=== PATIENT | female | born 1950 | race Caucasian/White ===

== ENCOUNTER 2016-12-08 21:22 | Inpatient (IN) | payer OTHER, MEDICARE ==
[~2016-12-08] VITALS: Ht 160 cm; Wt 51.0 kg
[~2016-12-08 21:22] MED LIST: ALBU.5I NEB; ALBUAER3 INH; AZIT250T3 PO; LISI-515 PO; NAPR250T57 PO; PRED-503 PO; VENTAER INH
[2016-12-08] MEDS ORDERED: MORPHINE SULFATE 4 MG/ML INJ IV ONE (21:30)
[2016-12-08] MEDS ORDERED: SODIUM CHLORIDE 0.9% FLUSH 10 ML FLUSH IVF PRN (21:30)
[2016-12-08 21:31] VITALS: BP 209/88; PULSE 82; RESP 24; TEMP 94.4; O2SAT 100
[2016-12-08] MEDS ORDERED: SODIUM CHLOR 0.9% 1000 ML INJ 800 ML IV ONE (21:51)
[2016-12-08] MEDS ORDERED: SODIUM CHLOR 0.9% 1000 ML INJ 1,000 ML IV ONE (21:51)
--- NOTE | 2016-12-08 21:51 | PD ---
HPI . Vomiting and abdominal pain Chief Complaint: GI Complaint Time Seen by Provider: 21:37 Travel History International Travel<30 days: No Contact w/Intl Traveler<30days: No Traveled to known affect area: No History of Present Illness HPI Patient presents to us via EMS with the acute onset of abdominal pain followed by nausea and vomiting. She states that it started after supper. She reports 4 episodes of emesis. No diarrhea. She reports severe, crampy abdominal pain. Pain has been unrelieved by vomiting. She is also having shaking chills. She denies any urinary symptoms. PFSH Past Medical History Cancer: No Cardiovascular Problems: No COPD: Yes Diminished Hearing: No Endocrine: No Genitourinary: No Hypertension: Yes Immune Disorder: No Musculoskeletal: Yes Neurologic: Yes Psychiatric: No Reproductive: Yes (HYSTERECTOMY) Respiratory: Yes Past Surgical History Abdominal Surgery: Yes (APPENDECTOMY) Appendectomy: Yes Cardiac Surgery: No Ear Surgery: No Endocrine Surgery: No Eye Surgery: No Genitourinary Surgery: No Gynecologic Surgery: Yes (HYSTERECTOMY) Hysterectomy: Yes Oral Surgery: Yes (TONSILLECTOMY) Thoracic Surgery: No Other Surgery: Yes Social History Alcohol Use: No Tobacco Use: Yes (1 ppd) Substance Use: Yes (MARIJUANA ) Allergies-Medications (Allergen,Severity, Reaction): Coded Allergies: Penicillin (Verified Allergy, Severe, 08/20/16) Codeine (Verified Adverse Reaction, Mild, nausea , 08/20/16) Uncoded Allergies: ? Other unknown meds (Allergy, Mild, 07/19/06) Reported Meds & Prescriptions Reported Meds & Active Scripts Active Ventolin Hfa 18 GM Inh (Albuterol Sulfate) 90 Mcg/Act Aer 2 Puff INH Q4-6H PRN May substitute for different brand albuterol inhaler. Deltasone (Prednisone) 20 Mg Tab 40 Mg PO DAILY 10 Days Albuterol Neb (Albuterol Sulfate) 2.5 Mg/0.5 Ml Neb 2.5 Mg NEB TID NEB PRN Note: The Albuterol Sulfate Inhalation Solution is concentrated and must be diluted. Read complete instructions carefully before using. Reported Tylenol (Acetaminophen) 325 Mg Tab 1,300 Mg PO DAILY PRN Lisinopril 20 Mg Tab 20 Mg PO BID Review of Systems Except as stated in HPI: all other systems reviewed are Neg General / Constitutional: Positive: Fever, Chills Respiratory: No: Cough Gastrointestinal: Positive: Nausea, Vomiting, Abdominal Pain, No: Diarrhea Genitourinary: No: Urgency, Frequency, Dysuria Physical Exam Narrative GENERAL: This is a small woman who is having rigors. Her rectal temp was about 94. SKIN: Warm and dry. HEAD: Atraumatic. Normocephalic. EYES: Pupils equal and round. ENT: No nasal bleeding or discharge. Mucous membranes pink but dry. NECK: Trachea midline. Neck supple. CARDIOVASCULAR: Regular rate and rhythm. Heart sounds are normal. RESPIRATORY: No accessory muscle use. Lungs sounded clear. She is tachypneic. GASTROINTESTINAL: Abdomen soft, non-tender, nondistended. MUSCULOSKELETAL: No obvious deformities. No edema. NEUROLOGICAL: Awake and alert. No obvious cranial nerve deficits. Motor grossly within normal limits. Normal speech. PSYCHIATRIC: Appropriate mood and affect; insight and judgment normal. Data Data Last Documented VS Vital Signs Date Time Temp Pulse Resp B/P Pulse Ox O2 Delivery O2 Flow Rate FiO2 12/08/16 22:52 96.6 79 18 165/76 93 Room Air Orders Complete Blood Count With Diff (12/08/16 21:27) Basic Metabolic Panel (Bmp) (12/08/16 21:27) Urinalysis - C+S If Indicated (12/08/16 21:27) Iv Access Insert/Monitor (12/08/16 21:27) Ecg Monitoring (12/08/16 21:27) Oximetry (12/08/16 21:27) Morphine Inj (Morphine Inj) (12/08/16 21:30) Sodium Chloride 0.9% Flush (Ns Flush) (12/08/16 21:30) Blood Culture (12/08/16 21:27) Urinary Catheter Insert/Apply (12/08/16 21:27) Lactic Acid Sepsis Protocol (12/08/16 21:27) Chest, Single Ap (12/08/16 21:51) Sodium Chlor 0.9% 1000 Ml Inj (Ns 1000 M (12/08/16 21:51) Sodium Chlor 0.9% 1000 Ml Inj (Ns 1000 M (12/08/16 21:51) Ct Abd/Pel W/O Iv Contrast (12/08/16 21:54) Vancomycin Inj (Vancomycin Inj) (12/08/16 23:21) Aztreonam Inj (Azactam Inj) (12/08/16 23:21) Metronidazole 500 Mg Inj (Flagyl 500 Mg (12/08/16 23:21) Labs Laboratory Tests Test 12/08/16 12/08/16 22:03 22:05 Urine Color YELLOW Urine Turbidity CLEAR Urine pH 5.5 Urine Specific [place] 1.016 Urine Protein TRACE mg/dL Urine Glucose (UA) NEG mg/dL Urine Ketones NEG mg/dL Urine Occult Blood NEG Urine Nitrite NEG Urine Bilirubin NEG Urine Urobilinogen LESS THAN 2.0 MG/DL Urine Leukocyte Esterase NEG Urine RBC LESS THAN 1 /hpf Urine WBC LESS THAN 1 /hpf Urine Hyaline Casts 27 /lpf Urine Mucus FEW /lpf Microscopic Urinalysis Comment CULT NOT INDICATED White Blood Count 17.0 TH/MM3 Red Blood Count 4.60 MIL/MM3 Hemoglobin 13.6 GM/DL Hematocrit 41.9 % Mean Corpuscular Volume 91.0 FL Mean Corpuscular Hemoglobin 29.5 PG Mean Corpuscular Hemoglobin 32.4 % Concent Red Cell Distribution Width 15.2 % Platelet Count 305 TH/MM3 Mean Platelet Volume 9.6 FL Neutrophils (%) (Auto) 63.2 % Lymphocytes (%) (Auto) 29.6 % Monocytes (%) (Auto) 4.6 % Eosinophils (%) (Auto) 1.9 % Basophils (%) (Auto) 0.7 % Neutrophils # (Auto) 10.8 TH/MM3 Lymphocytes # (Auto) 5.0 TH/MM3 Monocytes # (Auto) 0.8 TH/MM3 Eosinophils # (Auto) 0.3 TH/MM3 Basophils # (Auto) 0.1 TH/MM3 CBC Comment DIFF FINAL Differential Comment Sodium Level 135 MEQ/L Potassium Level 4.4 MEQ/L Chloride Level 102 MEQ/L Carbon Dioxide Level 21.7 MEQ/L Anion Gap 11 MEQ/L Blood Urea Nitrogen 31 MG/DL Creatinine 2.01 MG/DL Estimat Glomerular Filtration 25 ML/MIN Rate Random Glucose 127 MG/DL Lactic Acid Level 2.6 mmol/L Calcium Level 8.6 MG/DL [facility] Medical Decision Making Medical Screen Exam Complete: Yes Emergency Medical Condition: Yes Medical Record Reviewed: Yes (medical history is positive for COPD and hypertension) Differential Diagnosis Differential diagnosis of abdominal pain includes but is not limited to gastritis, pancreatitis, hepatitis, gastroenteritis, gallbladder disease, constipation, urinary retention, UTI, peptic ulcer disease, diverticulitis or appendicitis Narrative Course Patient presents to us via EMS with vomiting and abdominal pain. She is hypothermic. I have initiated a septic workup. CBC & BMP Diagram 12/08/16 22:05 Lactic acid is 2.6. UA is negative. Last Impressions Abdomen/Pelvis CT 12/08/162153 Signed Impressions: Service Date/Time: Thursday, December 08, 2016 22:25 - CONCLUSION: Marked thickening of the wall the colon which may reflect pseudomembranous colitis or other infectious or inflammatory etiologies. No perforation is seen Reinaldo Anthony MD Chest X-Ray 12/08/162150 Signed Impressions: Service Date/Time: Thursday, December 08, 2016 21:57 - CONCLUSION: 1. No active disease. Capsular calcifications around breast implants. Adan Carbajal MD Critical Care Narrative Aggregate critical care time was 45 minutes. Time to perform other separately billable procedures was not included in the critical care time. My time did not include minutes spent treating any other patients simultaneously or on activities that did not directly contribute to the patient's treatment. The services I provided to this patient were to treat and/or prevent clinically significant deterioration due to hypothermia, rule out sepsis I provided critical care services requiring my management, as noted below: Chart data review, documentation time, medication orders and management, vital sign assessments/reviewing monitor data, ordering and reviewing lab tests, ordering and interpreting/reviewing x-rays and diagnostic studies, care of the patient and discussion of the patient with the admitting physicians Sepsis Criteria SIRS Criteria (2 or more): Temp > 100.9 or < 96.8, RR > 20 or PaCO2 < 32, WBC > 10498, < 4000 or > 10% bands Sepsis Criteria (SIRS+source): Infect source susp/known Severe Sepsis (+one): Lactate >2 Criteria Outcome: Meets SIRS criteria, Meets sepsis criteria, Meets severe sepsis criteria Physician Communication Physician Communication Patient will be admitted to Dr. Garcia. Diagnosis Primary Impression: Sepsis Qualified Code: A41.9 - Sepsis, due to unspecified organism Additional Impression: Colitis Admitting Information Admitting Physician Requests: Admit Condition: Stable Nguyen Lamb MD Dec 08, 2016 21:51
[2016-12-08 22:09] VITALS: BP 166/77; PULSE 78; RESP 17; TEMP 96.1; O2SAT 96
[2016-12-08 22:33] LABS: BLOOD, URINE NEG (NEG); COMMENT (UR) CULT NOT INDICATED; CULTURE IF INDICATED CULT NOT INDICATED; GLUCOSE,URINE NEG (NEG); HYALINE CAST, URINE 27 /lpf (RARE); KETONE, URINE NEG (NEG); MUCUS URINE FEW /lpf (OCC); NITRITE,URINE NEG (NEG); PH, URINE 5.5 (5.0-8.5); URINE COLOR YELLOW (YELLW/STRAW)
[2016-12-08 22:33] LABS: AUTOMATED NEUTROPHIL # 10.8 TH/MM3 (1.8-7.7); BASOPHIL # 0.1 TH/MM3 (0-0.2); BASOPHIL % 0.7 % (0.0-2.0); EOSINOPHIL # 0.3 TH/MM3 (0-0.4); EOSINOPHIL % 1.9 % (0.0-4.0); HEMATOCRIT 41.9 % (35.0-46.0); HEMO FLAGS DIFF FINAL; LYMPH % 29.6 % (9.0-44.0); MEAN CORPUSCULAR HEMOGLOBIN 29.5 PG (27.0-34.0); MEAN CORPUSCULAR HGB CONC 32.4 % (32.0-36.0); MONO % 4.6 % (0.0-8.0); NEUT % 63.2 % (16.0-70.0); PLATELET COUNT 305 TH/MM3 (150-450); RED CELL DISTRIBUTION WIDTH 15.2 % (11.6-17.2)
[2016-12-08 22:51] LABS: BICARBONATE 21.7 MEQ/L (21.0-32.0); POTASSIUM 4.4 MEQ/L (3.5-5.1)
[2016-12-08 22:52] VITALS: BP 165/76; PULSE 79; RESP 18; TEMP 96.6; O2SAT 93
--- NOTE | 2016-12-08 22:54 | RADRPT ---
EXAM DATE/TIME: 12/08/2016 21:57 [facility] COMPARISON: CHEST SINGLE AP, June 06, 2014, 19:14. INDICATIONS : Fever. MEDICAL HISTORY : Chronic obstructive pulmonary disease. SURGICAL HISTORY : None. ENCOUNTER: Initial ACUITY: 1 day PAIN SCORE: 0/10 LOCATION: chest FINDINGS: A single view of the chest demonstrates the lungs to be symmetrically aerated without evidence of mas s, infiltrate or effusion. The cardiomediastinal contours are unremarkable. Osseous structures are intact. CONCLUSION: 1. No active disease. Capsular calcifications around breast implants. Adan Carbajal MD on December 08, 2016 at 22:51 Board Certified Radiologist. This report was verified electronically.
[2016-12-08] MEDS ORDERED: TYLE325T PO (22:55)
--- NOTE | 2016-12-08 23:10 | RADRPT ---
EXAM DATE/TIME: 12/08/2016 22:25 [facility] COMPARISON: No previous studies available for comparison. INDICATIONS : Abdominal pain, nausea and vomiting with near sycope. ORAL CONTRAST: No oral contrast ingested. RADIATION DOSE: 4.51 CTDIvol (mGy) MEDICAL HISTORY : Non-responsive. SURGICAL HISTORY : Non-responsive. ENCOUNTER: Initial ACUITY: 1 day PAIN SCALE: Non-responsive LOCATION: abdomen TECHNIQUE: Volumetric scanning of the abdomen and pelvis was performed. Using automated exposure control and ad justment of the mA and/or kV according to patient size, radiation dose was kept as low as reasonably achievable to obtain optimal diagnostic quality images. FINDINGS: There are centrilobular emphysematous changes in both lower lobes. The gallbladder and pancreas are u nremarkable. No intrahepatic or extrahepatic ductal dilatation is seen. The adrenal glands are unrema rkable. There is a small atrophic left kidney. The right kidney is hypertrophied and rotated into the axial plane. No abnormally enlarged lymph nodes are identified. There is marked thickening of the wall of the colon particularly the transverse colon which may refle ct pseudomembranous colitis. There is sparing of the sigmoid colon and right colon. No free air is id entified. A Davis catheter is present within the bladder which does not allow for evaluation. CONCLUSION: Marked thickening of the wall the colon which may reflect pseudomembranous colitis or other infectiou s or inflammatory etiologies. No perforation is seen Reinaldo Anthony MD on December 08, 2016 at 23:04 Board Certified Radiologist. This report was verified electronically.
[2016-12-08] MEDS ORDERED: AZTREONAM INJ 2,000 MG in SODIUM CHLORIDE 0.9% INJ 100 ML IV STA (23:21)
[2016-12-08] MEDS ORDERED: metroNIDAZOLE 500 MG INJ 100 ML IV STA (23:21)
[2016-12-08] MEDS ORDERED: VANCOMYCIN INJ 1,000 MG in SODIUM CHLOR 0.9% 250 ML INJ 250 ML IV STA (23:21)
[2016-12-08] MEDS ORDERED: NALOXONE HCL 0.4 MG/ML AMP IV PRN (23:45)
[2016-12-08] MEDS ORDERED: ACETAMINOPHEN 325 MG TAB PO PRN (23:45)
[2016-12-08] MEDS: SODIUM CHLOR 0.9% 1000 ML INJ 1,000 ML IV SCH (23:57)
[2016-12-09] VITALS (11 sets, daily range): BP systolic 142–218; BP diastolic 82–107; PULSE 82–90; RESP 16–20; TEMP 95.7–97.9; O2SAT 94–100
[2016-12-09] MEDS ORDERED: ALBUTEROL SULFATE 90 MCG/ACT HFA 18 GM INHALER INH PRN
[2016-12-09 00:15] LABS: LACTIC ACID GHOST NOT REPORTABLE
[2016-12-09] MEDS: HEPARIN SODIUM - SQ 10,000 UNITS/ML VIAL SQ SCH ×2 (00:52→13:38)
[2016-12-09] MEDS: MORPHINE SULFATE 4 MG/ML INJ IV PRN ×3 (01:29→19:58)
[2016-12-09] MEDS: cloNIDine HCL 0.1 MG TAB PO PRN ×3 (03:28→21:56)
[2016-12-09 05:08] LABS: C. DIFF EPI 027 PRESUMPTIVE NEGATIVE (NEGATIVE); C. DIFF TOXIN PCR NEGATIVE (NEGATIVE)
[2016-12-09 07:38] LABS: ALKALINE PHOSPHATASE 130 U/L (45-117); ALT (GPT) 20 U/L (10-53); ANION GAP 8 MEQ/L (5-15); AST (GOT) 18 U/L (15-37); BICARBONATE 19.2 MEQ/L (21.0-32.0); BLOOD UREA NITROGEN 27 MG/DL (7-18); CHLORIDE 111 MEQ/L (98-107); GLOMERULAR FILTRATION RATE 38 ML/MIN (>89); POTASSIUM 4.4 MEQ/L (3.5-5.1); SODIUM (NA) 138 MEQ/L (136-145); TOTAL BILIRUBIN ADULT 0.3 MG/DL (0.2-1.0)
[2016-12-09] MEDS: RESP: ALBUTEROL 2.5 MG/IPRATROPIUM 0.5 MG NEB (PRN) NEB ×2 (08:58→14:28)
[2016-12-09] MEDS: predniSONE 20 MG TAB PO SCH (09:12)
[2016-12-09] MEDS: metroNIDAZOLE 500 MG INJ 100 ML IV SCH ×3 (09:12→23:46)
[2016-12-09] MEDS: LISINOPRIL 20 MG TAB PO SCH ×2 (09:12→19:44)
[2016-12-09] MEDS: SODIUM CHLORIDE 0.9% FLUSH 10 ML FLUSH IV FLUSH SCH ×2 (09:12→19:44)
[2016-12-09] MEDS: SODIUM CHLOR 0.9% 1000 ML INJ 1,000 ML IV SCH (09:41)
[2016-12-09] MEDS: ONDANSETRON HCL 4 MG/2 ML VIAL IVP PRN (11:23)
[2016-12-09] MEDS: AZTREONAM INJ 1,000 MG in SODIUM CHLORIDE 0.9% INJ 100 ML IV SCH ×2 (11:24→22:24)
[2016-12-09] MEDS ORDERED: FUROSEMIDE 20 MG/2 ML VIAL IV PUSH ONE (12:30)
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
[2016-12-09] MEDS: NIFEdipine 60 MG SUSTAINED RELEASE TAB PO SCH (13:38)
[2016-12-09] MEDS ORDERED: PEG (High)/E-LYTE SOLN 4000 ML BTL PO ONE (16:00)
[2016-12-09] MEDS: CIPROFLOXACIN 500 MG TAB PO SCH (19:44)
[2016-12-10] VITALS (8 sets, daily range): BP systolic 148–218; BP diastolic 72–100; PULSE 75–87; RESP 17–18; TEMP 96.5–99.3; O2SAT 94–100
[2016-12-10] MEDS: SODIUM CHLOR 0.9% 1000 ML INJ 1,000 ML IV SCH ×2 (02:47→22:47)
[2016-12-10] MEDS ORDERED: SOD PHOSPHATE/SOD BIPHOSPHATE (ADULT) ENEMA 133ML RECTAL ONE (07:00)
[2016-12-10] MEDS ORDERED: MAGNESIUM CITRATE SOLN 300 ML BTL PO ONE (07:00)
[2016-12-10] MEDS ORDERED: INSULIN HUMAN REGULAR 1,000 UNITS/10 ML VIAL SQ PRN (08:30)
[2016-12-10] MEDS ORDERED: SODIUM CHLORID 0.9% 500 ML IV PRN (08:30)
[2016-12-10] MEDS ORDERED: CHLORHEXIDINE GLUCONATE 2 % 1 PACK (2 CLOTHS) TOPICAL PRN (08:30)
[2016-12-10] MEDS ORDERED: POVIDONE IODINE 5% (ANTISEPSIS KIT) 4 APPLICATIONS EACH NARE PRN (08:30)
[2016-12-10] MEDS ORDERED: LACTATED RINGER'S 1000 ML IV PRN (08:30)
[2016-12-10] MEDS ORDERED: METOPROLOL TARTRATE 25 MG TAB PO PRN (08:30)
[2016-12-10] MEDS: metroNIDAZOLE 500 MG INJ 100 ML IV SCH ×2 (08:31→16:37)
[2016-12-10] MEDS: RESP: ALBUTEROL 2.5 MG/IPRATROPIUM 0.5 MG NEB (PRN) NEB ×2 (08:46→20:38)
[2016-12-10] MEDS: NIFEdipine 60 MG SUSTAINED RELEASE TAB PO SCH (09:00)
[2016-12-10] MEDS: LISINOPRIL 20 MG TAB PO SCH ×2 (09:00→21:00)
[2016-12-10] MEDS: predniSONE 20 MG TAB PO SCH (09:00)
[2016-12-10] MEDS: SODIUM CHLORIDE 0.9% FLUSH 10 ML FLUSH IV FLUSH SCH (09:00)
[2016-12-10] MEDS: CIPROFLOXACIN 500 MG TAB PO SCH ×2 (09:00→21:00)
[2016-12-10] MEDS: AZTREONAM INJ 1,000 MG in SODIUM CHLORIDE 0.9% INJ 100 ML IV SCH ×2 (10:00→22:00)
[2016-12-10] MEDS ORDERED: PROPOFOL 200 MG/20 ML AMP IV ONE (11:02)
--- NOTE | 2016-12-10 11:24 | GIPROC ---
[facility] [address] [facility]. [facility], [address] COLONOSCOPY PROCEDURE REPORT EXAM DATE: 12/10/2016 PATIENT NAME: Tianna Alcocer MR #: [id number] BIRTHDATE: 1950 ENDOSCOPIST: Cynthia Figueroa MD ORDER #: [id number] JOCKEY VALET: Deven Ibarra and Huber Mcgowan STATUS: inpatient INDICATIONS: The patient is a 66 yr old female here for a colonoscopy due to abdominal pain, colitis PROCEDURE PERFORMED: Colonoscopy with biopsy MEDICATIONS: None and Per Anesthesia. PREP QUALITY: fair PREP TYPE:GoLytely ESTIMATED BLOOD LOSS: None CONSENT: The patient understands the risks and benefits of the procedure and understands that these risks include, but are not limited to: sedation, allergic reaction, infection, perforation and/or bleeding. Alternative means of evaluation and treatment include, among others: physical exam, x-rays, and/or surgical intervention. The patient elects to proceed with this endoscopic procedure. medical equipment was checked for proper function. Hand hygiene and appropriate measures for infection prevention was taken. After the risks, benefits and alternatives of the procedure were thoroughly explained, Informed consent was verified, confirmed and timeout was successfully executed by the treatment team. A digital exam revealed external hemorrhoids The Pentax [id number] endoscope was introduced through the anus and advanced to the cecum, which was identified by both the appendix and ileocecal valve. The instrument was then slowly withdrawn as the colon was fully examined. COLON FINDINGS: Diverticulosis sigmoid,descending colitis at splenic felxure, descending consistent with ischemic colitis -biopsies. Retroflexed views revealed internal hemorrhoids and Retroflexed views revealed small internal hemorrhoids The scope was then completely withdrawn from the patient and the procedure terminated. PROCEDURE WITHDRAWAL TIME:10minutes ADVERSE EVENTS: There were no complications. IMPRESSIONS: 1. Diverticulosis sigmoid,descending colitis at splenic felxure, descending consistent with ischemic colitis -biopsies 2. Retroflexed views revealed internal hemorrhoids 3. Retroflexed views revealed small internal hemorrhoids 4. Revealed external hemorrhoids RECOMMENDATIONS: 1. Await biopsy results. Biopsy results will not be ready for 7-10 days. If you don't hear from us in two weeks, call our office for results. 2. Probiotics from any [facility] or health food store 3. Avoid NSAIDS and Aspirin RECALL: Colonoscopy, pending biopsy results Cynthia Figueroa MD eSigned: Cynthia Figueroa MD 12/10/2016 11:23 AM cc: PATIENT NAME: Tianna Alcocer MR#: [id number]
[2016-12-10] MEDS ORDERED: DO NOT ADM ANY ANTICOAGULANT DRUGS PRN (12:15)
--- NOTE | 2016-12-10 12:45 | HHI.PR ---
Subjective Subjective Remarks Just got back from colonoscopy Feeling poorly, has been in the bathroom since last night because of prep Diffuse abdominal tenderness Poor appetite No fever No chest pain Shortness of breath Review of Systems Constitutional Constitutional Remarks 12 point review of systems completed, negative except as noted above Vitals/Results Intake & Output 12/09/16 12/09/16 12/10/16 15:00 23:00 07:00 Intake Total 1821 ml 720 ml 290 ml Output Total 1500 ml 1400 ml 1000 ml Balance 321 ml -680 ml -710 ml Intake Oral 660 ml 480 ml 0 ml IV Total 1161 ml 240 ml 290 ml Output Urine Total 1500 ml 1400 ml 1000 ml # Voids 0 # Bowel Movements 1 2 3 Vital Signs Vital Signs Date Time Temp Pulse Resp B/P Pulse Ox O2 Delivery O2 Flow Rate FiO2 12/10/16 11:58 77 18 192/88 99 Nasal Cannula 2 12/10/16 11:45 74 18 189/91 96 Nasal Cannula 2 12/10/16 11:28 97.8 71 18 185/90 96 Nasal Cannula 4 12/10/16 08:46 94 Nasal Cannula 2.00 12/10/16 07:58 96.5 76 17 165/77 96 12/10/16 04:15 Manual Cuff/Auscultation 12/10/16 01:15 98.6 80 17 154/81 96 12/09/16 21:45 96.9 82 16 192/91 100 12/09/16 21:43 96 Nasal Cannula 2.00 12/09/16 16:15 97.9 85 17 142/82 97 CBC/BMP: 12/08/16 2205 12/09/16 0613 Microbiology Microbiology 12/09/16 Rotavirus Antigen - Final, Complete NEGATIVE - ROTAVIRUS ANTIGEN IS ABSEN... 12/09/16 , Received Pending 12/09/16 Stool Pus (AIDE) - Final, Complete RARE WBC Physical Exam General General Appearance: Well Developed, No Acute Distress, Comfortable Eyes Eye Exam: Pupils Equal, Pupils Reactive Ears & Nose Ears & Nose Exam: Nasal Mucosa [place] Throat Throat Exam: Oral Mucosa [place] & Moist Neck Neck Exam: Neck Supple, Trachea Midline Pulmonary Resp Exam: No Distress, Decreased Bases Cardiology CV Exam: Regular, Good Perfusion Gastrointestinal/Abdomen GI Exam: Soft, Positive Bowel Movement, Non-Distended, Bowel Sounds Hypoactive GI Remarks Diffuse tenderness Musculoskeletal MS Exam: Joints Intact Integumentary Skin Exam: Warm, Dry Neurologic Neuro Exam: Alert, Awake, Oriented, Speech Clear, Moving All Extremities, No Focal Deficits Psychiatric Psych Exam: Appropriate Responses VTE Prophylaxis VTE Prophylaxis Device: SCDs Assessment/Plan Problem List: (1) Sepsis (2) Colitis (3) Hypertension Plan: Uncontrolled (4) Renal insufficiency (5) COPD (chronic obstructive pulmonary disease) (6) Leukocytosis (7) Abdominal pain Assessment/Plan Continue with empiric antibiotics-Cipro, Azactam, Flagyl C. difficile negative, stool cultures negative. Continue with by mouth steroids Appreciate GI input Status post colonoscopy 12/10-findings of diverticulosis, ischemic colitis, gastritis. Biopsy pending. Recommends no NSAIDs, no aspirin. Duo nebs when necessary Tobacco abuse counseling Renal function improving Continue with IV fluids Blood pressure poorly controlled, continue with home medications We will add Vasotec as needed for elevated blood pressure, systolic > 160, diastolic greater than 90 Repeat labs in the morning SCDs for DVT prophylaxis Possible discharge tomorrow if okay with gastroenterology D/W RN D/W Dr. Garcia D/W pt. This patient was seen by myself and , this note is written on his behalf Problem Qualifiers (1) Sepsis: Qualified Code: A41.9 - Sepsis, due to unspecified organism (2) Hypertension: Qualified Code: I10 - Essential hypertension (3) COPD (chronic obstructive pulmonary disease): Qualified Code: J44.9 - Chronic obstructive pulmonary disease, unspecified COPD type (4) Leukocytosis: Qualified Code: D72.829 - Leukocytosis, unspecified type (5) Abdominal pain: Qualified Code: R10.84 - Generalized abdominal pain Fatuma Abel Dec 10, 2016 12:45
[2016-12-10] MEDS: cloNIDine HCL 0.1 MG TAB PO PRN (13:08)
[2016-12-10] MEDS ORDERED: ENALAPRILAT 1.25 MG/ML VIAL IV PUSH PRN (14:45)
[2016-12-11] VITALS (8 sets, daily range): BP systolic 100–185; BP diastolic 64–96; PULSE 69–98; RESP 17–18; TEMP 96.8–99.1; O2SAT 95–100
[2016-12-11] MEDS: metroNIDAZOLE 500 MG INJ 100 ML IV SCH ×4 (00:03→23:49)
[2016-12-11] MEDS: SODIUM CHLORIDE 0.9% FLUSH 10 ML FLUSH IV FLUSH SCH ×3 (00:04→21:43)
[2016-12-11] MEDS: MORPHINE SULFATE 4 MG/ML INJ IV PRN ×4 (00:05→23:48)
[2016-12-11] MEDS: cloNIDine HCL 0.1 MG TAB PO PRN (06:11)
[2016-12-11 07:17] LABS: HEMATOCRIT 33.8 % (35.0-46.0); MEAN CELL VOLUME 89.2 FL (80.0-100.0); MEAN CORPUSCULAR HEMOGLOBIN 30.2 PG (27.0-34.0); MEAN CORPUSCULAR HGB CONC 33.9 % (32.0-36.0); PLATELET COUNT 214 TH/MM3 (150-450); RED BLOOD COUNT 3.79 MIL/MM3 (4.00-5.30); REVIEW FLAG FINAL; WHITE BLOOD COUNT 12.4 TH/MM3 (4.0-11.0)
[2016-12-11] MEDS: RESP: ALBUTEROL 2.5 MG/IPRATROPIUM 0.5 MG NEB (PRN) NEB ×2 (07:40→19:54)
[2016-12-11 07:58] LABS: BICARBONATE 25.9 MEQ/L (21.0-32.0); MAGNESIUM 2.1 MG/DL (1.5-2.5); POTASSIUM 3.4 MEQ/L (3.5-5.1)
[2016-12-11] MEDS: SODIUM CHLOR 0.9% 1000 ML INJ 1,000 ML IV SCH (08:30)
[2016-12-11] MEDS: predniSONE 20 MG TAB PO SCH (08:33)
[2016-12-11] MEDS: LISINOPRIL 20 MG TAB PO SCH ×3 (08:33→21:43)
[2016-12-11] MEDS: CIPROFLOXACIN 500 MG TAB PO SCH ×2 (08:33→21:42)
[2016-12-11] MEDS: NIFEdipine 60 MG SUSTAINED RELEASE TAB PO SCH (08:33)
[2016-12-11] MEDS: ONDANSETRON HCL 4 MG/2 ML VIAL IVP PRN (08:38)
[2016-12-11] MEDS: AZTREONAM INJ 1,000 MG in SODIUM CHLORIDE 0.9% INJ 100 ML IV SCH ×2 (11:42→21:43)
[2016-12-11] MEDS: SODIUM CHLORIDE 0.9% FLUSH 10 ML FLUSH IV FLUSH PRN ×2 (11:42→15:54)
[2016-12-11] MEDS ORDERED: POTASSIUM CHLORIDE 25 MEQ EFFERVESCENT TAB PO ONE (12:15)
--- NOTE | 2016-12-11 13:48 | HHI.PR ---
Subjective Remarks resting in bed no diarrhea today talkative, mildly anxious no family in rm back pain, chronic? fever, low grade, 99.3 Objective Objective Results - Vital Signs Date Time Temp Pulse Resp B/P Pulse Ox O2 Delivery O2 Flow Rate FiO2 12/11/16 11:48 96.8 69 17 159/75 98 12/11/16 08:00 Nasal Cannula 2.00 12/11/16 07:42 95 Nasal Cannula 2.00 12/11/16 07:39 96.8 71 17 185/83 97 12/11/16 04:00 96.9 73 17 160/96 100 12/11/16 00:32 98.2 85 17 147/89 95 12/10/16 20:38 96 Nasal Cannula 2.00 12/10/16 19:00 99.3 87 18 160/83 96 12/10/16 15:55 99.2 75 17 151/72 96 12/10/16 14:38 148/73 I/O 12/10/16 12/10/16 12/10/16 12/11/16 12/11/16 12/11/16 07:00 15:00 23:00 07:00 15:00 23:00 Intake Total 290 ml 1240 ml 480 ml 480 ml 900 ml Output Total 1000 ml 1000 ml 550 ml Balance -710 ml 240 ml -70 ml 480 ml 900 ml Intake Oral 0 ml 540 ml 480 ml 480 ml IV Total 290 ml 100 ml 900 ml Other 600 ml Output Urine Total 1000 ml 1000 ml 550 ml Estimated Blood Loss 0 ml # Voids 0 2 # Bowel Movements 3 5 0 0 Result Diagram: 12/11/16 0652 12/11/16 0652 ROS General: Weakness, Other (10 point ROS done, abd. tenderness improved, other systems unremarkable or negative) GI: Abdominal Pain, Diarrhea Neuro/MS: Other (anxious) Physical Exam Physical Exam PHYSICAL EXAMINATION GENERAL: This is a thin female who appears to be in no acute distress at rest in the bed. She is alert and awake, mild anxiety HEAD: Normocephalic without any lesion or mass noted. Facial features appear symmetric. OROPHARYNGEAL: Oropharynx without erythema or edema. NECK: Supple. No nuchal rigidity or lymphadenopathy. Trachea midline without deviation. CARDIAC: Regular rhythm, regular rate, S1 and S2 are heard. Murmur none LUNGS: Diminished to auscultation bilaterally. no wheeze, no rhonchi, low volumes, ABDOMEN: Soft, mild tender, no organomegaly or masses. Bowel sounds are heard in all four quadrants. EXTREMITIES: no edema. Pulses equal bilateral. NEUROLOGICAL: Patient mood and affect appropriate, talkative. No focal deficit SKIN:Warm and moist Objective Remarks I am feeling better today but I have had a rough few days. My back is really bothering me between my shoulder blades A/P Assessment and Plan (1) Sepsis (2) Colitis (3) Hypertension (4) Renal insufficiency (5) COPD (chronic obstructive pulmonary disease) (6) Leukocytosis (7) Abdominal pain, colonoscopy shows probable ischemic colitis. Generalized tenderness but does show mild improvement today. No diarrhea today Hypokalemia, potassium 20 mEq given, will recheck BMP in the morning Continue with empiric antibiotics-Cipro, Azactam, Flagyl, leukocytosis improvement with medical management 12.4 today C. difficile negative, stool cultures negative. Continue with by mouth steroids Appreciate GI input Status post colonoscopy 12/10-findings of diverticulosis, ischemic colitis, gastritis. Biopsy pending. Recommends no NSAIDs, no aspirin. COPD ,Duo nebs when necessary Tobacco abuse counseling Blood pressure poorly controlled, but now controlled with medication management , normal range today We will add Vasotec as needed for elevated blood pressure, systolic > 160, diastolic greater than 90 SCDs for DVT prophylaxis Possible discharge after okay with GI, still has some mild tenderness but states it is improving. Chief complaint , back pain probable chronic, x-rays were done back in July. Probable follow-up as an outpatient for any further testing D/W patient D/W Dr. Garcia seen on his behalf Discussed With: Vera Anderson Dec 11, 2016 13:48
--- NOTE | 2016-12-11 18:00 | HHI.GIFU ---
GI Follow-up Note Consult Follow-up Subjective: Patient laying in bed comfortably, feeling better, tolerated food well.Still some zafar in lower abdomen.No nausea, vomiting Objective: PHYSICAL EXAMINATION: Vitals signs stable No fever Vital Signs Date Time Temp Pulse Resp B/P Pulse Ox O2 Delivery O2 Flow Rate FiO2 12/11/16 16:00 97.0 77 18 126/81 96 12/11/16 11:48 96.8 69 17 159/75 98 HEENT: Pupils round and reactive to light; normocephalic; atraumatic; no jaundice. Throat is clear. NECK: Neck is supple, no JVD, no lymphadenopathy. CHEST: Chest is clear to auscultation and percussion. CARDIAC: Regular rate and rhythm with no murmur gallop or rubs. ABDOMEN: Soft, nondistended, nontender; no hepatosplenomegaly; bowel sounds are present in all four quadrants. EXTREMITIES: No clubbing, cyanosis, or edema. SKIN: Normal; no rash; no jaundice. TRUCKER: No focal deficits; alert and oriented times three. Available Data (labs, X- Rays, Procedues) : Laboratory Tests Test 12/11/16 06:52 White Blood Count 12.4 TH/MM3 Red Blood Count 3.79 MIL/MM3 Hemoglobin 11.5 GM/DL Hematocrit 33.8 % Mean Corpuscular Volume 89.2 FL Mean Corpuscular Hemoglobin 30.2 PG Mean Corpuscular Hemoglobin 33.9 % Concent Red Cell Distribution Width 15.0 % Platelet Count 214 TH/MM3 Mean Platelet Volume 9.0 FL Sodium Level 138 MEQ/L Potassium Level 3.4 MEQ/L Chloride Level 104 MEQ/L Carbon Dioxide Level 25.9 MEQ/L Anion Gap 8 MEQ/L Blood Urea Nitrogen 13 MG/DL Creatinine 0.95 MG/DL Estimat Glomerular Filtration 59 ML/MIN Rate Random Glucose 99 MG/DL Calcium Level 8.4 MG/DL Magnesium Level 2.1 MG/DL ASSESSMENT/PLAN: abdominal pain, gi bleeding -secondary ischemic colitis ischemic colitis -awaiting pathology report, no indication of infectious process dehydration-renal function improved Recommendations await pathology report continue hydration iv antibiotics cta in am if renal function better It was a pleasure seeing Tianna Alcocer. Thank you for this consult. Entered by: Cynthia Wilks MD Dec 11, 2016 17:59
[2016-12-12] VITALS (9 sets, daily range): BP systolic 154–191; BP diastolic 77–90; PULSE 72–86; RESP 16–20; TEMP 97–99.2; O2SAT 94–100
[2016-12-12 08:34] LABS: BICARBONATE 27.9 MEQ/L (21.0-32.0); POTASSIUM 3.7 MEQ/L (3.5-5.1)
[2016-12-12] MEDS: metroNIDAZOLE 500 MG INJ 100 ML IV SCH ×2 (09:01→16:03)
[2016-12-12] MEDS: AZTREONAM INJ 1,000 MG in SODIUM CHLORIDE 0.9% INJ 100 ML IV SCH ×2 (09:01→21:56)
[2016-12-12] MEDS: SODIUM CHLOR 0.9% 1000 ML INJ 1,000 ML IV SCH (09:02)
[2016-12-12] MEDS: SODIUM CHLORIDE 0.9% FLUSH 10 ML FLUSH IV FLUSH SCH ×2 (09:02→21:55)
[2016-12-12] MEDS: predniSONE 20 MG TAB PO SCH (09:02)
[2016-12-12] MEDS: LISINOPRIL 20 MG TAB PO SCH ×2 (09:02→21:55)
[2016-12-12] MEDS: NIFEdipine 60 MG SUSTAINED RELEASE TAB PO SCH (09:02)
[2016-12-12] MEDS: CIPROFLOXACIN 500 MG TAB PO SCH ×2 (09:02→21:55)
[2016-12-12] MEDS ORDERED: IOHEXOL 350 MG/ML 10 ML VIAL (for RAD DIAG) IV ONE (11:34)
[2016-12-12] MEDS: RESP: ALBUTEROL 2.5 MG/IPRATROPIUM 0.5 MG NEB (PRN) NEB (11:42)
--- NOTE | 2016-12-12 13:16 | HHI.PR ---
Subjective Remarks resting in bed dozing, didnt sleep well last night. no diarrhea today talkative, mildly anxious no family in CT scan today Objective Objective Results - Vital Signs Date Time Temp Pulse Resp B/P Pulse Ox O2 Delivery O2 Flow Rate FiO2 12/12/16 11:44 97 21 12/12/16 08:00 98.1 72 20 157/81 100 12/12/16 04:25 97.0 76 17 173/81 95 12/12/16 00:20 97.2 84 17 168/77 96 12/11/16 19:54 96 Nasal Cannula 2.00 12/11/16 19:00 99.1 98 18 100/64 95 12/11/16 16:00 97.0 77 18 126/81 96 I/O 12/11/16 12/11/16 12/11/16 12/12/16 12/12/16 12/12/16 07:00 15:00 23:00 07:00 15:00 23:00 Intake Total 480 ml 1100 ml 240 ml 120 ml Output Total 1000 ml 750 ml 1150 ml Balance 480 ml 100 ml -510 ml -1030 ml Intake Oral 480 ml 200 ml 240 ml 120 ml IV Total 900 ml Output Urine Total 1000 ml 750 ml 1150 ml # Voids 2 # Bowel Movements 0 0 0 Result Diagram: 12/11/16 0652 12/12/16 0730 ROS General: Fatigue, Weakness, Other (10 point ROS done positives noted) Pulmonary: Cough (occasional) GI: Abdominal Pain, Other (mild cramping although improved today) Neuro/MS: Other (anxiety) Physical Exam Physical Exam PHYSICAL EXAMINATION GENERAL: This is a thin, female who appears to be in no acute distress at rest She is dozing but awakens easily HEAD: Normocephalic without any lesion or mass noted. Facial features appear symmetric. OROPHARYNGEAL: Oropharynx without erythema or edema. NECK: Supple. No nuchal rigidity or lymphadenopathy. Trachea midline without deviation. CARDIAC: Regular rhythm, regular rate, S1 and S2 are heard. Murmur soft no gallops or rubs. LUNGS: Clear to auscultation bilaterally. no wheeze, ABDOMEN: Soft, mild tenderness to light palpation, Bowel sounds are heard in all four quadrants. EXTREMITIES: no edema. Pulses equal bilateral. NEUROLOGICAL: Patient mood and affect mildly anxious. No focal deficit SKIN:Warm and moist Objective Remarks My belly is feeling better today, but still has a little soreness and cramping A/P Assessment and Plan (1) Sepsis (2) Colitis (3) Hypertension (4) Renal insufficiency (5) COPD (chronic obstructive pulmonary disease) (6) Leukocytosis (7) Abdominal pain, colonoscopy shows probable ischemic colitis. Generalized tenderness but does show mild improvement today. No diarrhea today Hypokalemia, Continue with empiric antibiotics-Cipro, Azactam, Flagyl, leukocytosis improvement with medical management 12.4 today C. difficile negative, stool cultures negative, no growth so far from blood cultures Continue with by mouth steroids Appreciate GI input secondary ischemic colitis ischemic colitis -pathology reports pending dehydration, resolving Patient tolerated heart healthy diet without any nausea or vomiting today Status post colonoscopy 12/10-findings of diverticulosis, ischemic colitis, gastritis. Biopsy pending. Recommends no NSAIDs, no aspirin. CT this morning shows pseudomembranous colitis, COPD ,Duo nebs when necessary Tobacco abuse counseling Blood pressure poorly controlled, but now controlled with medication management , normal range today We will add Vasotec as needed for elevated blood pressure, systolic > 160, diastolic greater than 90 SCDs for DVT prophylaxis discharge pending GI workup and opinion Chief complaint , back pain probable chronic, x-rays were done back in July. Probable follow-up as an outpatient for any further testing Discussed With: Nurse, Family (patient), Other (Dr. Garcia, seen on his behalf) Vera Sanon Dec 12, 2016 13:16
--- NOTE | 2016-12-12 14:04 | RADRPT ---
EXAM DATE/TIME: 12/12/2016 11:10 [facility] COMPARISON: No previous studies available for comparison. INDICATIONS : Ischemic colitis IV CONTRAST: 75 cc Omnipaque 350 (iohexol) IV Injection Site: Lt AC Lot: [id number] Exp Date: Sep 2019 Lot: Exp Date : ORAL CONTRAST: No oral contrast ingested. RADIATION DOSE: 7.54 CTDIvol (mGy) MEDICAL HISTORY : Hypertension. Chronic obstructive pulmonary disease. SURGICAL HISTORY : Appendectomy. Hysterectomy. ENCOUNTER: Initial ACUITY: 1 day PAIN SCALE: Non-responsive LOCATION: Abdomen TECHNIQUE: Volumetric scanning was performed using a multi-row detector CT scanner. The data was post processed with a variety of visualization algorithms including full volume maximum intensity projection, multi -planar sliding thin slab reformation, curved planar reformation, and surface rendering techniques. Using automated exposure control and adjustment of the mA and/or kV according to patient size, radiat ion dose was kept as low as reasonably achievable to obtain optimal diagnostic quality images. FINDINGS: CT of the abdomen and pelvis was performed in this patient with suspicion of ischemic colitis. Extensive atherosclerotic vascular disease is present in the aorta without significant aneurysmal dil atation. There is a large calcific plaque at the origin of the celiac that is probably not flow limiting. Plaque is seen at the origin of the superior mesenteric artery that is not felt to be flow limiting. Distal branches of the superior mesenteric artery are thin and attenuated. An FLAKITA is not demonstrated. There is minimal mesenteric collateralization evident suggesting some de gree of atherosclerotic calcific mesentery disease. Lung bases are clear. The liver is free of focal defects. Spleen is unremarkable. Pancreas and adr enals appear normal. The right renal artery is widely patent. There is a focal stenosis at the origin of the left renal a rtery felt to be hemodynamically significant. Pelvic contents are unremarkable. CONCLUSION: 1. Mild atherosclerotic vascular disease as described above. I do not see a significant flow-limiti ng stenosis; however, there is some mesenteric collateralization suggesting there is a small vessel i schemic disease evident. 2. Focal stenosis origin of the left renal artery is thought to be hemodynamically significant. 3. There is no evidence for abdominal aortic aneurysm. Carlos Henning MD FACR on December 12, 2016 at 13:40 Board Certified Radiologist. This report was verified electronically.
--- NOTE | 2016-12-12 15:09 | HHI.GIFU ---
Subjective Remarks Resting in bed. Feeling much better. Mild lower abdominal cramping- much improved. no diarrhea, no bleeding. Tolerating diet. States her b/p was elevated today. (Marcela Scales) Objective Vitals I&O Vital Signs Date Time Temp Pulse Resp B/P Pulse Ox O2 Delivery O2 Flow Rate FiO2 12/12/16 12:45 154/84 12/12/16 11:44 97 21 12/12/16 08:00 98.1 72 20 157/81 100 12/12/16 04:25 97.0 76 17 173/81 95 12/12/16 00:20 97.2 84 17 168/77 96 12/11/16 19:54 96 Nasal Cannula 2.00 12/11/16 19:00 99.1 98 18 100/64 95 12/11/16 16:00 97.0 77 18 126/81 96 I/O 12/11/16 12/11/16 12/11/16 12/12/16 12/12/16 12/12/16 07:00 15:00 23:00 07:00 15:00 23:00 Intake Total 480 ml 1100 ml 240 ml 120 ml Output Total 1000 ml 750 ml 1150 ml Balance 480 ml 100 ml -510 ml -1030 ml Intake Oral 480 ml 200 ml 240 ml 120 ml IV Total 900 ml Output Urine Total 1000 ml 750 ml 1150 ml # Voids 2 # Bowel Movements 0 0 0 Laboratory Laboratory Tests Test 12/12/16 07:30 Sodium Level 138 Potassium Level 3.7 Chloride Level 102 Carbon Dioxide Level 27.9 Anion Gap 8 Blood Urea Nitrogen 15 Creatinine 1.11 Estimat Glomerular Filtration 49 Rate Random Glucose 97 Calcium Level 8.7 Date/Time Procedure Status Source Growth 12/09/16 20:36 Ordered Stool Stool 12/09/16 20:20 Stool Pus (AIDE) - Final Complete Stool Stool RARE WBC 12/09/16 20:20 Rotavirus Antigen - Final Complete Stool Stool NEGATIVE - ROTAVIRUS ANTIGEN IS ABSEN... 12/09/16 20:20 - Final Complete Stool Stool NO ENTERIC PATHOGENS DETECTED BY PCR... 12/09/16 08:28 Cancelled Stool Stool 12/08/16 22:15 Aerobic Blood Culture - Preliminary Resulted Blood Peripheral NO GROWTH IN 4 DAYS 12/08/16 22:15 Anaerobic Blood Culture - Preliminary Resulted Blood Peripheral NO GROWTH IN 4 DAYS Imaging Last Impressions Abdomen/Pelvis CT 12/12/16 0000 Signed Impressions: Service Date/Time: Monday, December 12, 2016 11:10 - CONCLUSION: 1. Mild atherosclerotic vascular disease as described above. I do not see a significant flow-limiting stenosis; however, there is some mesenteric collateralization suggesting there is a small vessel ischemic disease evident. 2. Focal stenosis origin of the left renal artery is thought to be hemodynamically significant. 3. There is no evidence for abdominal aortic aneurysm. Carlos Henning MD FACR Chest X-Ray 12/08/162150 Signed Impressions: Service Date/Time: Thursday, December 08, 2016 21:57 - CONCLUSION: 1. No active disease. Capsular calcifications around breast implants. Adan Carbajal MD Physical Exam HEENT: Normocephalic; atraumatic; no jaundice CHEST: CTA CARDIAC: RRR ABDOMEN: Soft, nondistended, nontender; no hepatosplenomegaly; bowel sounds are present in all four quadrants. EXTREMITIES: No clubbing, cyanosis, or edema. SKIN: Normal; no rash; no jaundice. SALES RESEARCH ANALYST: No focal deficits; alert and oriented times three. (Marcela Scales) Assessment and Plan Plan ASSESSMENT: - Acute Colitis, N/V/Abdominal Pain. Abdomen/Pelvis CT (12/12/16)----> 1. Mild atherosclerotic vascular disease as described above. I do not see a significant flow-limiting stenosis; however, there is some mesenteric collateralization suggesting there is a small vessel ischemic disease evident. 2. Focal stenosis origin of the left renal artery is thought to be hemodynamically significant. 3. There is no evidence for abdominal aortic aneurysm. Colonoscopy (12/12/16)----> 1. Diverticulosis sigmoid,descending colitis at splenic flexure, descending consistent with ischemic colitis-biopsies 2. Retroflexed views revealed internal hemorrhoids 3. Retroflexed views revealed small internal hemorrhoids 4. Revealed external hemorrhoids. Pathology pending. Clinically much improved. WBC 12.4. Cipro/Flagyl. - Leukocytosis, secondary to above. WBC 12.4, Cipro/Flagyl - MAKAYLA, Improved. - HTN, legally blind COPD per attending Plan: - JAKOB - Await pathology - Cont. Flagyl/Cipro for now - Monitor labs - Supportive care - Further recommendations to follow based on results of above - Patient seen and examined by Dr. Figueroa and myself and this note is written on her behalf. (Marcela Scales) Physician Comments seen, examined agree with above discuss with dr schmidt , will order nephrology consult to evaluate the need for possible renal artery stent possible small vessel disease - as per cta (Cynthia Figueroa MD) Marcela Scales Dec 12, 2016 15:09 Cynthia Figueroa MD Dec 12, 2016 18:12
[2016-12-12] MEDS: MORPHINE SULFATE 4 MG/ML INJ IV PRN (21:58)
[2016-12-13] VITALS (9 sets, daily range): BP systolic 156–220; BP diastolic 72–115; PULSE 74–91; RESP 17–20; TEMP 96.8–99.5; O2SAT 94–98
[2016-12-13] MEDS: metroNIDAZOLE 500 MG INJ 100 ML IV SCH ×4 (00:11→23:53)
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
[2016-12-13] MEDS: RESP: ALBUTEROL 2.5 MG/IPRATROPIUM 0.5 MG NEB (PRN) NEB ×2 (08:09→20:23)
[2016-12-13] MEDS: LISINOPRIL 20 MG TAB PO SCH ×2 (08:16→20:56)
[2016-12-13] MEDS: NIFEdipine 60 MG SUSTAINED RELEASE TAB PO SCH ×2 (08:17→20:57)
[2016-12-13] MEDS: CIPROFLOXACIN 500 MG TAB PO SCH ×2 (08:17→20:56)
[2016-12-13] MEDS: predniSONE 20 MG TAB PO SCH (08:17)
[2016-12-13] MEDS: SODIUM CHLORIDE 0.9% FLUSH 10 ML FLUSH IV FLUSH SCH ×2 (08:17→20:56)
[2016-12-13] MEDS: SODIUM CHLOR 0.9% 1000 ML INJ 1,000 ML IV SCH (10:47)
[2016-12-13] MEDS: AZTREONAM INJ 1,000 MG in SODIUM CHLORIDE 0.9% INJ 100 ML IV SCH ×2 (11:11→22:23)
--- NOTE | 2016-12-13 11:22 | HHI.GIFU ---
Subjective Remarks Pt in bed, visiting with family. Says she feels much better. Still has some lower abdomimal pain, 5/10. NO n/v. No diarrhea today. No bleeding. No fever. (Sandy Henriquez) Objective Vitals I&O Vital Signs Date Time Temp Pulse Resp B/P Pulse Ox O2 Delivery O2 Flow Rate FiO2 12/13/16 08:09 95 21 12/13/16 08:00 97.6 80 20 197/93 95 12/13/16 04:52 96.8 76 18 161/74 95 12/13/16 00:50 97.2 80 18 160/72 95 12/12/16 20:30 99.2 82 16 156/77 95 12/12/16 18:32 96 21 12/12/16 17:00 97.8 86 20 178/84 94 12/12/16 12:45 154/84 12/12/16 12:00 97.6 77 20 191/90 98 12/12/16 11:44 97 21 I/O 12/12/16 12/12/16 12/12/16 12/13/16 12/13/16 12/13/16 07:00 15:00 23:00 07:00 15:00 23:00 Intake Total 120 ml 480 ml 240 ml 240 ml Output Total 1150 ml 1400 ml 400 ml 1550 ml Balance -1030 ml -920 ml -160 ml -1310 ml Intake Oral 120 ml 480 ml 240 ml 240 ml Output Urine Total 1150 ml 1400 ml 400 ml 1550 ml # Bowel Movements 0 0 0 0 Laboratory Date/Time Procedure Status Source Growth 12/09/16 20:36 Ordered Stool Stool 12/09/16 20:20 Stool Pus (AIDE) - Final Complete Stool Stool RARE WBC 12/09/16 20:20 Rotavirus Antigen - Final Complete Stool Stool NEGATIVE - ROTAVIRUS ANTIGEN IS ABSEN... 12/09/16 20:20 - Final Complete Stool Stool NO ENTERIC PATHOGENS DETECTED BY PCR... 12/09/16 08:28 Cancelled Stool Stool 12/08/16 22:15 Aerobic Blood Culture - Preliminary Resulted Blood Peripheral NO GROWTH IN 4 DAYS 12/08/16 22:15 Anaerobic Blood Culture - Preliminary Resulted Blood Peripheral NO GROWTH IN 4 DAYS Imaging Last Impressions Abdomen/Pelvis CT 12/12/16 0000 Signed Impressions: Service Date/Time: Monday, December 12, 2016 11:10 - CONCLUSION: 1. Mild atherosclerotic vascular disease as described above. I do not see a significant flow-limiting stenosis; however, there is some mesenteric collateralization suggesting there is a small vessel ischemic disease evident. 2. Focal stenosis origin of the left renal artery is thought to be hemodynamically significant. 3. There is no evidence for abdominal aortic aneurysm. Carlos Henning MD FACR Chest X-Ray 12/08/16 2151 Signed Impressions: Service Date/Time: Thursday, December 08, 2016 21:57 - CONCLUSION: 1. No active disease. Capsular calcifications around breast implants. Adan Carbajal MD Physical Exam HEENT: Normocephalic; atraumatic; no jaundice CHEST: CTA CARDIAC: RRR ABDOMEN: Soft, nondistended, lower abdominal tenderness; no hepatosplenomegaly ; bowel sounds are present in all four quadrants. EXTREMITIES: No clubbing, cyanosis, or edema. SKIN: Normal; no rash; no jaundice. CARD FILER: No focal deficits; alert and oriented times three. (Sandy Henriquez [facility]) Assessment and Plan Plan ASSESSMENT: - Acute Colitis, N/V/Abdominal Pain. improving. Abdomen/Pelvis CT (12/12/16)--- -> 1. Mild atherosclerotic vascular disease as described above. I do not see a significant flow-limiting stenosis; however, there is some mesenteric collateralization suggesting there is a small vessel ischemic disease evident. 2. Focal stenosis origin of the left renal artery is thought to be hemodynamically significant. 3. There is no evidence for abdominal aortic aneurysm. Colonoscopy (12/12/16)----> 1. Diverticulosis sigmoid,descending colitis at splenic flexure, descending consistent with ischemic colitis-biopsies 2. Retroflexed views revealed internal hemorrhoids 3. Retroflexed views revealed small internal hemorrhoids 4. Revealed external hemorrhoids. Pathology suggestive of ischemic colitis. Stool cultures neg for enteric pathogens, rotavirus. Clinically much improved. WBC 12.4. Cipro/Flagyl. - Leukocytosis, secondary to above. WBC 12.4, Cipro/Flagyl - MAKAYLA, Improved. - HTN, legally blind COPD per attending Plan: - JAKOB - Cont. Flagyl/Cipro for now - Monitor labs - Supportive care - Patient seen and examined by Dr. Figueroa and myself and this note is written on her behalf. (Sandy Henriquez) Physician Comments seen, examined agree with above pathology report discussed egd/colon 3 month fu office counselled about stopping smoking gi will sign off, call us as needed (Cynthia Figueroa MD) Sandy Henriquez Dec 13, 2016 11:22 Cynthia Figueroa MD Dec 13, 2016 15:19
[2016-12-13] MEDS: hydrALAZINE HCL 50 MG TAB PO SCH ×2 (13:39→22:23)
--- NOTE | 2016-12-13 15:39 | HHI.PR ---
Subjective Subjective Remarks minimal abd. pain no n/v appetite improving no cp no sob anxious BP elevated no fever motivated to quit smoking family at [facility] Review of Systems Constitutional Constitutional Remarks 12 point review of systems completed, negative except as noted above Vitals/Results Intake & Output 12/12/16 12/12/16 12/13/16 15:00 23:00 07:00 Intake Total 480 ml 240 ml 240 ml Output Total 1400 ml 400 ml 1550 ml Balance -920 ml -160 ml -1310 ml Intake Oral 480 ml 240 ml 240 ml Output Urine Total 1400 ml 400 ml 1550 ml # Bowel Movements 0 0 0 Vital Signs Vital Signs Date Time Temp Pulse Resp B/P Pulse Ox O2 Delivery O2 Flow Rate FiO2 12/13/16 13:40 74 17 /115 98 12/13/16 12:00 99.5 74 20 220/102 95 12/13/16 08:09 95 21 12/13/16 08:00 97.6 80 20 197/93 95 12/13/16 04:52 96.8 76 18 161/74 95 12/13/16 00:50 97.2 80 18 160/72 95 12/12/16 20:30 99.2 82 16 156/77 95 12/12/16 18:32 96 21 12/12/16 17:00 97.8 86 20 178/84 94 CBC/BMP: 12/11/16 0652 12/12/16 0730 Physical Exam General General Appearance: Well Developed, No Acute Distress, Comfortable Eyes Eye Exam: Pupils Equal, Pupils Reactive Ears & Nose Ears & Nose Exam: Nasal Mucosa Tobias Throat Throat Exam: Oral Mucosa Tobias & Moist Neck Neck Exam: Neck Supple, Trachea Midline Pulmonary Resp Exam: No Distress, Decreased Bases Cardiology CV Exam: Regular, Good Perfusion Gastrointestinal/Abdomen GI Exam: Soft, Positive Bowel Movement, Non-Distended, Bowel Sounds Hypoactive GI Remarks Diffuse tenderness Musculoskeletal MS Exam: Joints Intact Integumentary Skin Exam: Warm, Dry Neurologic Neuro Exam: Alert, Awake, Oriented, Speech Clear, Moving All Extremities, No Focal Deficits Psychiatric Psych Exam: Appropriate Responses VTE Prophylaxis VTE Prophylaxis Device: SCDs Assessment/Plan Problem List: (1) Ischemic colitis (2) Sepsis (3) Colitis (4) Hypertension Plan: Uncontrolled (5) Renal insufficiency (6) COPD (chronic obstructive pulmonary disease) (7) Leukocytosis (8) Abdominal pain (9) Renal artery stenosis (10) Uncontrolled hypertension Assessment/Plan Continue with empiric antibiotics-Cipro, Azactam, Flagyl C. difficile negative, stool cultures negative. Continue with by mouth steroids prednisone 40 mg by mouth daily Appreciate GI input Status post colonoscopy 12/10-findings of diverticulosis, ischemic colitis, gastritis. Biopsy pending. Recommends no NSAIDs, no aspirin. CT of the abdomen done, findings of left renal artery stenosis Blood pressure uncontrolled, continue with Procardia, Lopressor, hydralazine, lisinopril Appreciate nephrology input, has evaluated findings, we'll be discussing with IR for possible angiogram with renal stent Duo nebs when necessary Tobacco abuse counseling, needs to quit smoking, she is motivated now considering her current diagnosis. Renal function improved follow BMP SCDs for DVT prophylaxis continue with BP control not ready for discharge D/W RN D/W Dr. Garcia D/W pt. and family This patient was seen by myself and , this note is written on his behalf Problem Qualifiers (1) Sepsis: Qualified Code: A41.9 - Sepsis, due to unspecified organism (2) Hypertension: Qualified Code: I10 - Essential hypertension (3) COPD (chronic obstructive pulmonary disease): Qualified Code: J44.9 - Chronic obstructive pulmonary disease, unspecified COPD type (4) Leukocytosis: Qualified Code: D72.829 - Leukocytosis, unspecified type (5) Abdominal pain: Qualified Code: R10.84 - Generalized abdominal pain Fatuma Abel Dec 13, 2016 15:39
--- NOTE | 2016-12-13 18:41 | HHI.NPPN ---
Subjective General Problems: Hypertension History of Present Illness 66-year-old female with a past medical history of hypertension diagnosed three years ago, history of recurrent uncontrolled hypertension, COPD with chronic smoking who was admitted because of nausea, vomiting and diarrhea. I was called to see the patient because of uncontrolled hypertension and abnormal abdominal CT which showed that she has possible renal artery stenosis. Additional Remarks Patient is alert, no headache, no dizziness. Review of Systems Cardiovascular Cardiac: SCHWARTZ Objective Data Data 12/12/16 12/13/16 19:00 07:00 Intake Total 480 ml 480 ml Output Total 1400 ml 1950 ml Balance -920 ml -1470 ml Intake Oral 480 ml 480 ml Output Urine Total 1400 ml 1950 ml # Bowel Movements 0 0 Vital Signs Date Time Temp Pulse Resp B/P Pulse Ox O2 Delivery O2 Flow Rate FiO2 12/13/16 16:00 98.4 91 20 156/85 94 12/13/16 13:40 74 17 /115 98 12/13/16 12:00 99.5 74 20 220/102 95 12/13/16 08:09 95 21 12/13/16 08:00 97.6 80 20 197/93 95 12/13/16 04:52 96.8 76 18 161/74 95 12/13/16 00:50 97.2 80 18 160/72 95 12/12/16 20:30 99.2 82 16 156/77 95 -: 12/11/16 0652 12/12/16 0730 Physical Exam General Appearance: No Acute Distress, Comfortable Eyes Eye Exam: Pupils Equal, Pupils Reactive Ears & Nose Ears & Nose Exam: Nasal Mucosa [place] Throat Throat Exam: Oral Mucosa [place] & Moist Neck Neck Exam: Neck Supple, Trachea Midline Pulmonary Resp Exam: No Distress, Decreased Bases Cardiology CV Exam: Regular, Good Perfusion Gastrointestinal/Abdomen GI Exam: Soft, Positive Bowel Movement, Non-Distended, Bowel Sounds Hypoactive Musculoskeletal MS Exam: Joints Intact Integumentary Skin Exam: Warm, Dry Extremeties Extremities Exam: No Edema Neurologic Neuro Exam: Alert, Awake, Oriented, Speech Clear Psychiatric Psych Exam: Appropriate Responses VTE Prophylaxis Device: SCDs Assessment/Plan Assessment Summary: Acute Tubular Necrosis, Hypertension, CKD Stage III Problem List: (1) Colitis (2) Chronic obstructive pulmonary disease with acute exacerbation (3) Renal insufficiency (4) Abdominal pain (5) Uncontrolled hypertension (6) Ischemic colitis (7) Renal artery stenosis Plan Patient still has elevated BP. Nifedipine increased to BID. Has left MARSHA, discussed with the patient in detail about angioplasty and possible complication, including renal failure. She want to proceed with it. I will try to get it done by tomorrow AM. Problem Qualifiers (1) Abdominal pain: Qualified Code: R10.84 - Generalized abdominal pain Dino Pang MD Dec 13, 2016 18:41
[2016-12-13] MEDS: METOPROLOL TARTRATE 25 MG TAB PO SCH (20:56)
[2016-12-13] MEDS: MORPHINE SULFATE 4 MG/ML INJ IV PRN (23:54)
[2016-12-14] VITALS (14 sets, daily range): BP systolic 144–205; BP diastolic 79–105; PULSE 58–78; RESP 16–18; TEMP 97–99.4; O2SAT 92–99
[2016-12-14] MEDS: hydrALAZINE HCL 50 MG TAB PO PRN ×2 (04:39→18:41)
[2016-12-14] MEDS: SODIUM CHLOR 0.9% 1000 ML INJ 1,000 ML IV SCH (04:42)
[2016-12-14] MEDS: hydrALAZINE HCL 50 MG TAB PO SCH ×3 (06:00→22:05)
[2016-12-14] MEDS: predniSONE 20 MG TAB PO SCH (08:07)
[2016-12-14] MEDS: CIPROFLOXACIN 500 MG TAB PO SCH ×2 (08:07→22:00)
[2016-12-14] MEDS: NIFEdipine 60 MG SUSTAINED RELEASE TAB PO SCH ×2 (08:07→22:00)
[2016-12-14] MEDS: LISINOPRIL 20 MG TAB PO SCH ×2 (08:07→22:00)
[2016-12-14] MEDS: METOPROLOL TARTRATE 25 MG TAB PO SCH ×2 (08:13→22:00)
[2016-12-14] MEDS: metroNIDAZOLE 500 MG INJ 100 ML IV SCH ×2 (08:15→16:00)
[2016-12-14] MEDS: SODIUM CHLORIDE 0.9% FLUSH 10 ML FLUSH IV FLUSH SCH ×2 (08:21→21:59)
[2016-12-14 08:47] LABS: POTASSIUM 3.5 MEQ/L (3.5-5.1)
[2016-12-14] MEDS: AZTREONAM INJ 1,000 MG in SODIUM CHLORIDE 0.9% INJ 100 ML IV SCH ×2 (10:17→22:05)
[2016-12-14 10:26] LABS: APTT (PATIENT) 26.2 SEC (24.3-30.1); INTERNATIONAL NORMALIZED RATIO 0.9 RATIO; PROTHROMBIN TIME - PATIENT 10.3 SEC (9.8-11.6)
[2016-12-14] MEDS ORDERED: fentaNYL CITRATE 250 MCG/5 ML AMP ONE (12:42)
[2016-12-14] MEDS ORDERED: MIDAZOLAM HCL 5 MG/5 ML VIAL ONE (12:42)
[2016-12-14] MEDS ORDERED: ZOLPIDEM TARTRATE 5 MG TAB PO PRN (13:00)
--- NOTE | 2016-12-14 13:19 | HHI.PR ---
Subjective Subjective Remarks minimal abd. pain no n/v appetite improving no cp no sob no BM BP better but still not optimal, 160-170s no fever motivated to quit smoking requesting sleeping pill Review of Systems Constitutional Constitutional Remarks 12 point review of systems completed, negative except as noted above Vitals/Results Intake & Output 12/13/16 12/13/16 12/14/16 15:00 23:00 07:00 Intake Total 360 ml 640 ml 310 ml Output Total 1200 ml 300 ml 450 ml Balance -840 ml 340 ml -140 ml Intake Oral 360 ml 240 ml IV Total 400 ml 310 ml Output Urine Total 1200 ml 300 ml 450 ml # Bowel Movements 0 0 0 Vital Signs Vital Signs Date Time Temp Pulse Resp B/P Pulse Ox O2 Delivery O2 Flow Rate FiO2 12/14/16 09:37 95 12/14/16 08:00 98.0 67 16 165/79 94 12/14/16 04:25 97.0 70 17 171/87 95 12/14/16 00:25 97.2 72 17 162/81 94 12/13/16 21:20 94 Room Air 12/13/16 20:25 98.5 85 17 162/86 94 12/13/16 20:23 95 21 12/13/16 16:00 98.4 91 20 156/85 94 12/13/16 13:40 74 17 /115 98 CBC/BMP: 12/11/16 0652 12/14/16 0740 Lab Results Laboratory Tests Test 12/14/16 12/14/16 07:40 10:04 Sodium Level 136 MEQ/L Potassium Level 3.5 MEQ/L Chloride Level 102 MEQ/L Carbon Dioxide Level 27.0 MEQ/L Anion Gap 7 MEQ/L Blood Urea Nitrogen 28 MG/DL Creatinine 1.08 MG/DL Estimat Glomerular Filtration 51 ML/MIN Rate Random Glucose 98 MG/DL Calcium Level 9.0 MG/DL Prothrombin Time 10.3 SEC Prothromb Time International 0.9 RATIO Ratio Activated Partial 26.2 SEC Thromboplast Time Physical Exam General General Appearance: No Acute Distress, Comfortable Eyes Eye Exam: Pupils Equal, Pupils Reactive Ears & Nose Ears & Nose Exam: Nasal Mucosa [place] Throat Throat Exam: Oral Mucosa [place] & Moist Neck Neck Exam: Neck Supple, Trachea Midline Pulmonary Resp Exam: No Distress, Decreased Bases Cardiology CV Exam: Regular, Good Perfusion Gastrointestinal/Abdomen GI Exam: Soft, Positive Bowel Movement, Non-Distended, Bowel Sounds Hypoactive GI Remarks Diffuse tenderness Musculoskeletal MS Exam: Joints Intact Integumentary Skin Exam: Warm, Dry Extremeties Extremities Exam: No Edema Neurologic Neuro Exam: Alert, Awake, Oriented, Speech Clear Psychiatric Psych Exam: Appropriate Responses VTE Prophylaxis VTE Prophylaxis Device: SCDs Assessment/Plan Problem List: (1) Ischemic colitis (2) Sepsis (3) Colitis (4) Hypertension Plan: Uncontrolled (5) Renal insufficiency (6) COPD (chronic obstructive pulmonary disease) (7) Leukocytosis (8) Abdominal pain (9) Renal artery stenosis (10) Uncontrolled hypertension Assessment/Plan Continue with empiric antibiotics-Cipro, Azactam, Flagyl C. difficile negative, stool cultures negative. Continue with by mouth steroids prednisone 40 mg by mouth daily Appreciate GI input Status post colonoscopy 12/10-findings of diverticulosis, ischemic colitis, gastritis. Biopsy pending. Recommends no NSAIDs, no aspirin. CT of the abdomen done, findings of left renal artery stenosis Blood pressure uncontrolled, continue with Procardia, Lopressor, hydralazine, lisinopril Appreciate nephrology input going to IR for renal art. angio and poss. stent Duo nebs when necessary Tobacco abuse counseling, needs to quit smoking, she is motivated now considering her current diagnosis. Renal function improved follow BMP SCDs for DVT prophylaxis continue with BP control add Ambien PRN going to IR today hopefully home in the next 2 days when BP better controlled. D/W RN D/W Dr. Garcia D/W pt. This patient was seen by myself and , this note is written on his behalf Problem Qualifiers (1) Sepsis: Qualified Code: A41.9 - Sepsis, due to unspecified organism (2) Hypertension: Qualified Code: I10 - Essential hypertension (3) COPD (chronic obstructive pulmonary disease): Qualified Code: J44.9 - Chronic obstructive pulmonary disease, unspecified COPD type (4) Leukocytosis: Qualified Code: D72.829 - Leukocytosis, unspecified type (5) Abdominal pain: Qualified Code: R10.84 - Generalized abdominal pain Fatuma Abel Dec 14, 2016 13:19
[2016-12-14] MEDS ORDERED: NITROGLYCERIN 1000 MCG/5 ML VIAL OTHER ONE (13:45)
--- NOTE | 2016-12-14 14:16 | PD.RAD ---
Post Procedure Progress Note Pre Procedure Diagnosis: (1) Hypertension (2) Renal artery stenosis (3) Uncontrolled hypertension Post Procedure Diagnosis: (1) Hypertension (2) Renal artery stenosis (3) Uncontrolled hypertension Procedure Date: Dec 14, 2016 Supervising Radiologist: Cali Rubio Proceduralist/Assist: Pedro Luis Bacon, RT(R), Vanessa Luke RT(R)() Anesthesia: Local, Conscious Sedation Plan of Activity Patient to Unit: ROPU Patient Condition: Good See PACS Report for procedural detail/treatment Vascular-Arterial Procedure Procedure 1 Procedure Site: Bilateral Renal Procedure(s): Angiogram, Angioplasty, Stent Placement Access Access Site(s): Right Femoral Artery Closure Site(s): Right vascular closure device Findings: High grade Lt renal artery stenosis. No significant Rt renal artery stenosis. Treament Area: Lt renal artery SENIOR TECHNICAL ANALYST and Stenting with good result. Plan Start clopidogrel: 300 mg today followed by 75 mg daily Cali Rubio MD Dec 14, 2016 14:16
[2016-12-14] MEDS ORDERED: SODIUM CHLORIDE 0.9% INJ 10 ML ONE (14:21)
[2016-12-14] MEDS ORDERED: CLOPIDOGREL 75 MG TAB PO ONE (14:30)
[2016-12-14] MEDS ORDERED: IODIXANOL 320 MG/ML 50 ML VIAL (for RAD SPEC) I-ARTERIAL ONE (14:37)
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
[2016-12-14] MEDS ORDERED: CLOPIDOGREL 300 MG TAB PO ONE (16:00)
[2016-12-14] MEDS: ONDANSETRON HCL 4 MG/2 ML VIAL IVP PRN (17:10)
--- NOTE | 2016-12-14 19:06 | HHI.NPPN ---
Subjective General Problems: Hypertension History of Present Illness 66-year-old female with a past medical history of hypertension diagnosed three years ago, history of recurrent uncontrolled hypertension, COPD with chronic smoking who was admitted because of nausea, vomiting and diarrhea. I was called to see the patient because of uncontrolled hypertension and abnormal abdominal CT which showed that she has possible renal artery stenosis. Additional Remarks Patient is alert, angioplasty done, no complain. Review of Systems Cardiovascular Cardiac: SCHWARTZ Objective Data Data 12/13/16 12/14/16 19:00 07:00 Intake Total 760 ml 550 ml Output Total 1200 ml 750 ml Balance -440 ml -200 ml Intake Oral 360 ml 240 ml IV Total 400 ml 310 ml Output Urine Total 1200 ml 750 ml # Bowel Movements 0 0 Vital Signs Date Time Temp Pulse Resp B/P Pulse Ox O2 Delivery O2 Flow Rate FiO2 12/14/16 17:10 68 18 173/86 92 12/14/16 16:40 72 18 166/88 94 12/14/16 16:10 64 18 157/82 93 12/14/16 15:40 65 18 158/85 97 12/14/16 15:10 61 18 180/85 98 12/14/16 14:40 58 18 185/87 99 12/14/16 14:25 97.7 61 18 176/92 96 12/14/16 09:37 95 12/14/16 08:00 98.0 67 16 165/79 94 12/14/16 04:25 97.0 70 17 171/87 95 12/14/16 00:25 97.2 72 17 162/81 94 12/13/16 21:20 94 Room Air 12/13/16 20:25 98.5 85 17 162/86 94 12/13/16 20:23 95 21 -: 12/11/16 0652 12/14/16 0740 Physical Exam General Appearance: No Acute Distress, Comfortable Eyes Eye Exam: Pupils Equal, Pupils Reactive Ears & Nose Ears & Nose Exam: Nasal Mucosa [place] Throat Throat Exam: Oral Mucosa [place] & Moist Neck Neck Exam: Neck Supple, Trachea Midline Pulmonary Resp Exam: No Distress, Decreased Bases Cardiology CV Exam: Regular, Good Perfusion Gastrointestinal/Abdomen GI Exam: Soft, Positive Bowel Movement, Non-Distended, Bowel Sounds Hypoactive Musculoskeletal MS Exam: Joints Intact Integumentary Skin Exam: Warm, Dry Extremeties Extremities Exam: No Edema Neurologic Neuro Exam: Alert, Awake, Oriented, Speech Clear Psychiatric Psych Exam: Appropriate Responses VTE Prophylaxis Device: SCDs Assessment/Plan Assessment Summary: Acute Tubular Necrosis, Hypertension, CKD Stage III Problem List: (1) Colitis (2) Chronic obstructive pulmonary disease with acute exacerbation (3) Renal insufficiency (4) Abdominal pain (5) Uncontrolled hypertension (6) Ischemic colitis (7) Renal artery stenosis Plan Patient has left MARSHA, discussed with the patient in detail about angioplasty, now she has the angioplasty done. Tolerated well. Follow the BP and BMP. Problem Qualifiers (1) Abdominal pain: Qualified Code: R10.84 - Generalized abdominal pain iDno Pang MD Dec 14, 2016 19:06 Dino Pang MD Dec 14, 2016 19:06
[2016-12-14] MEDS: POTASSIUM CHLORIDE 20 MEQ CONTROLLED RELEASE TAB PO SCH (22:00)
[2016-12-14] MEDS: MORPHINE SULFATE 4 MG/ML INJ IV PRN (22:06)
[2016-12-15] VITALS (10 sets, daily range): BP systolic 92–180; BP diastolic 60–96; PULSE 54–75; RESP 16–20; TEMP 96.5–98; O2SAT 94–98
[2016-12-15] MEDS: metroNIDAZOLE 500 MG INJ 100 ML IV SCH ×3 (00:12→15:13)
[2016-12-15] MEDS: cloNIDine HCL 0.1 MG TAB PO PRN (00:16)
[2016-12-15] MEDS: SODIUM CHLOR 0.9% 1000 ML INJ 1,000 ML IV SCH ×2 (02:47→22:30)
[2016-12-15] MEDS: hydrALAZINE HCL 50 MG TAB PO SCH ×3 (06:00→22:00)
[2016-12-15] MEDS: POTASSIUM CHLORIDE 20 MEQ CONTROLLED RELEASE TAB PO SCH ×2 (08:33→22:28)
[2016-12-15] MEDS: CLOPIDOGREL 75 MG TAB PO SCH (08:34)
[2016-12-15] MEDS: CIPROFLOXACIN 500 MG TAB PO SCH ×2 (08:34→22:28)
[2016-12-15] MEDS: predniSONE 20 MG TAB PO SCH (08:34)
[2016-12-15] MEDS: AZTREONAM INJ 1,000 MG in SODIUM CHLORIDE 0.9% INJ 100 ML IV SCH ×2 (08:35→22:27)
[2016-12-15] MEDS: SODIUM CHLORIDE 0.9% FLUSH 10 ML FLUSH IV FLUSH SCH ×2 (08:40→22:29)
[2016-12-15] MEDS: METOPROLOL TARTRATE 25 MG TAB PO SCH ×2 (08:43→21:00)
[2016-12-15] MEDS: LISINOPRIL 20 MG TAB PO SCH ×2 (08:44→21:00)
[2016-12-15] MEDS: NIFEdipine 60 MG SUSTAINED RELEASE TAB PO SCH (08:44)
[2016-12-15] MEDS: RESP: ALBUTEROL 2.5 MG/IPRATROPIUM 0.5 MG NEB (PRN) NEB (09:09)
--- NOTE | 2016-12-15 12:10 | HHI.PR ---
Subjective Subjective Remarks Resting in bed Alert, oriented, better spirits Feeling better today Appetite improving Afebrile (Vera Sanon) Review of Systems Constitutional Constitutional: Weakness (generalized but improving) Constitutional Remarks 10 point ROS done positives noted, left renal artery stent done yesterday ( Vera Sanon) GI/Abdomen GI/Abdominal Exam: Constipation (resolved, BM's 2 now) (Vera Sanon) Musculoskeletal MS: Weakness, Stiffness (improving) (Vera Sanon) Psychiatric Psychiatric: Normal Mood, Anxiety (Vera Sanon) Vitals/Results Intake & Output 12/14/16 12/14/16 12/15/16 15:00 23:00 07:00 Intake Total 210 ml 120 ml Output Total 1000 ml 375 ml 584 ml Balance -1000 ml -165 ml -464 ml Intake Oral 120 ml IV Total 210 ml Output Urine Total 1000 ml 375 ml 584 ml # Bowel Movements 0 1 Vital Signs Vital Signs Date Time Temp Pulse Resp B/P Pulse Ox O2 Delivery O2 Flow Rate FiO2 12/15/16 09:09 95 21 12/15/16 08:00 97.4 61 18 104/60 96 12/15/16 05:55 97.1 54 18 130/80 95 12/15/16 04:10 98.0 71 19 94/63 95 12/15/16 01:15 130/73 12/15/16 00:30 97.0 68 20 180/96 94 12/14/16 22:06 98.8 75 18 144/82 96 12/14/16 22:02 92 21 12/14/16 20:00 96 Room Air 12/14/16 17:10 68 18 173/86 92 12/14/16 16:40 72 18 166/88 94 12/14/16 16:10 64 18 157/82 93 12/14/16 16:00 99.4 78 16 205/105 97 12/14/16 15:40 65 18 158/85 97 12/14/16 15:10 61 18 180/85 98 12/14/16 14:40 58 18 185/87 99 12/14/16 14:25 97.7 61 18 176/92 96 (Vera Sanon) CBC/BMP: 12/11/16 0652 12/14/16 0740 Imaging Remarks Last Impressions Renal Arteriogram 12/14/16 0000 Signed Impressions: Service Date/Time: Wednesday, December 14, 2016 13:55 - CONCLUSION: Abdominal aortogram and selective left renal arteriogram demonstrates a high grade 95%% stenosis of the proximal left renal artery. Initial treatment with angioplasty was suboptimal. Vessel is widely patent status post stenting as described above. Patient tolerated procedure well and there were no acute complications. Cali Rubio MD Abdomen/Pelvis CT 12/12/16 0000 Signed Impressions: Service Date/Time: Monday, December 12, 2016 11:10 - CONCLUSION: 1. Mild atherosclerotic vascular disease as described above. I do not see a significant flow-limiting stenosis; however, there is some mesenteric collateralization suggesting there is a small vessel ischemic disease evident. 2. Focal stenosis origin of the left renal artery is thought to be hemodynamically significant. 3. There is no evidence for abdominal aortic aneurysm. Carlos Henning MD FACR Chest X-Ray 12/08/162150 Signed Impressions: Service Date/Time: Thursday, December 08, 2016 21:57 - CONCLUSION: 1. No active disease. Capsular calcifications around breast implants. Adan Carbajal MD Current Medications Administered Medications Medications (Trade) Dose Ordered Sig/Dilcia Route PRN Reason Start Time Stop Time Status Last Admin Dose Admin Sodium Chloride (NS 1000 ml Inj) 1,000 ml @ 50 mls/hr Q20H IV 12/08/16 23:41 12/14/16 04:42 Sodium Chloride (NS Flush) 2 ml UNSCH PRN IV FLUSH FLUSH AFTER USING IV ACCESS 12/08/16 23:45 12/11/16 15:54 Sodium Chloride (NS Flush) 2 ml BID IV FLUSH 12/09/16 09:00 12/14/16 21:59 Ondansetron HCl (Zofran Inj) 4 mg Q6H PRN IVP NAUSEA OR VOMITING 12/08/16 23:45 12/14/16 17:10 Heparin Sodium (Porcine) 5000 units 5,000 units Q12H SQ 12/08/16 23:45 Hold 12/09/16 13:38 Aztreonam 1000 mg/ Sodium Chloride 100 ml @ 200 mls/hr Q12H IV 12/09/16 10:00 12/15/16 08:35 Metronidazole (Flagyl 500 Mg Inj) 100 ml @ 100 mls/hr Q8H IV 12/09/16 08:00 12/15/16 08:37 Clonidine (Catapres) 0.1 mg Q6H PRN PO SBP>160, DBP>90 12/09/16 00:00 12/15/16 00:16 Morphine Sulfate (Morphine Inj) 2 mg Q4H PRN IV SEVERE PAIN 12/09/16 01:30 12/14/16 22:06 Lisinopril (Prinivil) 20 mg BID PO 12/09/16 09:00 12/14/16 22:00 Prednisone (Deltasone) 40 mg DAILY PO 12/09/16 09:00 12/15/16 08:34 Hydralazine HCl (Apresoline) 50 mg Q4HR PRN PO SBP>160, DBP>90 12/09/16 12:45 12/14/16 18:41 Ciprofloxacin (Cipro) 500 mg Q12HR PO 12/09/16 21:00 12/15/16 08:34 Enalaprilat (Vasotec Inj) 1.25 mg Q6H PRN IV PUSH SBP>160, DBP>90 12/10/16 14:45 12/13/16 12:22 Nifedipine (Procardia Xl) 60 mg BID PO 12/13/16 21:00 12/14/16 22:00 Hydralazine HCl (Apresoline) 50 mg Q8HR PO 12/13/16 14:00 12/14/16 22:05 Metoprolol Tartrate (Lopressor) 25 mg Q12HR PO 12/13/16 21:00 12/14/16 22:00 Potassium Chloride (KCl) 20 meq Q12HR PO 12/14/16 21:00 12/15/16 08:33 Clopidogrel Bisulfate (Plavix) 75 mg DAILY PO 12/15/16 09:00 12/15/16 08:34 (Vera [place]on) Physical Exam General General Appearance: No Acute Distress, Comfortable (Vera Sanon) Eyes Eye Exam: Pupils Equal, Pupils Reactive (Vera Sanon) Ears & Nose Ears & Nose Exam: Nasal Mucosa [place] ([place] M. HITTING COACH) Throat Throat Exam: Oral Mucosa [place] & Moist ([place] M. HITTING COACH) Neck Neck Exam: Neck Supple, Trachea Midline ([place] M. HITTING COACH) Pulmonary Resp Exam: No Distress, Decreased Bases ([place]era M. HITTING COACH) Cardiology CV Exam: Regular, Good Perfusion ([place]Vera M. HITTING COACH) Gastrointestinal/Abdomen GI Exam: Soft, Positive Bowel Movement, Non-Distended, Bowel Sounds Hypoactive ([place],Vera M. HITTING COACH) Musculoskeletal MS Exam: Joints Intact ([place],Vera M. HITTING COACH) Integumentary Skin Exam: Warm, Dry ([place],Vera M. HITTING COACH) Extremeties Extremities Exam: No Edema ([place],Vera M. HITTING COACH) Neurologic Neuro Exam: Alert, Awake, Oriented, Speech Clear ([place],Vera M. HITTING COACH) Psychiatric Psych Exam: Appropriate Responses ([place] M. HITT[place] CO[place]) VTE Prophylaxis VTE Prophylaxis Device: SCDs ([place] M. HITTING COACH) Assessment/Plan Problem List: (1) Ischemic colitis (2) Sepsis (3) Colitis (4) Hypertension Plan: Uncontrolled (5) Renal insufficiency (6) COPD (chronic obstructive pulmonary disease) (7) Leukocytosis (8) Abdominal pain (9) Renal artery stenosis (10) Uncontrolled hypertension Assessment/Plan Vital signs reviewed, normal ranges, afebrile Labs reviewed, acute kidney injury still remains, Leukocytosis trending down at 12.4 Continue with antibiotics-Cipro, Azactam, Flagyl C. difficile negative, stool cultures negative. By mouth steroids Appreciate GI input Status post colonoscopy 12/10-findings of diverticulosis, ischemic colitis, gastritis. Biopsy pending. Recommends no NSAIDs, no aspirin. CT of the abdomen done, findings of left renal artery stenosis Blood pressure uncontrolled, continue with Procardia, Lopressor, hydralazine, lisinopril Appreciate nephrology input Left renal artery stent done on 421, patient tolerated well Duo nebs when necessary Tobacco abuse counseling, needs to quit smoking, she is motivated now considering her current diagnosis. Supportive care for lifestyle changes SCDs for DVT prophylaxis Discharge planning in the next day or 2. Will recheck BMP in the morning, 2 eval B UN and creatinine D/W RN D/W Dr. Garcia, seen on his behalf D/W pt. (Vera Sanon) Assessment/Plan seen, examined by myself, Dr Garcia, today Discussed with patient Blood pressure much better after renal artery stenting Reduce antihypertensive medication dosages Discontinue Davis catheter Possible home tomorrow Discussed with mid level provider The exam, history, and the medical decision-making described in the above note were completed with the assistance of the mid-level provider. I reviewed the findings presented. I attest that I had a [id number] encounter with the patient on the same day, and personally performed and documented my assessment and findings in the medical record. (Rita Garcia MD) Problem Qualifiers (1) Sepsis: Qualified Code: A41.9 - Sepsis, due to unspecified organism (2) Hypertension: Qualified Code: I10 - Essential hypertension (3) COPD (chronic obstructive pulmonary disease): Qualified Code: J44.9 - Chronic obstructive pulmonary disease, unspecified COPD type (4) Leukocytosis: Qualified Code: D72.829 - Leukocytosis, unspecified type (5) Abdominal pain: Qualified Code: R10.84 - Generalized abdominal pain Vera Sanon Dec 15, 2016 12:10 Rita Garcia MD Dec 15, 2016 17:41
--- NOTE | 2016-12-15 12:57 | HHI.NPPN ---
Subjective General Problems: Hypertension History of Present Illness 66-year-old female with a past medical history of hypertension diagnosed three years ago, history of recurrent uncontrolled hypertension, COPD with chronic smoking who was admitted because of nausea, vomiting and diarrhea. I was called to see the patient because of uncontrolled hypertension and abnormal abdominal CT which showed that she has possible renal artery stenosis. Additional Remarks Patient is alert, has significant drop in the BP, and was dizzy getting up. Review of Systems Cardiovascular Cardiac: SCHWARTZ Objective Data Data 12/14/16 12/15/16 19:00 07:00 Intake Total 330 ml Output Total 1000 ml 959 ml Balance -1000 ml -629 ml Intake Oral 120 ml IV Total 210 ml Output Urine Total 1000 ml 959 ml # Bowel Movements 0 1 Vital Signs Date Time Temp Pulse Resp B/P Pulse Ox O2 Delivery O2 Flow Rate FiO2 12/15/16 09:09 95 21 12/15/16 08:00 97.4 61 18 104/60 96 12/15/16 05:55 97.1 54 18 130/80 95 12/15/16 04:10 98.0 71 19 94/63 95 12/15/16 01:15 130/73 12/15/16 00:30 97.0 68 20 180/96 94 12/14/16 22:06 98.8 75 18 144/82 96 12/14/16 22:02 92 21 12/14/16 20:00 96 Room Air 12/14/16 17:10 68 18 173/86 92 12/14/16 16:40 72 18 166/88 94 12/14/16 16:10 64 18 157/82 93 12/14/16 16:00 99.4 78 16 205/105 97 12/14/16 15:40 65 18 158/85 97 12/14/16 15:10 61 18 180/85 98 12/14/16 14:40 58 18 185/87 99 12/14/16 14:25 97.7 61 18 176/92 96 -: 12/11/16 0652 12/14/16 0740 Physical Exam General Appearance: No Acute Distress, Comfortable Eyes Eye Exam: Pupils Equal, Pupils Reactive Ears & Nose Ears & Nose Exam: Nasal Mucosa [place] Th[place]at Throat Exam: Oral Mucosa [place] & Moist Neck Neck Exam: Neck Supple, Trachea Midline Pulmonary Resp Exam: No Distress, Decreased Bases Cardiology CV Exam: Regular, Good Perfusion Gastrointestinal/Abdomen GI Exam: Soft, Positive Bowel Movement, Non-Distended, Bowel Sounds Hypoactive Musculoskeletal MS Exam: Joints Intact Integumentary Skin Exam: Warm, Dry Extremeties Extremities Exam: No Edema Neurologic Neuro Exam: Alert, Awake, Oriented, Speech Clear Psychiatric Psych Exam: Appropriate Responses VTE Prophylaxis Device: SCDs Assessment/Plan Assessment Summary: Acute Tubular Necrosis, Hypertension, CKD Stage III Problem List: (1) Colitis (2) Chronic obstructive pulmonary disease with acute exacerbation (3) Renal insufficiency (4) Abdominal pain (5) Uncontrolled hypertension (6) Ischemic colitis (7) Renal artery stenosis Plan Patient has left MARSHA, discussed with the patient in detail about angioplasty, now she has the angioplasty done. Tolerated well. Now the BP dropping, all antihypertensives held today. Follow BMP in AM and the BP. Problem Qualifiers (1) Abdominal pain: Qualified Code: R10.84 - Generalized abdominal pain Dino Pang MD Dec 15, 2016 12:57
[2016-12-15] MEDS: MORPHINE SULFATE 4 MG/ML INJ IV PRN (22:45)
[2016-12-16 00:30] VITALS: BP 167/83; PULSE 67; RESP 16; TEMP 96.2; O2SAT 98
[2016-12-16 03:55] VITALS: BP 172/94; PULSE 73; RESP 16; TEMP 96.1; O2SAT 97
[2016-12-16] MEDS: cloNIDine HCL 0.1 MG TAB PO PRN (04:25)
[2016-12-16 06:00] VITALS: BP 129/80
[2016-12-16] MEDS: hydrALAZINE HCL 50 MG TAB PO SCH (06:00)
[2016-12-16 06:02] LABS: BICARBONATE 23.4 MEQ/L (21.0-32.0); POTASSIUM 4.1 MEQ/L (3.5-5.1)
[2016-12-16 08:00] VITALS: BP 148/75; PULSE 73; RESP 18; TEMP 96.6; O2SAT 96
[2016-12-16] MEDS: LISINOPRIL 20 MG TAB PO SCH ×3 (09:00→10:52)
[2016-12-16] MEDS ORDERED: MULTIVITAMIN TAB PO SCH (09:00)
[2016-12-16] MEDS: NIFEdipine 30 MG SUSTAINED RELEASE TAB PO SCH ×3 (09:00→10:52)
[2016-12-16] MEDS: metroNIDAZOLE 500 MG INJ 100 ML IV SCH ×2 (09:19)
[2016-12-16] MEDS: POTASSIUM CHLORIDE 20 MEQ CONTROLLED RELEASE TAB PO SCH (09:19)
[2016-12-16] MEDS: CIPROFLOXACIN 500 MG TAB PO SCH (09:19)
[2016-12-16] MEDS: predniSONE 20 MG TAB PO SCH (09:20)
[2016-12-16] MEDS: CLOPIDOGREL 75 MG TAB PO SCH (09:20)
[2016-12-16] MEDS: SODIUM CHLORIDE 0.9% FLUSH 10 ML FLUSH IV FLUSH SCH (09:21)
[2016-12-16] MEDS: METOPROLOL TARTRATE 25 MG TAB PO SCH (09:21)
[2016-12-16] MEDS: AZTREONAM INJ 1,000 MG in SODIUM CHLORIDE 0.9% INJ 100 ML IV SCH (10:47)
--- NOTE | 2016-12-16 11:01 | HHI.NPPN ---
Subjective General Problems: Hypertension History of Present Illness 66-year-old female with a past medical history of hypertension diagnosed three years ago, history of recurrent uncontrolled hypertension, COPD with chronic smoking who was admitted because of nausea, vomiting and diarrhea. I was called to see the patient because of uncontrolled hypertension and abnormal abdominal CT which showed that she has possible renal artery stenosis. Additional Remarks Patient is alert, feeling better, now has no dizziness. Review of Systems Cardiovascular Cardiac: SCHWARTZ Objective Data Data 12/15/16 12/16/16 19:00 07:00 Intake Total 720 ml 920 ml Output Total 425 ml Balance 295 ml 920 ml Intake Oral 720 ml 920 ml Output Urine Total 425 ml # Voids 3 # Bowel Movements 0 1 Vital Signs Date Time Temp Pulse Resp B/P Pulse Ox O2 Delivery O2 Flow Rate FiO2 12/16/16 08:00 96.6 73 18 148/75 96 12/16/16 06:00 129/80 12/16/16 03:55 96.1 73 16 172/94 97 12/16/16 00:30 96.2 67 16 167/83 98 12/15/16 20:05 96.5 75 16 92/67 96 12/15/16 16:00 97.1 72 18 121/68 95 12/15/16 12:00 97.7 69 18 131/70 98 -: 12/16/16 0454 Physical Exam General Appearance: No Acute Distress, Comfortable Eyes Eye Exam: Pupils Equal, Pupils Reactive Ears & Nose Ears & Nose Exam: Nasal Mucosa [place] Throat Throat Exam: Oral Mucosa [place] & Moist Neck Neck Exam: Neck Supple, Trachea Midline Pulmonary Resp Exam: No Distress, Decreased Bases Cardiology CV Exam: Regular, Good Perfusion Gastrointestinal/Abdomen GI Exam: Soft, Positive Bowel Movement, Non-Distended, Bowel Sounds Hypoactive Musculoskeletal MS Exam: Joints Intact Integumentary Skin Exam: Warm, Dry Extremeties Extremities Exam: No Edema Neurologic Neuro Exam: Alert, Awake, Oriented, Speech Clear Psychiatric Psych Exam: Appropriate Responses VTE Prophylaxis Device: SCDs Assessment/Plan Assessment Summary: Acute Tubular Necrosis, Hypertension, CKD Stage III Problem List: (1) Colitis (2) Chronic obstructive pulmonary disease with acute exacerbation (3) Renal insufficiency (4) Abdominal pain (5) Uncontrolled hypertension (6) Ischemic colitis (7) Renal artery stenosis Plan Patient is post Left renal angioplasty. Tolerated the procedure well. Now the BP is better, got Nifedipine lower dose and Metoprolol. Will D/C Lisinopril and Hydralazine for now. [place] D/C IVF. Creatinine is 1.22, If D/C, will need follow up in 2-3 weeks. Problem Qualifiers (1) Abdominal pain: Qualified Code: R10.84 - Generalized abdominal pain Dino Pang MD Dec 16, 2016 11:01
[2016-12-16 12:00] VITALS: BP 142/67; PULSE 60; RESP 18; TEMP 97.8; O2SAT 98
--- NOTE | 2016-12-16 12:25 | HHI.PR ---
Subjective Subjective Remarks Resting in bed Alert, oriented, better spirits Feeling better today Appetite improving Afebrile Review of Systems Constitutional Constitutional: Weakness (generalized but improving) Constitutional Remarks 10 point ROS done positives noted, left renal artery stent done yesterday GI/Abdomen GI/Abdominal Exam: Constipation (resolved, BM's 2 now) Musculoskeletal MS: Weakness, Stiffness (improving) Psychiatric Psychiatric: Normal Mood, Anxiety Vitals/Results Intake & Output 12/15/16 12/15/16 12/16/16 15:00 23:00 07:00 Intake Total 720 ml 440 ml 480 ml Output Total 425 ml Balance 295 ml 440 ml 480 ml Intake Oral 720 ml 440 ml 480 ml Output Urine Total 425 ml # Voids 1 2 # Bowel Movements 0 0 1 Vital Signs Vital Signs Date Time Temp Pulse Resp B/P Pulse Ox O2 Delivery O2 Flow Rate FiO2 12/16/16 08:00 96.6 73 18 148/75 96 12/16/16 06:00 129/80 12/16/16 03:55 96.1 73 16 172/94 97 12/16/16 00:30 96.2 67 16 167/83 98 12/15/16 20:05 96.5 75 16 92/67 96 12/15/16 16:00 97.1 72 18 121/68 95 CBC/BMP: 12/16/16 0454 Lab Results Laboratory Tests Test 12/16/16 04:54 Sodium Level 137 MEQ/L Potassium Level 4.1 MEQ/L Chloride Level 105 MEQ/L Carbon Dioxide Level 23.4 MEQ/L Anion Gap 9 MEQ/L Blood Urea Nitrogen 23 MG/DL Creatinine 1.22 MG/DL Estimat Glomerular Filtration 44 ML/MIN Rate Random Glucose 119 MG/DL Calcium Level 8.2 MG/DL Physical Exam General General Appearance: No Acute Distress, Comfortable Eyes Eye Exam: Pupils Equal, Pupils Reactive Ears & Nose Ears & Nose Exam: Nasal Mucosa [place] Throat Throat Exam: Oral Mucosa [place] & Moist Neck Neck Exam: Neck Supple, Trachea Midline Pulmonary Resp Exam: No Distress, Decreased Bases Cardiology CV Exam: Regular, Good Perfusion Gastrointestinal/Abdomen GI Exam: Soft, Positive Bowel Movement, Non-Distended, Bowel Sounds Hypoactive Musculoskeletal MS Exam: Joints Intact Integumentary Skin Exam: Warm, Dry Extremeties Extremities Exam: No Edema Neurologic Neuro Exam: Alert, Awake, Oriented, Speech Clear Psychiatric Psych Exam: Appropriate Responses VTE Prophylaxis VTE Prophylaxis Device: SCDs Assessment/Plan Problem List: (1) Ischemic colitis (2) Sepsis (3) Colitis (4) Hypertension Plan: Uncontrolled (5) Renal insufficiency (6) COPD (chronic obstructive pulmonary disease) (7) Leukocytosis (8) Abdominal pain (9) Renal artery stenosis (10) Uncontrolled hypertension Assessment/Plan Vital signs reviewed, normal ranges, afebrile Labs reviewed, acute kidney injury trending improved C. difficile negative, stool cultures negative. By mouth steroids Appreciate GI input Status post colonoscopy 12/10-findings of diverticulosis, ischemic colitis, gastritis. Biopsy pending. Recommends no NSAIDs, no aspirin. SCDs for DVT prophylaxis Patient is post Left renal angioplasty. Tolerated the procedure well. Now the BP is better, got Nifedipine lower dose and Metoprolol. Will D/C Lisinopril and Hydralazine for now. [place] D/C IVF. Creatinine is 1.22, If D/C, will need follow up in 2-3 weeks. Problem Qualifiers (1) Sepsis: Qualified Code: A41.9 - Sepsis, due to unspecified organism (2) Hypertension: Qualified Code: I10 - Essential hypertension (3) COPD (chronic obstructive pulmonary disease): Qualified Code: J44.9 - Chronic obstructive pulmonary disease, unspecified COPD type (4) Leukocytosis: Qualified Code: D72.829 - Leukocytosis, unspecified type (5) Abdominal pain: Qualified Code: R10.84 - Generalized abdominal pain Vera Sanon Dec 16, 2016 12:25
[2016-12-16] MEDS ORDERED: NIFE30TA8 PO (14:25)
[2016-12-16] MEDS ORDERED: PLAV75TA29 PO (14:25)
[2016-12-16] MEDS ORDERED: PRED20 PO (14:25)
[2016-12-16] MEDS ORDERED: METO25TA3 PO (14:25)
--- NOTE | 2016-12-16 17:14 | HHI.DS ---
Discharge Summary Admission Date Dec 08, 2016 at 23:37 Discharge Date: Dec 16, 2016 Admitting Diagnosis colitis Procedures colonoscopy, renal artery stent. Brief History This was a 66-year-old female who presented by ambulance to the emergency department at [facility] last night. She apparently had some back pain for which she received baclofen. She took 2 pills of the baclofen and this was followed by severe abdominal pain that is generalized but more severe in the lower half of her abdomen. The pain was nagging and continuous. it did not change with eating drinking or changing position. She vomited 5 times. She did not have any measured fever. She felt an urge to have a bowel movement but she did not have any. The pain was very severe that she said that she could . Also she complained of severe hot flashes and profuse sweating. Eventually she had a big diarrhea bowel movement. C. difficile was negative but the emergency department. The patient's niece has metastatic colon cancer. She was seen by the undersigned earlier today in room 1618. Her pain is better with the current management. She had already been seen by gastroenterology and plans for endoscopy are in place. CBC/BMP: 12/16/16 0454 Significant Findings Laboratory Tests Test 12/14/16 12/16/16 07:40 04:54 Blood Urea Nitrogen 28 MG/DL (7-18) 23 MG/DL (7-18) Creatinine 1.08 MG/DL 1.22 MG/DL (0.50-1.00) (0.50-1.00) Estimat Glomerular Filtration 51 ML/MIN (>89) 44 ML/MIN (>89) Rate Random Glucose 119 MG/DL (74-106) Calcium Level 8.2 MG/DL (8.5-10.1) Imaging Last Impressions Renal Arteriogram 12/14/16 0000 Signed Impressions: Service Date/Time: Wednesday, December 14, 2016 13:55 - CONCLUSION: Abdominal aortogram and selective left renal arteriogram demonstrates a high grade 95%% stenosis of the proximal left renal artery. Initial treatment with angioplasty was suboptimal. Vessel is widely patent status post stenting as described above. Patient tolerated procedure well and there were no acute complications. Cali Rubio MD Abdomen/Pelvis CT 12/12/16 0000 Signed Impressions: Service Date/Time: Monday, December 12, 2016 11:10 - CONCLUSION: 1. Mild atherosclerotic vascular disease as described above. I do not see a significant flow-limiting stenosis; however, there is some mesenteric collateralization suggesting there is a small vessel ischemic disease evident. 2. Focal stenosis origin of the left renal artery is thought to be hemodynamically significant. 3. There is no evidence for abdominal aortic aneurysm. Carlos Henning MD FACR Chest X-Ray 12/08/16 4601 Signed Impressions: Service Date/Time: Thursday, December 08, 2016 21:57 - CONCLUSION: 1. No active disease. Capsular calcifications around breast implants. Adan Carbajal MD PE at Discharge General Appearance: No Acute Distress, Comfortable Eyes Eye Exam: Pupils Equal, Pupils Reactive Ears & Nose Ears & Nose Exam: Nasal Mucosa [place] Throat Throat Exam: Oral Mucosa [place] & Moist Neck Neck Exam: Neck Supple, Trachea Midline Pulmonary Resp Exam: No Distress, Decreased Bases Cardiology CV Exam: Regular, Good Perfusion Gastrointestinal/Abdomen GI Exam: Soft, Positive Bowel Movement, Non-Distended, Bowel Sounds Hypoactive Musculoskeletal MS Exam: Joints Intact Integumentary Skin Exam: Warm, Dry Extremeties Extremities Exam: No Edema Neurologic Neuro Exam: Alert, Awake, Oriented, Speech Clear Psychiatric Psych Exam: Appropriate Responses VTE Prophylaxis VTE Prophylaxis Device: SCDs Hospital Course These are the diagnosis used to treat patient during hospital stay. (1) Ischemic colitis (2) Sepsis (3) Colitis (4) Hypertension Plan: Uncontrolled (5) Renal insufficiency (6) COPD (chronic obstructive pulmonary disease) (7) Leukocytosis (8) Abdominal pain (9) Renal artery stenosis (10) Uncontrolled hypertension Vital signs were reviewed,daily Labs reviewed, noted and treated were patient's acute kidney injury. Patient continued first 3 days of hospital stay with diffuse abd. pain. Continue with empiric antibiotics-Cipro, Azactam, Flagyl Intially , pt. had diarrhea stools. Checked for C. difficile negative, stool cultures negative. Continue with by mouth steroids prednisone 40 mg by mouth daily Appreciate GI input Status post colonoscopy 12/10-findings of diverticulosis, ischemic colitis, gastritis. Biopsy pending. Recommends no NSAIDs, no aspirin. CT of the abdomen done, findings of left renal artery stenosis Blood pressure uncontrolled, continue with Procardia, Lopressor, hydralazine, lisinopril Appreciate nephrology input going to IR for renal art. angio and poss. stent Abd pain was still present, but was less intense. Patient was anxious during the intial phase, but felt better when she realized there was no cancer. Duo nebs for any SOB were ordered when necessary Tobacco abuse counseling, needs to quit smoking, she is motivated now considering her current diagnosis. SCDs for DVT prophylaxis Patient is post Left renal angioplasty. 24 hrs. Tolerated the procedure well. Now the BP is better, got Nifedipine lower dose and Metoprolol. Will D/C Lisinopril and Hydralazine for now. [place] D/C IVF. Creatinine is 1.22 , If D/C, will need follow up in 2-3 weeks with nephrology On day of discharge, abd pain was gone, pt. had no SOB, HTN was controlled. She could be managed on a OP basis now. F/U with PCP 1-2 weeks. Pt Condition on Discharge: Stable Discharge Disposition: Discharge Home Discharge Instructions DIET: Follow Instructions for: As Tolerated, No Restrictions Additional Diet Instructions: Low-salt No smoking ever Activities you can perform: Weight Bearing as Adi New Medications: Clopidogrel (Plavix) 75 Mg Tab 75 MG PO DAILY renal artery stenosis #30 Ref 11 TAB Metoprolol Tartrate (Metoprolol Tartrate) 25 Mg Tab 25 MG PO Q12HR Blood Pressure Management #60 Ref 6 TAB Nifedipine ER 24 HR (Nifedipine ER 24 HR) 30 Mg Tab 30 MG PO DAILY Blood Pressure Management #30 Ref 6 TAB Prednisone (Prednisone) 20 Mg Tab 10 MG PO DAILY wheezing #10 TAB Continued Medications: Albuterol 18 GM Inh (Ventolin Hfa 18 GM Inh) 90 Mcg/Act Aer 2 PUFF INH Q4-6H May substitute for different brand albuterol inhaler. PRN SHORTNESS OF BREATH #1 INHALER Albuterol Neb (Albuterol Neb) 2.5 Mg/0.5 Ml Neb 2.5 MG NEB TID NEB Note: The Albuterol Sulfate Inhalation Solution is concentrated and must be diluted. Read complete instructions carefully before using. PRN SHORTNESS OF BREATH #90 Ref 0 NEBULE Discontinued Medications: Acetaminophen (Tylenol) 325 Mg Tab 1300 MG PO DAILY PRN PAIN SCALE 1 TO 10 Ref 0 TAB Lisinopril (Lisinopril) 20 Mg Tab 20 MG PO BID #30 Ref 0 TAB Prednisone (Deltasone) 20 Mg Tab 40 MG PO DAILY Days 10 TAB Vera Sanon Dec 16, 2016 17:14
== END 2016-12-16 15:55 | disposition home or self-care (01) | DRG 356 ==
LOC: NEPC 21:22 → NEDA 23:37 → N06B 12-09 00:24
PROVIDERS: ADMIT Specialist; ATTEND Specialist
PROC: 0DB98ZX Excision of Duodenum, Via Natural or Artificial Opening Endoscopic, Diagnostic (ICD-10-PCS; 2016-12-10)
PROC: 0DB68ZX Excision of Stomach, Via Natural or Artificial Opening Endoscopic, Diagnostic (ICD-10-PCS; 2016-12-10)
PROC: 0DBM8ZX Excision of Descending Colon, Via Natural or Artificial Opening Endoscopic, Diagnostic (ICD-10-PCS; 2016-12-10)
PROC: 0DBL8ZX Excision of Transverse Colon, Via Natural or Artificial Opening Endoscopic, Diagnostic (ICD-10-PCS; 2016-12-10)
PROC: 047A3DZ Dilation of Left Renal Artery with Intraluminal Device, Percutaneous Approach (ICD-10-PCS; principal; 2016-12-14)
PROC: B4171ZZ Fluoroscopy of Left Renal Artery using Low Osmolar Contrast (ICD-10-PCS; 2016-12-14)
DX: K55.9 Vascular disorder of intestine, unspecified (principal); A41.9 Sepsis, unspecified organism; N17.0 Acute kidney failure with tubular necrosis; E87.2 Acidosis; I70.1 Atherosclerosis of renal artery; I12.9 Hypertensive chronic kidney disease with stage 1 through stage 4 chronic kidney disease, or unspecified chronic kidney disease; N18.3 Chronic kidney disease, stage 3 (moderate); J44.9 Chronic obstructive pulmonary disease, unspecified; H54.8 Legal blindness, as defined in USA; E87.6 Hypokalemia; E86.0 Dehydration; F12.90 Cannabis use, unspecified, uncomplicated; F17.210 Nicotine dependence, cigarettes, uncomplicated; K29.70 Gastritis, unspecified, without bleeding; K44.9 Diaphragmatic hernia without obstruction or gangrene; K57.30 Diverticulosis of large intestine without perforation or abscess without bleeding; K64.8 Other hemorrhoids; K64.4 Residual hemorrhoidal skin tags; Z80.0 Family history of malignant neoplasm of digestive organs
CPT/HCPCS: 36251; 37236; 51702; 71010; 74174; 74176; 76937; 80048; 80053; 81001; 83605; 83735; 85025; 85027; 85610; 85730; 87040; 87205; 87425; 87493; 87506; 88305; 88312; 94640; 94664; 96361; 96374; 96375; 99152; 99153; C1725; C1769; C1874; C1887; C1894; G0269; J1644; J1940; J2250; J2270; J2405; J3010; J3370; J7030; J7050; J7512; Q9967

== ENCOUNTER 2018-08-17 07:49 | Inpatient (IN) ==
[2018-08-17 08:04] LABS: Baso # (Auto) 0.1 th/mm3 (0.0-0.2); Baso % (Auto) 0.4 % (0.0-2.0); Eos % (Auto) 0.1 % (0.0-4.0); Hematocrit 44.7 % (35.0-46.0); Hemoglobin 14.1 gm/dL (11.6-15.3); Lymph # (Auto) 3.3 th/mm3 (1.0-4.8); Lymph % (Auto) 18.6 % (9.0-44.0); Mean Corpuscular HGB Conc 31.5 % (32.0-36.0); Mean Corpuscular Hemoglobin 28.8 pg (27.0-34.0); Mean Corpuscular Volume 91.3 fL (80.0-100.0); Mean Platelet Volume 9.3 fL (7.0-11.0); Mono # (Auto) 1.1 th/mm3 (0.0-0.9); Mono % (Auto) 6.1 % (0.0-8.0); Neut # (Auto) 13.2 th/mm3 (1.8-7.7); Neut % (Auto) 74.8 % (16.0-70.0); Platelet Count 389 th/mm3 (150-450); Red Blood Count 4.89 mil/mm3 (4.00-5.30); White Blood Count 17.7 th/mm3 (4.0-11.0)
--- NOTE | 2018-08-17 08:06 | ED ---
HPI General Chief complaint: Respiratory Symptoms Stated complaint: SOB Time Seen by Provider: 08/17/18 07:51 Source: patient and EMS Mode of arrival: EMS Limitations: no limitations History of Present Illness HPI narrative: Patient is a 68 year old female who comes in complaining of shortness of breath. She has history of COPD and wears oxygen at home. She does continue to smoke. She says she has been feeling short of breath for 2 days. She denies any chest pain. She has had a cough. She has been using albuterol at home without relief. She denies fever or chills. She says this feels worse than prior episodes. Severity is moderate. Related Data Home Medications Medication Instructions Recorded Confirmed albuterol sulfate 1.25 mg INHALATION QID PRN MDD 4 08/17/18 08/17/18 albuterol sulfate [ProAir HFA] 1 puff INHALATION Q6H PRN 08/17/18 08/17/18 ascorbic acid (vitamin C) [Vitamin 500 mg PO DAILY 08/17/18 08/17/18 C] atorvastatin 10 mg PO QPM 08/17/18 08/17/18 clopidogrel [Plavix] 75 mg PO DAILY 08/17/18 08/17/18 veutohdjyov-uzgirzozw-lijikclq 1 inh INHALATION DAILY 08/17/18 08/17/18 [Trelegy Ellipta] metoprolol tartrate 25 mg PO BID 08/17/18 08/17/18 Allergies Allergy/AdvReac Type Severity Reaction Status Date / Time penicillin G Allergy Severe Hives Verified 08/17/18 08:08 codeine AdvReac Mild nausea Verified 08/17/18 08:08 ? Other unknown meds Allergy Mild UNKNOWN Uncoded 08/17/18 08:08 Review of Systems ROS: all other systems reviewed are negative Constitutional Denies chills and Denies fever(s) ENT Denies dizziness Cardiovascular Denies chest pain Respiratory Reports cough and Reports dyspnea Gastrointestinal Denies nausea and Denies vomiting Musculoskeletal Denies myalgias and Denies arthralgias Integumentary/Breasts Denies sores and Denies wounds Neurologic Denies focal weakness and Denies numbness [facility] Medical History Medical History History of COPD (Acute) History of high cholesterol (Acute) Hx of hysterectomy (Acute) Hx of primary hypertension (Acute) Surgical History Surgical History Hx of heart artery stent (Acute) Social History Social History Substance History: No History of Abuse Second Hand Smoke Exposure: No Smoking Status: Current every day smoker Tobacco Type: Cigarettes How Often Do You Have a Drink Containing Alcohol: Never Recent Travel in [facility] within the Last 8 Weeks: No Recent Out of Country Travel within the Last 8 Weeks: No Exam Narrative Exam Narrative: GENERAL: Awake and alert, in moderate respiratory distress. SKIN: Focused skin assessment warm/dry. HEAD: Atraumatic. Normocephalic. EYES: Pupils equal and round. No scleral icterus. No injection or drainage. ENT: Mucous membranes pink and moist. NECK: Trachea midline. No JVD. CARDIOVASCULAR: Regular rate and rhythm. No murmur appreciated. RESPIRATORY: accessory muscle use. Diffuse wheezing and rhonchi. Breath sounds equal bilaterally. GASTROINTESTINAL: Abdomen soft, non-tender, nondistended. MUSCULOSKELETAL: No obvious deformities. No clubbing. No cyanosis. No edema. NEUROLOGICAL: Awake and alert. No obvious cranial nerve deficits. Motor grossly within normal limits. Normal speech. PSYCHIATRIC: Appropriate mood and affect; insight and judgment normal. Course Initial Documented Vital Signs Pulse Oximetry 93 L 08/17/18 07:51 Last Documented Vital Signs Temperature 97.4 F L 08/17/18 08:12 Pulse Rate 115 H 08/17/18 09:14 Respiratory Rate 20 08/17/18 09:14 Blood Pressure 197/91 H 08/17/18 09:14 Pulse Oximetry 95 08/17/18 09:14 Critical Care Time Critical Care Time: Yes Total Critical Care Time: 35 Attestation: Aggregate critical care time was 35 minutes. Time to perform other separately billable procedures was not included in the critical care time. My time did not include minutes spent treating any other patients simultaneously or on activities that did not directly contribute to the patient's treatment. The services I provided to this patient were to treat and/or prevent clinically significant deterioration that could result in: serious illness or I provided critical care services requiring my management, as noted below: Chart data review, documentation time, medication orders and management, vital sign assessments/reviewing monitor data, ordering and reviewing lab tests, ordering and interpreting/reviewing x-rays and diagnostic studies, care of the patient and discussion of the patient with the admitting physicians. Medical Decision Making MDM Narrative Medical decision making narrative: Patient is a 68-year-old female brought in by rest. Patient is in moderate respiratory distress on arrival, she has very little air movement bilaterally, with some wheezing heard. Patient was given 1 DuoNeb, and albuterol treatment and 125 mg of Solu-Medrol by EMS. She is immediately given 3 DuoNeb's on arrival. Patient continued to exhibit respiratory distress with accessory muscle use and no air movement bilaterally. Decision made to place the patient on BiPAP. Patient covered with antibiotics. She greatly improved on BiPAP. Chest x-ray shows hyperinflation of the lungs. Labs significant for a white blood cell count of 17.7. Patient was hypertensive on arrival, she did not take her blood pressure medication this morning. Given 5 mg of metoprolol. She will be admitted for further management. Medical Screen Exam Complete: Yes Emergency Medical Condition: Yes Differential Diagnosis Differential Diagnosis: COPD versus pneumonia versus bronchitis Medical Records Medical records reviewed: Yes I reviewed the patient's medical records. Lab Data Lab results reviewed: Yes I reviewed the patient's lab results. Result diagrams: 08/17/18 07:50 08/17/18 07:50 Lab Results 08/17/18 08/17/18 08/17/18 Range/Units 07:50 07:50 07:50 CBC w Diff Slide review pending WBC 17.7 H (4.0-11.0) th/mm3 RBC 4.89 (4.00-5.30) mil/mm3 Hgb 14.1 (11.6-15.3) gm/dL Hct 44.7 (35.0-46.0) % MCV 91.3 (80.0-100.0) fL MCH 28.8 (27.0-34.0) pg MCHC 31.5 L (32.0-36.0) % RDW 14.0 (11.6-17.2) % Plt Count 389 (150-450) th/mm3 MPV 9.3 (7.0-11.0) fL Neut % (Auto) 74.8 H (16.0-70.0) % Lymph % (Auto) 18.6 (9.0-44.0) % Walker % (Auto) 6.1 (0.0-8.0) % Eos % (Auto) 0.1 (0.0-4.0) % Baso % (Auto) 0.4 (0.0-2.0) % Neut # (Auto) 13.2 H (1.8-7.7) th/mm3 Lymph # (Auto) 3.3 (1.0-4.8) th/mm3 Walker # (Auto) 1.1 H (0.0-0.9) th/mm3 Eos # (Auto) 0.0 (0.0-0.4) th/mm3 Baso # (Auto) 0.1 (0.0-0.2) th/mm3 WBC Differential . Diff Scan Auto diff confirmed Differential Comment . Platelet Estimate Normal (Normal) Platelet Morphology Normal (Normal) PT 9.7 L (9.8-11.6) sec INR 1.0 Ratio APTT 30.8 (23.4-31.7) sec Sodium 135 L (136-145) meq/L Potassium 3.7 (3.5-5.1) meq/L Chloride 99 (98-107) meq/L Carbon Dioxide 26.4 (21.0-32.0) meq/L Anion Gap 10 (5-15) meq/L BUN 10 (7-18) mg/dL Creatinine 1.20 H (0.50-1.00) mg/dL Estimated GFR 45 L (>89) mL/min Random Glucose 196 H (74-106) mg/dL Lactic Acid (0.4-2.0) mmol/L Calcium 9.0 (8.5-10.1) mg/dL Total Bilirubin 0.5 (0.2-1.0) mg/dL AST 37 (15-37) U/L ALT 40 (10-53) U/L Alkaline Phosphatase 162 H (45-117) U/L Troponin I Less than 0.02 L (0.02-0.05) ng/mL Total Protein 9.3 H (6.4-8.2) g/dL Albumin 3.7 (3.4-5.0) g/dL 08/17/18 Range/Units 07:50 CBC w Diff WBC (4.0-11.0) th/mm3 RBC (4.00-5.30) mil/mm3 Hgb (11.6-15.3) gm/dL Hct (35.0-46.0) % MCV (80.0-100.0) fL MCH (27.0-34.0) pg MCHC (32.0-36.0) % RDW (11.6-17.2) % Plt Count (150-450) th/mm3 MPV (7.0-11.0) fL Neut % (Auto) (16.0-70.0) % Lymph % (Auto) (9.0-44.0) % Walker % (Auto) (0.0-8.0) % Eos % (Auto) (0.0-4.0) % Baso % (Auto) (0.0-2.0) % Neut # (Auto) (1.8-7.7) th/mm3 Lymph # (Auto) (1.0-4.8) th/mm3 Walker # (Auto) (0.0-0.9) th/mm3 Eos # (Auto) (0.0-0.4) th/mm3 Baso # (Auto) (0.0-0.2) th/mm3 WBC Differential Diff Scan Differential Comment Platelet Estimate (Normal) Platelet Morphology (Normal) PT (9.8-11.6) sec INR Ratio APTT (23.4-31.7) sec Sodium (136-145) meq/L Potassium (3.5-5.1) meq/L Chloride (98-107) meq/L Carbon Dioxide (21.0-32.0) meq/L Anion Gap (5-15) meq/L BUN (7-18) mg/dL Creatinine (0.50-1.00) mg/dL Estimated GFR (>89) mL/min Random Glucose (74-106) mg/dL Lactic Acid 1.3 (0.4-2.0) mmol/L Calcium (8.5-10.1) mg/dL Total Bilirubin (0.2-1.0) mg/dL AST (15-37) U/L ALT (10-53) U/L Alkaline Phosphatase (45-117) U/L Troponin I (0.02-0.05) ng/mL Total Protein (6.4-8.2) g/dL Albumin (3.4-5.0) g/dL Imaging Data Radiologist's impression: Chest X-Ray 08/17/18 07:51 CONCLUSION: No acute cardiopulmonary process. Hyperinflated lungs likely from COPD. ECG Data EKG Prior to Arrival: No Attestation: I personally reviewed and interpreted this ECG as follows: Interpretation: ECG shows sinus tachycardia at a rate of 110, large artifact Discharge Plan Discharge Disposition Patient Disposition: ED Admit(ED Internal Use Only) Discharge Condition Condition: Stable Discharge Details Diagnosis: Acute exacerbation of chronic obstructive pulmonary disease (COPD), Acute respiratory distress Physicians Team ED Provider: Barbara Hensley Primary Care Provider: Arian Thurston V Rxs /Orders / Referrals /Forms Prescriptions: No Action ascorbic acid (vitamin C) [Vitamin C] 1,000 mg Tablet 500 mg PO DAILY RF: 0 atorvastatin 10 mg Tablet 10 mg PO QPM RF: 0 albuterol sulfate 1.25 mg/3 mL Solution For Nebulization 1.25 mg INHALATION QID MDD 4 PRN (Reason: Shortness Of Breath Or Wheezing) RF : 0 clopidogrel [Plavix] 75 mg Tablet 75 mg PO DAILY RF: 0 albuterol sulfate [ProAir HFA] 90 mcg/actuation Hfa Aerosol Inhaler 1 puff INHALATION Q6H PRN (Reason: Shortness Of Breath Or Wheezing) RF: 0 metoprolol tartrate 25 mg Tablet 25 mg PO BID RF: 0 wopeojstyqz-wcxlvggso-etuuozwk [Trelegy Ellipta] 100-62.5-25 mcg Blister With Device 1 inh INHALATION DAILY RF: 0 Discharge Interventions Interventions: Vital Signs Last Done: 08/17/18 09:14 Status ED Status: With Doctor
[2018-08-17] MEDS ORDERED: Vancomycin Inj 1,000 MG in Sodium Chlor 0.9% Inj 250 ML IV.SIG ONE (08:32)
[2018-08-17] MEDS ORDERED: Metoprolol Inj 5 MG/5 ML Vial IV.PUSH ONE ×2 (08:32→09:16)
[2018-08-17 08:37] LABS: Chloride 99 meq/L (98-107); Potassium 3.7 meq/L (3.5-5.1); Sodium 135 meq/L (136-145)
[2018-08-17 08:41] LABS: Albumin 3.7 g/dL (3.4-5.0); Anion Gap 10 meq/L (5-15); Blood Urea Nitrogen 10 mg/dL (7-18); Carbon Dioxide 26.4 meq/L (21.0-32.0); Glucose,Random 196 mg/dL (74-106)
[2018-08-17 08:42] LABS: Activated Partial Thrombo Time 30.8 sec (23.4-31.7); Prothrombin Time 9.7 sec (9.8-11.6)
--- NOTE | 2018-08-17 08:42 | XR ---
EXAM DATE: 08/17/2018 8:06 AM EST AGE/SEX: 68 years / Female INDICATIONS: Short of breath CLINICAL DATA: This is the patient's initial encounter. Patient reports that signs and symptoms have been present for 1 day and indicates a pain score of 0/10. MEDICAL/SURGICAL HISTORY: Chronic obstructive pulmonary disease. None. COMPARISON: [facility] [place], 12/08/2016. . FINDINGS: The heart size is normal. The lungs are clear. The lungs do appear hyperinflated. No effusion is seen . The bones are osteopenic. Peripherally calcified breast implants are seen bilaterally. CONCLUSION: No acute cardiopulmonary process. Hyperinflated lungs likely from COPD. Electronically signed by: Yeison Mata MD Board Certified Radiologist 08/17/2018 8:41 AM EST
[2018-08-17 08:44] LABS: Alanine Aminotransferase 40 U/L (10-53); Aspartate Aminotransferase 37 U/L (15-37); Glomerular Filtration Rate 45 mL/min (>89)
[2018-08-17 08:46] LABS: Total Protein 9.3 g/dL (6.4-8.2)
[2018-08-17 08:47] LABS: Alkaline Phosphatase 162 U/L (45-117)
[2018-08-17 09:26] LABS: Platelet Estimate Normal (Normal); Platelet Morphology Normal (Normal)
[2018-08-17 09:41] LABS: ABG PCO2 55 mmHg (38-42); ABG PO2 81 mmHg (61-120)
[2018-08-17] MEDS ORDERED: Bisacodyl 10 MG Supp RECTAL PRN (12:23)
--- NOTE | 2018-08-17 12:34 | P.HPIM ---
History of Present Illness Primary Care Physician: Arian Thurston MD Chief Complaint: Short of breath History of Present Illness: 68 yo F with h/o COPD with chronic hypoxic respiratory failure on home oxygen who presented to ER with 2 day h/o worsening shortness of breath. SOB both at rest and exertion, associated with cough productive of yellowish sputum. Some wheezing. She required to use nebulizers frequently at home but with no relief.No fever or chills. No chest pain. No leg swelling. Her grand children have been sick with cold like symptoms in the past week. Patient continues to smoke cigarettes 1ppd. She received both her flu and pneumonia shots. ROS is negative except as stated above. On presentation to ER, patient was hypertensive, tachycardic,labs- abg-7.2/55, leucocytosis 17k, CXR-in keeping with COPD. Patient received Vanc, Cefepime, Levofloxacin,NEBS. Started on BIPAP /.She is being admitted to the ICU for further management. Inpatient Certification Inpatient Certification: I certify that the inpatient services were ordered in accordance with Medicare regulations governing the order. This includes certification that hospital inpatient services are reasonable and necessary and in the case of services not specified as inpatient-only under 42 CFR 419.22(n), that they are appropriately provided as inpatient services in accordance to with the 2-midnight benchmark under 43 CFR 412.3(e) Estimated Total Length of Stay (Days): 4 Plans for Post Hospital Care: Not yet determined Review of Systems Review of Systems: all other systems reviewed are negative [facility] Medical History Medical History History of COPD (Acute) History of high cholesterol (Acute) Hx of hysterectomy (Acute) Hx of primary hypertension (Acute) Surgical History Surgical History Hx of heart artery stent (Acute) Social History Social History Substance History: No History of Abuse Second Hand Smoke Exposure: No Smoking Status: Current every day smoker Tobacco Type: Cigarettes How Often Do You Have a Drink Containing Alcohol: Never Recent Travel in [facility] within the Last 8 Weeks: No Recent Out of Country Travel within the Last 8 Weeks: No Immunization History Tetanus Immunization: Unsure Medications and Allergies Allergies Allergy/AdvReac Type Severity Reaction Status Date / Time penicillin G Allergy Severe Hives Verified 08/17/18 08:08 codeine AdvReac Mild nausea Verified 08/17/18 08:08 ? Other unknown meds Allergy Mild UNKNOWN Uncoded 08/17/18 08:08 Home Medications Medication Instructions Recorded Confirmed Type albuterol sulfate 1.25 mg INHALATION QID PRN MDD 4 08/17/18 08/17/18 History albuterol sulfate [ProAir HFA] 1 puff INHALATION Q6H PRN 08/17/18 08/17/18 History ascorbic acid (vitamin C) [Vitamin 500 mg PO DAILY 08/17/18 08/17/18 History C] atorvastatin 10 mg PO QPM 08/17/18 08/17/18 History clopidogrel [Plavix] 75 mg PO DAILY 08/17/18 08/17/18 History txybylrnqog-bvkrmfkfm-fgbvktmx 1 inh INHALATION DAILY 08/17/18 08/17/18 History [Trelegy Ellipta] metoprolol tartrate 25 mg PO BID 08/17/18 08/17/18 History Active Medications: Active Medications Al Hydroxide/Mg Hydroxide (Milk Of Magnmanju Liq) 30 ml PO Q12H PRN PRN Reason: Mild Constipation Albuterol (Albuterol Neb (Dilcia)) 2.5 mg NEB Q2HR NEB PRN PRN Reason: SHORTNESS OF BREATH/WHEEZING Albuterol (Duoneb Neb (Prn)) 1 ampul NEB Q4HR NEB DILCIA Atorvastatin Calcium (Lipitor) 10 mg PO QPM DILCIA Bisacodyl (Dulcolax Supp) 10 mg RECTAL DAILY PRN PRN Reason: SEVERE CONSITIPATION Chlorhexidine Gluconate (Chlorhexidine 2% Cloth) 3 pack TOPICAL DAILY@0400 DILCIA Stop: 08/23/18 03:59 Chlorhexidine Gluconate (Chlorhexidine 2% Cloth) 3 pack TOPICAL DAILY@0400 PRN PRN Reason: Extra cloth needed Stop: 08/23/18 03:59 Clopidogrel Bisulfate (Plavix) 75 mg PO DAILY DILCIA Enoxaparin Sodium (Lovenox Inj) 30 mg SQ Q24H DILCIA Famotidine (Pepcid Pf Inj) 20 mg IV.PUSH Q12HR DILCIA Famotidine (Pepcid) 20 mg PO BID DILCIA Azithromycin 250 mg/ Sodium (Chloride) 250 mls @ 250 mls/hr IV.SIG Q24H DILCIA Lactulose (Lactulose Liq) 30 ml PO DAILY PRN PRN Reason: SEVERE CONSITIPATION Non-Formulary Medication (Ascorbic Acid (Vitamin C) [Vitamin C]) 500 mg PO DAILY [facility] Senna/Docusate Sodium (Najma-Colace) 1 tab PO BID [facility] Sennosides (Senokot) 17.2 mg PO Q12H PRN PRN Reason: Moderate Constipation Sodium Chloride (Ns Flush) 2 ml IV.FLUSH BID DILCIA Sodium Chloride (Ns Flush) 2 ml IV.FLUSH PRN PRN PRN Reason: FLUSH AFTER USING IV ACCESS Physical Exam Vital signs: Last Vital Signs Temp 97.4 F L 08/17/18 08:12 Pulse 113 H 08/17/18 11:07 Resp 18 08/17/18 11:07 BP 189/89 H 08/17/18 11:07 Pulse Ox 95 08/17/18 11:57 Intake & Output 08/15/18 08/16/18 08/17/18 08/18/18 06:59 06:59 06:59 06:59 Intake Total 400 / 400 Balance 400 / 400 Weight 48 kg Narrative: GENERAL: elederly woman, cachectic,in respiratory distress. HEENT:not pale,anicteric NECK: no JVD CARDIOVASCULAR: Regular rate and rhythm without murmurs, gallops, or rubs. RESPIRATORY: diminished air entry. No wheezes, rales, or rhonchi. On BIPAP GASTROINTESTINAL: Abdomen soft, non-tender, nondistended. Normal active bowel sounds MUSCULOSKELETAL: Extremities without clubbing, cyanosis, or edema. NEURO: Alert & Oriented x4 to person, place, time, situation. Moves all ext x4 Results Labs CBC & Chem 7: 08/17/18 07:50 08/17/18 07:50 Imaging Impressions Chest X-Ray 08/17/18 07:51 CONCLUSION: No acute cardiopulmonary process. Hyperinflated lungs likely from COPD. Caprini VTE Risk Assessment Caprini VTE Risk Assessment: Moderate/High Risk (score >= 2) Caprini Risk Assessment Model: Point Value = 1 Point Value = 2 Point Value = 3 Point Value = 5 Age 41-60 Minor surgery BMI > 25 kg/m2 Swollen legs Varicose veins or History of unexplained or recurrent spontaneous Oral contraceptives or hormone replacement Sepsis (< 1 month) Serious lung disease, including pneumonia (< 1 month) Abnormal pulmonary function Acute myocardial infarction Congestive heart failure (< 1 month) History of inflammatory bowel disease Medical patient at bed rest Age 61-74 Arthroscopic surgery Major open surgery (> 45 min) Laparoscopic surgery (> 45 min) Malignancy Confined to bed (> 72 hours) Immobilizing plaster cast Central venous access Age >= 75 History of VTE Family history of VTE Factor V Leiden Prothrombin [id number] Lupus anticoagulant Anticardiolipin antibodies Elevated serum homocysteine Heparin-induced thrombocytopenia Other congenital or acquired thrombophilia Stroke (< 1 month) Elective arthroplasty Hip, pelvis, or leg fracture Acute spinal cord injury (< 1 month) Prophylaxis Regimen: Total Risk Factor Score Risk Level Prophylaxis Regimen 0-1 Low Early ambulation 2 Moderate Order ONE of the following: *Sequential Compression Device (SCD) *Heparin 5000 units SQ BID 3-4 Higher Order ONE of the following medications: *Heparin 5000 units SQ TID *Enoxaparin/Lovenox 40 mg SQ daily (WT < 150 kg, CrCl > 30 mL/min) *Enoxaparin/Lovenox 30 mg SQ daily (WT < 150 kg, CrCl > 10-29 mL/min) *Enoxaparin/Lovenox 30 mg SQ BID (WT < 150 kg, CrCl > 30 mL/min) AND/OR *Sequential Compression Device (SCD) 5 or more Highest Order ONE of the following medications: *Heparin 5000 units SQ TID (Preferred with Epidurals) *Enoxaparin/Lovenox 40 mg SQ daily (WT < 150 kg, CrCl > 30 mL/min) *Enoxaparin/Lovenox 30 mg SQ daily (WT < 150 kg, CrCl > 10-29 mL/min) *Enoxaparin/Lovenox 30 mg SQ BID (WT < 150 kg, CrCl > 30 mL/min) AND *Sequential Compression Device (SCD) Assessment and Plan Plan 68 yo F with h/o COPD with chronic hypoxic respiratory failure on home oxygen who presented to ER with 2 day h/o worsening shortness of breath, found to be in COPD exacerbation with acute hypercarbic respiratory failure. Acute hypercarbic respiratory failure COPD exacerbation--likely trigger may be viral since there were sick contacts. -Admit to ICU -Keep on BIPAP, follow abgs and wean accordingly. -DUONEBS Q4H, Albuterol NEBS q2h prn, start IV Solumedrol 40mg q6h -Continue IV Levofloxacin -obtain sputum cultures. -patient counseled on smoking cessation. Hypertensive Urgency- likely in the setting of respiratory distress. keep on Enalapril 1.25 q6h prn DVT prophylaxis-Lovenox GI prophylaxis-Famotidine
[2018-08-17] MEDS: MethylPREDNISolone Sod Succinate Inj 40 MG/ML Vial IV.PUSH SCH ×2 (13:28→19:36)
[2018-08-17] MEDS: Enoxaparin Inj 30 MG/0.3 ML Syringe SQ SCH (13:28)
[2018-08-17 13:33] LABS: ABG Base Excess -1.8 mmol/L (-2-2); ABG PCO2 42 mmHg (38-42); ABG PO2 89 mmHg (61-120)
[2018-08-17] MEDS: Metoprolol Inj 5 MG/5 ML Vial IV.PUSH PRN (19:37)
[2018-08-17] MEDS: Senna/Docusate Sodium 8.6/50 MG Tablet PO SCH (21:37)
[2018-08-17] MEDS: Famotidine PF Inj 20 MG/2 ML Vial IV.PUSH SCH (21:37)
[2018-08-17] MEDS: Metoprolol Tartrate 25 MG Tablet PO SCH (21:37)
[2018-08-17] MEDS: Famotidine 20 MG Tablet PO SCH (21:37)
--- NOTE | 2018-08-18 02:01 | ECG ---
Date Performed: 08/17/2018 Time Performed: 08:12:01 PTAGE: 68 years EKG: SINUS TACHYCARDIA WITH OCCASIONAL SUPRAVENTRICULAR PREMATURE COMPLEXES POSSIBLE RIGHT ATRIA L ENLARGEMENT POSSIBLE LEFT ATRIAL ENLARGEMENT POSSIBLE RIGHT VENTRICULAR CONDUCTION DELAY ST DEPRESS ION, CONSIDER SUBENDOCARDIAL INJURY ABNORMAL ECG PREVIOUS TRACING : 08/20/2016 09.04 Compared to previous tracing, now in sinus tachycardia wit h ST depressions DOCTOR: John Mccall Interpretating Date/Time 08/18/2018 02:00:08
[2018-08-18] MEDS: MethylPREDNISolone Sod Succinate Inj 40 MG/ML Vial IV.PUSH SCH ×4 (02:43→19:42)
[2018-08-18] MEDS ORDERED: Chlorhexidine Gluconate 2% 1 Pack (2 Cloths) TOPICAL PRN (04:00)
[2018-08-18] MEDS: Chlorhexidine Gluconate 2% 1 Pack (2 Cloths) TOPICAL SCH (06:21)
[2018-08-18 06:51] LABS: Baso % (Auto) 0.2 % (0.0-2.0); Eos % (Auto) 0.1 % (0.0-4.0); Hemoglobin 11.8 gm/dL (11.6-15.3); Lymph # (Auto) 0.7 th/mm3 (1.0-4.8); Lymph % (Auto) 6.2 % (9.0-44.0); Mean Corpuscular HGB Conc 32.7 % (32.0-36.0); Mean Corpuscular Hemoglobin 29.7 pg (27.0-34.0); Mean Corpuscular Volume 90.8 fL (80.0-100.0); Mean Platelet Volume 9.6 fL (7.0-11.0); Mono # (Auto) 0.3 th/mm3 (0.0-0.9); Mono % (Auto) 3.1 % (0.0-8.0); Neut % (Auto) 90.4 % (16.0-70.0); Platelet Count 284 th/mm3 (150-450); Red Blood Count 3.96 mil/mm3 (4.00-5.30); Red Cell Distribution Width 13.6 % (11.6-17.2)
[2018-08-18] MEDS: Metoprolol Tartrate 25 MG Tablet PO SCH ×2 (08:05→21:12)
[2018-08-18] MEDS: Senna/Docusate Sodium 8.6/50 MG Tablet PO SCH ×2 (08:05→21:12)
[2018-08-18] MEDS: Famotidine PF Inj 20 MG/2 ML Vial IV.PUSH SCH ×2 (08:05→21:12)
[2018-08-18] MEDS: Ascorbic Acid 500 MG Tablet PO SCH (08:05)
[2018-08-18] MEDS: Famotidine 20 MG Tablet PO SCH ×2 (08:05→21:12)
--- NOTE | 2018-08-18 08:11 | P.PNIM ---
Subjective Interval history: Follow-up for COPD exacerbation On oxygen 2 L at night, overnight here in the hospital, she has been on BiPAP, now feeling better, less tachypneic. Still short of breath, with wheezing. On 2-3 L of oxygen. No fever or chills. Still shaky. No nausea or vomiting, eating breakfast. Physical Exam Vital signs: Last Vital Signs Temp 99.1 F 08/18/18 04:00 Pulse 100 H 08/18/18 06:00 Resp 19 08/18/18 06:00 BP 136/66 08/18/18 06:00 Pulse Ox 98 08/18/18 06:00 Intake & Output 08/16/18 08/17/18 08/18/18 08/19/18 06:59 06:59 06:59 06:59 Intake Total 500 / 500 Balance 500 / 500 Weight 47.7 kg Narrative: GENERAL: Not in distess, cachectic HEENT:not pale,anicteric NECK: no JVD CARDIOVASCULAR: Regular rate and rhythm without murmurs, gallops, or rubs. RESPIRATORY: diminished air entry. No wheezing, off BiPAP, on oxygen via nasal cannula at 3 L. GASTROINTESTINAL: Abdomen soft, non-tender, nondistended. Normal active bowel sounds MUSCULOSKELETAL: Extremities without clubbing, cyanosis, or edema. NEURO: Alert & Oriented x4 to person, place, time, situation. Moves all ext x4 Results Labs CBC & Chem 7: 08/18/18 05:50 08/17/18 07:50 Labs: Microbiology 08/17/18 08:00 Nasal Wash Influenza Types A,B Antigen - Final Negative for FLU A and B antigen Infection due to influenza A or B cannot be ruled out since the antigen present in the sample may be below the detection limit of the test. Imaging Imaging: Impressions Chest X-Ray 08/17/18 07:51 CONCLUSION: No acute cardiopulmonary process. Hyperinflated lungs likely from COPD. Assessment and Plan Plan 68 yo F with h/o COPD with chronic hypoxic respiratory failure on home oxygen who presented to ER with 2 day h/o worsening shortness of breath, found to be in COPD exacerbation with acute hypercarbic respiratory failure. Acute hypercarbic respiratory failure on top of chronic secondary to COPD exacerbation--likely trigger may be viral since there were sick contacts. - leukocytosis resolved. Repeat ABG better. Flu negative, BCx negative. Keep on oxygen support, duo nebs every 4, nebs every 2 hours as needed, continue Solu -Medrol, decrease to every 8 hours. On azithromycin, switch from Levaquin. Blood culture negative so far, rapid flu negative. Hypertensive Urgency- likely in the setting of respiratory distress. keep on Enalapril 1.25 q6h prn, continue metoprolol per home dose. Recheck BMP Likely with CKD - monitor, check BMP tomorrow, Cera around baseline. DVT prophylaxis-Lovenox GI prophylaxis-Famotidine Keep in the ICU for now, discussed with daughter. Progress Note: Quality VTE Deep Vein Thrombosis/Pulmonary Embolism Present on Admission: No
[2018-08-18] MEDS ORDERED: TRELEGY ELLIPTA INH SCH (09:00)
[2018-08-18] MEDS: Metoprolol Inj 5 MG/5 ML Vial IV.PUSH PRN ×2 (10:07→19:42)
[2018-08-18] MEDS ORDERED: Acetaminophen 500 MG Tablet PO PRN (10:36)
[2018-08-18] MEDS: Enoxaparin Inj 30 MG/0.3 ML Syringe SQ SCH (13:00)
[2018-08-18] MEDS: Azithromycin Inj 250 MG in Sodium Chlor 0.9% Inj 250 ML IV.SIG SCH (13:00)
[2018-08-18] MEDS ORDERED: Naloxone Inj 0.4 MG/ML Vial IV.PUSH PRN (14:00)
[2018-08-18] MEDS ORDERED: Ibuprofen 400 MG Tablet PO PRN (14:00)
[2018-08-19] MEDS: MethylPREDNISolone Sod Succinate Inj 40 MG/ML Vial IV.PUSH SCH ×2 (01:00→08:48)
[2018-08-19] MEDS: Chlorhexidine Gluconate 2% 1 Pack (2 Cloths) TOPICAL SCH (04:08)
[2018-08-19] MEDS: Metoprolol Inj 5 MG/5 ML Vial IV.PUSH PRN ×2 (04:26→11:12)
[2018-08-19 06:42] LABS: Potassium 4.1 meq/L (3.5-5.1)
[2018-08-19 06:44] LABS: Calcium 8.7 mg/dL (8.5-10.1)
[2018-08-19 06:45] LABS: Carbon Dioxide 26.5 meq/L (21.0-32.0)
[2018-08-19] MEDS: Famotidine PF Inj 20 MG/2 ML Vial IV.PUSH SCH ×3 (08:48→21:23)
[2018-08-19] MEDS: Famotidine 20 MG Tablet PO SCH ×2 (08:49→21:23)
[2018-08-19] MEDS: Ascorbic Acid 500 MG Tablet PO SCH (08:49)
[2018-08-19] MEDS: Senna/Docusate Sodium 8.6/50 MG Tablet PO SCH ×2 (08:50→21:23)
--- NOTE | 2018-08-19 09:15 | P.PNIM ---
Subjective Interval history: Follow-up for COPD exacerbation Patient feeling a lot better today, shortness of breath better, afebrile, on 2 L of oxygen, blood pressure elevated at systolic 180s, no headache, no chest pain. Physical Exam Vital signs: Last Vital Signs Temp 98.2 F 08/19/18 04:00 Pulse 69 08/19/18 07:34 Resp 19 08/19/18 07:34 BP 185/82 H 08/19/18 06:00 Pulse Ox 98 08/19/18 07:34 Intake & Output 08/17/18 08/18/18 08/19/18 08/20/18 06:59 06:59 06:59 06:59 Intake Total 500 / 500 250 / 250 Balance 500 / 500 250 / 250 Weight 47.7 kg Narrative: GENERAL: Not in distess, cachectic HEENT:not pale,anicteric NECK: no JVD CARDIOVASCULAR: Regular rate and rhythm without murmurs, gallops, or rubs. RESPIRATORY: diminished air entry. No wheezing, breath sounds clear today, on nasal cannula 2 L. GASTROINTESTINAL: Abdomen soft, non-tender, nondistended. Normal active bowel sounds MUSCULOSKELETAL: Extremities without clubbing, cyanosis, or edema. NEURO: Alert & Oriented x4 to person, place, time, situation. Moves all ext x4 Results Labs CBC & Chem 7: 08/18/18 05:50 08/19/18 06:15 Labs: Microbiology 08/18/18 10:30 Sputum - Oral Tracheal Aspirate Gram Stain - Final 08/17/18 07:50 Blood - Peripheral Aerobic Blood Culture - Preliminary No growth in 1 day 08/17/18 07:50 Blood - Peripheral Anaerobic Blood Culture - Preliminary No growth in 1 day 08/17/18 07:55 Blood - Peripheral Aerobic Blood Culture - Preliminary No growth in 1 day 08/17/18 07:55 Blood - Peripheral Anaerobic Blood Culture - Preliminary No growth in 1 day Assessment and Plan Plan 68 yo F with h/o COPD with chronic hypoxic respiratory failure on home oxygen who presented to ER with 2 day h/o worsening shortness of breath, found to be in COPD exacerbation with acute hypercarbic respiratory failure. Acute hypercarbic respiratory failure on top of chronic secondary to COPD exacerbation--likely trigger may be viral since there were sick contacts. - leukocytosis resolved. Repeat ABG better. Flu negative, BCx negative. Keep on oxygen support, duo nebs every 4, nebs every 2 hours as needed, continue Solu -Medrol, switch to oral. On azithromycin, switch from Levaquin. Blood culture negative so far, rapid flu negative. Hypertensive Urgency- likely in the setting of respiratory distress. keep on Enalapril 1.25 q6h IV prn, continue metoprolol per home dose. Start lisinopril , BMP stable. Likely with CKD -creatinine around baseline, monitor. DVT prophylaxis-Lovenox GI prophylaxis-Famotidine Transfer to [facility]. Progress Note: Quality VTE Deep Vein Thrombosis/Pulmonary Embolism Present on Admission: No
[2018-08-19] MEDS: Metoprolol Tartrate 25 MG Tablet PO SCH ×2 (09:50→21:23)
[2018-08-19] MEDS: Lisinopril 20 MG Tablet PO SCH (09:50)
[2018-08-19] MEDS: predniSONE 20 MG Tablet PO SCH ×2 (09:53→21:22)
[2018-08-19] MEDS: Azithromycin Inj 250 MG in Sodium Chlor 0.9% Inj 250 ML IV.SIG SCH (12:38)
[2018-08-19] MEDS: hydrALAZINE HCl Inj 20 MG/ML Vial IV.PUSH PRN ×2 (15:29→23:05)
[2018-08-19] MEDS: Enoxaparin Inj 30 MG/0.3 ML Syringe SQ SCH (15:29)
[2018-08-19] MEDS: hydrALAZINE 50 MG Tablet PO SCH ×2 (17:20→17:25)
[2018-08-20] MEDS: Chlorhexidine Gluconate 2% 1 Pack (2 Cloths) TOPICAL SCH (04:41)
[2018-08-20] MEDS: Lisinopril 20 MG Tablet PO SCH (09:12)
[2018-08-20] MEDS: Famotidine 20 MG Tablet PO SCH ×2 (09:12→21:27)
[2018-08-20] MEDS: predniSONE 20 MG Tablet PO SCH ×2 (09:12→21:27)
[2018-08-20] MEDS: Senna/Docusate Sodium 8.6/50 MG Tablet PO SCH ×2 (09:12→21:28)
[2018-08-20] MEDS: Metoprolol Tartrate 25 MG Tablet PO SCH ×2 (09:13→21:28)
[2018-08-20] MEDS: Ascorbic Acid 500 MG Tablet PO SCH (09:13)
[2018-08-20] MEDS: hydrALAZINE 50 MG Tablet PO SCH ×3 (09:18→21:29)
[2018-08-20] MEDS: Famotidine PF Inj 20 MG/2 ML Vial IV.PUSH SCH ×2 (09:20→21:29)
[2018-08-20] MEDS: Metoprolol Inj 5 MG/5 ML Vial IV.PUSH PRN (12:20)
[2018-08-20] MEDS: Azithromycin Inj 250 MG in Sodium Chlor 0.9% Inj 250 ML IV.SIG SCH (13:13)
[2018-08-20] MEDS: Enoxaparin Inj 30 MG/0.3 ML Syringe SQ SCH (14:27)
[2018-08-20] MEDS: amLODIPine 10 MG Tablet PO SCH (14:27)
--- NOTE | 2018-08-20 14:49 | P.PNIM ---
Subjective Interval history: Patient says that shortness of breath unchanged from yesterday. She does note that in the past shortness of breath has been worse when her blood pressure is high. She denies any chest pain. Physical Exam Vital signs: Vital Signs 08/19/18 15:00 08/19/18 16:00 08/19/18 17:05 Temperature Pulse Rate 80 90 96 H Respiratory Rate 21 52 H 47 H Blood Pressure 189/89 H 192/84 H Pulse Oximetry 97 97 95 08/19/18 17:29 08/19/18 18:00 08/19/18 19:00 Temperature 98.3 F Pulse Rate 93 H 108 H 108 H Respiratory Rate 22 55 H 24 Blood Pressure 170/72 H 147/82 H Pulse Oximetry 96 96 08/19/18 19:28 08/19/18 20:00 08/19/18 21:00 Temperature Pulse Rate 92 H 107 H 103 H Respiratory Rate 18 Blood Pressure Pulse Oximetry 97 96 08/19/18 22:00 08/19/18 23:00 08/20/18 00:00 Temperature 98.3 F Pulse Rate 88 87 88 Respiratory Rate 28 H Blood Pressure 154/67 H Pulse Oximetry 96 08/20/18 01:00 08/20/18 02:00 08/20/18 02:09 Temperature Pulse Rate 88 93 H 93 H Respiratory Rate Blood Pressure Pulse Oximetry 08/20/18 04:00 08/20/18 04:40 08/20/18 06:00 Temperature 98.3 F Pulse Rate 92 H 84 85 Respiratory Rate 28 H Blood Pressure 175/75 H Pulse Oximetry 96 08/20/18 07:00 08/20/18 07:58 08/20/18 08:00 Temperature Pulse Rate 80 84 Respiratory Rate 20 19 Blood Pressure 198/93 H Pulse Oximetry 98 99 08/20/18 08:58 08/20/18 09:00 08/20/18 09:58 Temperature Pulse Rate 90 94 H 82 Respiratory Rate 41 H 25 H 23 Blood Pressure 191/89 H 190/82 H Pulse Oximetry 96 95 99 08/20/18 10:00 08/20/18 10:58 08/20/18 11:58 Temperature Pulse Rate 80 86 88 Respiratory Rate 22 40 H 22 Blood Pressure 191/82 H 198/95 H Pulse Oximetry 99 98 99 08/20/18 12:00 08/20/18 14:22 Temperature Pulse Rate 88 83 Respiratory Rate 21 21 Blood Pressure Pulse Oximetry 99 Intake & Output 08/19/18 08/20/18 08/20/18 18:59 06:59 18:59 Intake Total 250 / 250 Balance 250 / 250 Weight 47.7 kg Intake: IV 250 / 250 Azithromycin Inj 250 MG In NS 250 / 250 Inj 250 ML @ 250 mls/hr IV.SIG Q24H MARICEL Rx#:[id number] Other: Date of Last Bowel Movement 08/18/18 08/18/18 Narrative: GENERAL: Patient sitting up in bed. Appears comfortable. She does appear short of breath. She says this is unchanged from yesterday SKIN: Warm and dry. HEAD: Normocephalic. EYES: No scleral icterus. No injection or drainage. NECK: Supple, trachea midline. No JVD. CARDIOVASCULAR: Regular rate and rhythm without murmurs, gallops, or rubs. RESPIRATORY: Breath sounds equal bilaterally. No accessory muscle use. GASTROINTESTINAL: Abdomen soft, non-tender, nondistended. MUSCULOSKELETAL: No cyanosis, or edema. BACK: Nontender without obvious deformity. No CVA tenderness. Results - Labs CBC & Chem 7: 08/18/18 05:50 08/19/18 06:15 Microbiology 08/18/18 10:30 Sputum - Oral Tracheal Aspirate Gram Stain - Final 08/18/18 10:30 Sputum - Oral Tracheal Aspirate Sputum Culture - Final Heavy growth normal respiratory angelito 08/17/18 07:50 Blood - Peripheral Aerobic Blood Culture - Preliminary No growth in 3 days 08/17/18 07:50 Blood - Peripheral Anaerobic Blood Culture - Preliminary No growth in 3 days 08/17/18 07:55 Blood - Peripheral Aerobic Blood Culture - Preliminary No growth in 3 days 08/17/18 07:55 Blood - Peripheral Anaerobic Blood Culture - Preliminary No growth in 3 days Assessment and Plan - Plan 68 yo F with h/o COPD with chronic hypoxic respiratory failure on home oxygen who presented to ER with 2 day h/o worsening shortness of breath, found to be in COPD exacerbation with acute hypercarbic respiratory failure. //Acute hypercarbic respiratory failure on top of chronic secondary to COPD exacerbation--likely trigger may be viral since there were sick contacts. - leukocytosis resolved. Repeat ABG better. Flu negative, BCx negative. Keep on oxygen support, duo nebs every 4, nebs every 2 hours as needed, continue Solu -Medrol, switch to oral. On azithromycin, switch from Levaquin. Blood culture negative so far, rapid flu negative. //Hypertensive Urgency- likely in the setting of respiratory distress. keep on Enalapril 1.25 q6h IV prn, continue metoprolol per home dose. Start lisinopril , BMP stable. -08/20. Blood pressure still elevated with systolic blood pressures in the 190s. Will add amlodipine. Due to history of renal artery stenosis, will consult nephrology for further workup. //Likely with CKD -creatinine around baseline, monitor. //DVT prophylaxis-Lovenox //GI prophylaxis-Famotidine Discussed Condition With: Patient, nurse Discharge Planning: Pending improvement
[2018-08-20 15:56] LABS: Baso % (Auto) 0.1 % (0.0-2.0); Eos % (Auto) 0.1 % (0.0-4.0); Hematocrit 40.5 % (35.0-46.0); Hemoglobin 13.1 gm/dL (11.6-15.3); Lymph % (Auto) 7.4 % (9.0-44.0); Mean Corpuscular HGB Conc 32.4 % (32.0-36.0); Mean Corpuscular Hemoglobin 29.4 pg (27.0-34.0); Mean Corpuscular Volume 90.6 fL (80.0-100.0); Mean Platelet Volume 9.2 fL (7.0-11.0); Mono # (Auto) 0.7 th/mm3 (0.0-0.9); Mono % (Auto) 4.9 % (0.0-8.0); Neut # (Auto) 12.3 th/mm3 (1.8-7.7); Neut % (Auto) 87.5 % (16.0-70.0); Platelet Count 380 th/mm3 (150-450); Red Blood Count 4.47 mil/mm3 (4.00-5.30)
[2018-08-21] MEDS: hydrALAZINE HCl Inj 20 MG/ML Vial IV.PUSH PRN (05:40)
[2018-08-21] MEDS: Chlorhexidine Gluconate 2% 1 Pack (2 Cloths) TOPICAL SCH (07:43)
[2018-08-21] MEDS: predniSONE 20 MG Tablet PO SCH ×2 (08:20→21:15)
[2018-08-21] MEDS: Lisinopril 20 MG Tablet PO SCH (08:21)
[2018-08-21] MEDS: Famotidine 20 MG Tablet PO SCH ×2 (08:21→23:47)
[2018-08-21] MEDS: amLODIPine 10 MG Tablet PO SCH (08:21)
[2018-08-21] MEDS: Ascorbic Acid 500 MG Tablet PO SCH (08:21)
[2018-08-21] MEDS: hydrALAZINE 50 MG Tablet PO SCH ×3 (08:21→17:16)
[2018-08-21] MEDS: Senna/Docusate Sodium 8.6/50 MG Tablet PO SCH ×2 (08:21→21:15)
[2018-08-21] MEDS: Famotidine PF Inj 20 MG/2 ML Vial IV.PUSH SCH ×2 (08:22→21:17)
[2018-08-21] MEDS: Metoprolol Tartrate 25 MG Tablet PO SCH ×2 (08:22→21:15)
--- NOTE | 2018-08-21 11:26 | P.PNIM ---
Subjective Interval history: Patient says she felt short of breath overnight, however better currently. Denies any chest pain. Physical Exam Vital signs: Vital Signs 08/20/18 11:58 08/20/18 12:00 08/20/18 12:58 Temperature Pulse Rate 88 88 80 Respiratory Rate 22 21 29 H Blood Pressure 198/95 H 192/89 H Pulse Oximetry 99 99 99 08/20/18 13:58 08/20/18 14:00 08/20/18 14:22 Temperature Pulse Rate 80 78 83 Respiratory Rate 23 24 21 Blood Pressure 173/80 H Pulse Oximetry 96 97 08/20/18 14:58 08/20/18 15:58 08/20/18 16:58 Temperature Pulse Rate 86 86 82 Respiratory Rate 30 H 37 H 29 H Blood Pressure 161/71 H 178/81 H 179/74 H Pulse Oximetry 98 96 98 08/20/18 17:00 08/20/18 17:58 08/20/18 18:00 Temperature Pulse Rate 80 96 H 94 H Respiratory Rate 25 H 29 H 24 Blood Pressure 167/72 H Pulse Oximetry 99 87 L 99 08/20/18 18:58 08/20/18 19:00 08/20/18 19:23 Temperature 99.1 F Pulse Rate 94 H 92 H 88 Respiratory Rate 20 20 22 Blood Pressure 173/76 H 173/76 H Pulse Oximetry 98 98 95 08/20/18 19:58 08/20/18 20:00 08/20/18 20:58 Temperature 99.1 F Pulse Rate 88 88 88 Respiratory Rate 20 22 20 Blood Pressure 156/70 H 156/70 H 163/76 H Pulse Oximetry 98 98 97 08/20/18 21:00 08/20/18 21:58 08/20/18 22:00 Temperature Pulse Rate 90 86 84 Respiratory Rate 22 20 20 Blood Pressure 165/75 H 158/63 H 156/73 H Pulse Oximetry 97 97 97 08/20/18 22:45 08/20/18 22:58 08/20/18 23:00 Temperature Pulse Rate 74 72 Respiratory Rate 35 H 20 20 Blood Pressure 165/75 H 165/75 H Pulse Oximetry 99 98 08/20/18 23:15 08/21/18 00:00 08/21/18 00:02 Temperature 98 F Pulse Rate 80 76 Respiratory Rate 23 20 20 Blood Pressure 165/75 H 159/67 H Pulse Oximetry 95 97 08/21/18 00:56 08/21/18 01:00 08/21/18 01:53 Temperature Pulse Rate 84 76 72 Respiratory Rate 15 14 22 Blood Pressure 179/71 H 160/72 H 158/65 H Pulse Oximetry 97 97 97 08/21/18 02:00 08/21/18 02:53 08/21/18 03:00 Temperature Pulse Rate 70 72 72 Respiratory Rate 20 22 17 Blood Pressure 160/72 H 160/72 H 160/72 H Pulse Oximetry 97 98 97 08/21/18 03:53 08/21/18 04:00 08/21/18 04:53 Temperature Pulse Rate 74 74 78 Respiratory Rate 15 15 17 Blood Pressure 183/72 H 183/72 H 180/83 H Pulse Oximetry 95 95 96 08/21/18 05:00 08/21/18 05:53 08/21/18 06:00 Temperature Pulse Rate 80 76 76 Respiratory Rate 18 17 15 Blood Pressure 168/69 H 168/69 H Pulse Oximetry 96 96 96 08/21/18 06:53 08/21/18 07:00 08/21/18 07:53 Temperature Pulse Rate 92 H 78 72 Respiratory Rate 20 20 23 Blood Pressure 188/89 H 183/93 H Pulse Oximetry 93 L 99 99 08/21/18 08:00 08/21/18 08:13 08/21/18 08:23 Temperature Pulse Rate 78 76 Respiratory Rate 16 18 20 Blood Pressure 188/87 H Pulse Oximetry 98 98 08/21/18 08:53 08/21/18 08:54 08/21/18 09:00 Temperature 97.3 F L Pulse Rate 88 77 84 Respiratory Rate 17 17 17 Blood Pressure 153/62 H 188/87 H Pulse Oximetry 97 98 96 08/21/18 09:53 08/21/18 10:00 Temperature Pulse Rate 88 78 Respiratory Rate 21 22 Blood Pressure 143/68 H Pulse Oximetry 97 97 Intake & Output 08/20/18 08/21/18 08/21/18 18:59 06:59 18:59 Intake Total 240 / 240 250 / 250 Output Total 400 / 400 Balance -160 / -160 250 / 250 Weight 50.6 kg Intake: IV 250 / 250 Azithromycin Inj 250 MG In NS 250 / 250 Inj 250 ML @ 250 mls/hr IV.SIG Q24H MARICEL Rx#:[id number] Oral 240 / 240 Output: Urine 400 / 400 Other: Date of Last Bowel Movement 08/18/18 08/18/18 # Bowel Movements 0 Narrative: GENERAL: Patient sitting up in bed. Appears comfortable. Appears less short of breath than yesterday. SKIN: Warm and dry. HEAD: Normocephalic. EYES: No scleral icterus. No injection or drainage. NECK: Supple, trachea midline. No JVD. CARDIOVASCULAR: Regular rate and rhythm without murmurs, gallops, or rubs. RESPIRATORY: Breath sounds equal bilaterally. No accessory muscle use. GASTROINTESTINAL: Abdomen soft, non-tender, nondistended. MUSCULOSKELETAL: No cyanosis, or edema. BACK: Nontender without obvious deformity. No CVA tenderness. Results - Labs CBC & Chem 7: 08/20/18 15:15 08/19/18 06:15 Laboratory Results - last 24 hr 08/20/18 08/20/18 15:15 15:15 CBC w Diff Auto diff final WBC 14.0 H RBC 4.47 Hgb 13.1 Hct 40.5 MCV 90.6 MCH 29.4 MCHC 32.4 RDW 14.0 Plt Count 380 D MPV 9.2 Neut % (Auto) 87.5 H Lymph % (Auto) 7.4 L [place] % (Auto) 4.9 Eos % (Auto) 0.1 Baso % (Auto) 0.1 Neut # (Auto) 12.3 H Lymph # (Auto) 1.0 [place] # (Auto) 0.7 Eos # (Auto) 0.0 Baso # (Auto) 0.0 WBC Differential . Differential Comment . B-Natriuretic Peptide 702 H Microbiology 08/17/18 07:50 Blood - Peripheral Aerobic Blood Culture - Preliminary No growth in 4 days 08/17/18 07:50 Blood - Peripheral Anaerobic Blood Culture - Preliminary No growth in 4 days 08/17/18 07:55 Blood - Peripheral Aerobic Blood Culture - Preliminary No growth in 4 days 08/17/18 07:55 Blood - Peripheral Anaerobic Blood Culture - Preliminary No growth in 4 days 08/18/18 10:30 Sputum - Oral Tracheal Aspirate Gram Stain - Final 08/18/18 10:30 Sputum - Oral Tracheal Aspirate Sputum Culture - Final Heavy growth normal respiratory angelito Assessment and Plan - Plan 68 yo F with h/o COPD with chronic hypoxic respiratory failure on home oxygen who presented to ER with 2 day h/o worsening shortness of breath, found to be in COPD exacerbation with acute hypercarbic respiratory failure. //Acute hypercarbic respiratory failure on top of chronic secondary to COPD exacerbation //Acute diastolic CHF exacerbation --likely trigger may be viral since there were sick contacts. - leukocytosis resolved. Repeat ABG better. Flu negative, BCx negative. Keep on oxygen support, duo nebs every 4, nebs every 2 hours as needed, continue Solu -Medrol, switch to oral. On azithromycin, switch from Levaquin. Blood culture negative so far, rapid flu negative. = BNP elevated in the 700s. Add scheduled IV Lasix. Will check echocardiogram. Likely exacerbated secondary to hypertension. //Hypertensive Urgency- likely in the setting of respiratory distress. keep on Enalapril 1.25 q6h IV prn, continue metoprolol per home dose. Start lisinopril , BMP stable. -08/20. Blood pressure still elevated with systolic blood pressures in the 190s. Will add amlodipine. Due to history of renal artery stenosis, will consult nephrology for further workup. = 08/21. Follow-up with nephrology relations. Appreciate assistance. //Likely with CKD -creatinine around baseline, monitor. //DVT prophylaxis-Lovenox //GI prophylaxis-Famotidine Discharge Planning: Pending improvement
[2018-08-21 13:38] LABS: Baso % (Auto) 0.1 % (0.0-2.0); Eos % (Auto) 0.1 % (0.0-4.0); Hematocrit 39.2 % (35.0-46.0); Hemoglobin 12.8 gm/dL (11.6-15.3); Lymph # (Auto) 1.2 th/mm3 (1.0-4.8); Lymph % (Auto) 8.9 % (9.0-44.0); Mean Corpuscular HGB Conc 32.5 % (32.0-36.0); Mean Corpuscular Hemoglobin 29.5 pg (27.0-34.0); Mean Corpuscular Volume 90.6 fL (80.0-100.0); Mean Platelet Volume 8.9 fL (7.0-11.0); Mono # (Auto) 0.7 th/mm3 (0.0-0.9); Mono % (Auto) 5.5 % (0.0-8.0); Neut % (Auto) 85.4 % (16.0-70.0); Platelet Count 405 th/mm3 (150-450); Red Blood Count 4.33 mil/mm3 (4.00-5.30); Red Cell Distribution Width 14.1 % (11.6-17.2); White Blood Count 12.9 th/mm3 (4.0-11.0)
[2018-08-21] MEDS: Azithromycin Inj 250 MG in Sodium Chlor 0.9% Inj 250 ML IV.SIG SCH (13:43)
[2018-08-21] MEDS: Enoxaparin Inj 30 MG/0.3 ML Syringe SQ SCH (13:43)
[2018-08-21 13:49] LABS: Potassium 4.4 meq/L (3.5-5.1)
[2018-08-21 13:51] LABS: Calcium 8.4 mg/dL (8.5-10.1)
[2018-08-21 13:52] LABS: Carbon Dioxide 27.4 meq/L (21.0-32.0)
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
--- NOTE | 2018-08-21 16:42 | ECHRPT ---
Indication: Heart Failure CONCLUSIONS Normal left ventricular size. Wall thickness is normal. The left ventricular systolic function is normal with an estimated ejection fraction in the range of 55-60%. Mild mitral valve regurgitation. There is trace tricuspid valve regurgitation. BP: / HR: Rhythm: Technical Quality:Technically difficult study FINDINGS LEFT VENTRICLE Normal left ventricular size. Wall thickness is normal. The left ventricular systolic function is normal with an estimated ejection fraction in the range of 55-60%. No regional wall motion abnormalities are present. RIGHT VENTRICLE Normal right ventricular size and systolic function. LEFT ATRIUM The left atrial size is normal. RIGHT ATRIUM The right atrial size is normal. A prominent eustachian valve is observed in the right atrium (benign finding). ATRIAL SEPTUM No atrial level shunting by limited color doppler interrogation. Thickened atrial septum is noted with morphological features most consistent with a lipomatous atria l septum. AORTA The aortic root and proximal ascending aorta are normal in size on limited imaging. MITRAL VALVE Mild thickening of the mitral valve leaflets. Mild mitral valve regurgitation. AORTIC VALVE Trileaflet aortic valve. No aortic valve stenosis or regurgitation. TRICUSPID VALVE The tricuspid valve is not well visualized. There is trace tricuspid valve regurgitation. PULMONARY VALVE The pulmonary valve is not well visualized. VESSELS The inferior vena cava is normal in size. PERICARDIUM No pericardial effusion. Jamie Urban (Electronically Signed) Final Date:21 August 2018 16:42
--- NOTE | 2018-08-21 17:29 | MB ---
cc: Juliet Pang MD DATE: 08/21/2018 REASON FOR CONSULTATION: Chronic kidney disease and history of hypertension with renal artery stenosis. HISTORY OF PRESENT ILLNESS: This is a 68-year-old female with past medical history of hypertension, mild chronic kidney disease, history of renal artery stenosis with stenting done in the past; came to the hospital complaining of worsening shortness of breath. I was called to see the patient because of history of uncontrolled hypertension and history of renal stenosis and history of angiogram done in November 2016. The patient has history 95% stenosis in the left renal artery and at that time angioplasty was suboptimal and it was high grade stenosis in the proximal left renal artery. When the patient came in here this time, her blood pressure was on the higher side and she has readings of systolic in the 180s most of the time, but it has been improving now. The patient has a creatinine in the range of 1.2-1.3 and previously in November 2016 it was fluctuating from 1.0 to 1.3. She had initial reading of 2.0. The patient has not been following with me as outpatient, but I saw her when she was here in November 2016. Her breathing has been improved and she is feeling better. PAST MEDICAL HISTORY: Hypertension, chronic kidney disease, history of renal artery stenosis, hyperlipidemia, COPD. PAST SURGICAL HISTORY: History of hysterectomy, history of renal angiogram and attempted angioplasty. REVIEW OF SYSTEMS: There is no history of fever. No headache. No dizziness. She has the shortness of breath associated with cough which is mainly dry. There is no chest pain. No palpitation. No nausea or vomiting. No abdominal pain. No history of diarrhea. No dysuria, hematuria, difficulty passing urine. SOCIAL HISTORY: The patient is a chronic smoker. There is no history of alcoholism. FAMILY HISTORY: Noncontributory. ALLERGIES: SHE IS ALLERGIC TO PENICILLIN AND CODEINE. MEDICATIONS: Currently she is on the following medications: 1. [place] as needed. 2. DuoNeb nebulizer. 3. Norvasc 10 mg once a day. 4. Vitamin C 500 mg daily. 5. Lipitor 10 mg at night 6. Azithromycin 500 mg once a day. 7. Dulcolax as needed. 8. Plavix 75 mg once a day. 9. Vasotec 1.25 mg IV push p.r.n. 10. Famotidine 10 mg IV every 12 hours and 10 mg b.i.d. 11. Lasix 20 mg IV b.i.d. 12. Apresoline 10 mg p.r.n. 13. Prinivil 20 mg once a day. 14. Lopressor 2.5 mg IV p.r.n. and 25 mg b.i.d. 15. Najma-Colace as needed. PHYSICAL EXAMINATION: GENERAL: She is awake, alert. She is not in acute distress. VITAL SIGNS: Blood pressure is now 112/54, temperature is 98.2, oxygen saturation is 96% on nasal cannula 2 liters. HEENT: Pupils are mid constricted. Nonicteric sclerae. Conjunctivae pale. NECK: Supple. JVD is not elevated. LUNGS: The patient has bilateral decreased air entry with scattered wheezing. HEART: S1, S2. Regular rhythm. ABDOMEN: Distended, soft, lax. There is no tenderness. Bowel sounds positive. EXTREMITIES: There is mild pedal edema. LABORATORY DATA: WBC count is 12.9, hemoglobin 12.8, platelet count of 405, neutrophils 85.4%. INR is 1.0. Sodium 132, potassium 4.4, chloride 96, bicarbonate 27.4, BUN 42, creatinine 1.3, calcium is 8.4. Cultures are all negative. IMAGING STUDIES: 1. The patient had ultrasound of the bladder and abdomen done which shows a left kidney 7.2 cm and the right kidney 9.9 cm. No hydronephrosis or solid mass. 2. The patient also has chest x-ray done, which shows hyperinflation because of COPD. ASSESSMENT AND PLAN: 1. Hypertension, uncontrolled. 2. Chronic kidney disease with history of renal artery stenosis. 3. Chronic obstructive pulmonary disease with exacerbation. The patient has a small left kidney and she has severe renal artery stenosis with more than 95% obstruction on the angiogram, which was done in November 2016. She has most likely single functional kidney and her creatinine 1.3, probably is close to baseline. Need to have better control of blood pressure. She is tolerating the FREDIS inhibitor without having any problem with potassium or increase in the creatinine, so continue that and maybe there is some issue of compliance. Also, she needs to stop smoking. Thank you for the consultation. I will follow the patient while she is in the hospital. Dino Pang MD AQJ/ld , 04:48 PM , 05:00 PM
[2018-08-22] MEDS: Chlorhexidine Gluconate 2% 1 Pack (2 Cloths) TOPICAL SCH (04:00)
[2018-08-22] MEDS: Famotidine PF Inj 20 MG/2 ML Vial IV.PUSH SCH ×2 (08:27→21:48)
[2018-08-22] MEDS: Ascorbic Acid 500 MG Tablet PO SCH (08:28)
--- NOTE | 2018-08-22 08:28 | P.PNIM ---
Subjective Interval history: Patient says her breathing a little better today. Denies any chest pain. Physical Exam Vital signs: Vital Signs 08/21/18 08:53 08/21/18 08:54 08/21/18 09:00 Temperature 97.3 F L Pulse Rate 88 77 84 Respiratory Rate 17 17 17 Blood Pressure 153/62 H 188/87 H Pulse Oximetry 97 98 96 08/21/18 09:53 08/21/18 10:00 08/21/18 10:53 Temperature Pulse Rate 88 78 78 Respiratory Rate 21 22 34 H Blood Pressure 143/68 H Pulse Oximetry 97 97 95 08/21/18 11:00 08/21/18 11:53 08/21/18 12:00 Temperature Pulse Rate 68 74 82 Respiratory Rate 19 22 20 Blood Pressure 128/59 L 141/76 H Pulse Oximetry 96 97 96 08/21/18 12:53 08/21/18 13:00 08/21/18 13:53 Temperature 98.2 F Pulse Rate 78 78 84 Respiratory Rate 22 20 20 Blood Pressure 121/55 L 121/53 L Pulse Oximetry 95 97 95 08/21/18 14:00 08/21/18 14:40 08/21/18 14:53 Temperature Pulse Rate 90 81 82 Respiratory Rate 41 H 16 20 Blood Pressure 112/54 L Pulse Oximetry 96 95 08/21/18 15:00 08/21/18 15:54 08/21/18 16:00 Temperature Pulse Rate 82 90 86 Respiratory Rate 22 19 20 Blood Pressure 131/57 L Pulse Oximetry 96 96 96 08/21/18 16:54 08/21/18 17:00 08/21/18 17:52 Temperature 98.8 F Pulse Rate 92 H 94 H Respiratory Rate 20 37 H Blood Pressure 145/69 H Pulse Oximetry 96 97 08/21/18 17:54 08/21/18 18:00 08/21/18 19:00 Temperature Pulse Rate 92 H 94 H 90 Respiratory Rate 22 20 25 H Blood Pressure 109/54 L 130/61 Pulse Oximetry 96 97 90 L 08/21/18 19:57 08/21/18 20:00 08/21/18 21:00 Temperature 98.7 F Pulse Rate 88 106 H Respiratory Rate 16 22 Blood Pressure 132/64 149/66 H Pulse Oximetry 96 95 93 L 08/21/18 22:00 08/21/18 22:55 08/22/18 00:00 Temperature 97.9 F Pulse Rate 79 75 76 Respiratory Rate 20 20 22 Blood Pressure 94/71 L 128/85 99/72 L Pulse Oximetry 98 98 94 L 08/22/18 00:18 08/22/18 01:00 08/22/18 02:00 Temperature Pulse Rate 76 76 Respiratory Rate 0 L 18 15 Blood Pressure 104/65 107/70 Pulse Oximetry 94 L 08/22/18 03:00 08/22/18 04:00 08/22/18 05:00 Temperature 97.8 F Pulse Rate 76 74 74 Respiratory Rate 18 15 19 Blood Pressure 133/88 139/82 102/69 Pulse Oximetry 94 L 94 L 08/22/18 06:00 08/22/18 07:37 Temperature Pulse Rate 79 83 Respiratory Rate 13 16 Blood Pressure 98/69 L Pulse Oximetry 94 L 96 Intake & Output 08/21/18 08/22/18 08/22/18 18:59 06:59 18:59 Intake Total 740 / 740 240 / 240 Output Total 400 / 400 Balance 340 / 340 240 / 240 Weight 50.1 kg Intake: IV 500 / 500 Azithromycin Inj 250 MG In NS 500 / 500 Inj 250 ML @ 250 mls/hr IV.SIG Q24H MARICEL Rx#:[id number] Oral 240 / 240 240 / 240 Output: Urine 400 / 400 Other: Date of Last Bowel Movement 08/18/18 # Bowel Movements 0 0 Narrative: GENERAL: Patient sitting up in bed. Appears comfortable. Appears again less short of breath than yesterday. SKIN: Warm and dry. HEAD: Normocephalic. EYES: No scleral icterus. No injection or drainage. NECK: Supple, trachea midline. No JVD. CARDIOVASCULAR: Regular rate and rhythm without murmurs, gallops, or rubs. RESPIRATORY: Breath sounds equal bilaterally. No accessory muscle use. GASTROINTESTINAL: Abdomen soft, non-tender, nondistended. MUSCULOSKELETAL: No cyanosis, or edema. BACK: Nontender without obvious deformity. No CVA tenderness. Results - Labs CBC & Chem 7: 08/21/18 13:15 08/21/18 13:15 Laboratory Results - last 24 hr 08/21/18 08/21/18 13:15 13:15 CBC w Diff Auto diff final WBC 12.9 H RBC 4.33 Hgb 12.8 Hct 39.2 MCV 90.6 MCH 29.5 MCHC 32.5 RDW 14.1 Plt Count 405 MPV 8.9 Neut % (Auto) 85.4 H Lymph % (Auto) 8.9 L [place] % (Auto) 5.5 Eos % (Auto) 0.1 Baso % (Auto) 0.1 Neut # (Auto) 11.0 H Lymph # (Auto) 1.2 [place] # (Auto) 0.7 Eos # (Auto) 0.0 Baso # (Auto) 0.0 WBC Differential . Differential Comment . Sodium 132 L Potassium 4.4 Chloride 96 L Carbon Dioxide 27.4 Anion Gap 9 BUN 42 H Creatinine 1.30 H Estimated GFR 41 L Random Glucose 156 H Calcium 8.4 L Microbiology 08/17/18 07:50 Blood - Peripheral Aerobic Blood Culture - Preliminary No growth in 4 days 08/17/18 07:50 Blood - Peripheral Anaerobic Blood Culture - Preliminary No growth in 4 days 08/17/18 07:55 Blood - Peripheral Aerobic Blood Culture - Preliminary No growth in 4 days 08/17/18 07:55 Blood - Peripheral Anaerobic Blood Culture - Preliminary No growth in 4 days - Imaging Impressions Abdomen/Bladder Ultrasound 08/21/18 00:00 CONCLUSION: 1. Small left kidney which may be related to renal ischemia. 2. No hydronephrosis or solid renal mass. Assessment and Plan - Plan 68 yo F with h/o COPD with chronic hypoxic respiratory failure on home oxygen who presented to ER with 2 day h/o worsening shortness of breath, found to be in COPD exacerbation with acute hypercarbic respiratory failure. //Acute hypercarbic respiratory failure on top of chronic secondary to COPD exacerbation //Acute diastolic CHF exacerbation --likely trigger may be viral since there were sick contacts. - leukocytosis resolved. Repeat ABG better. Flu negative, BCx negative. Keep on oxygen support, duo nebs every 4, nebs every 2 hours as needed, continue Solu -Medrol, switch to oral. On azithromycin, switch from Levaquin. Blood culture negative so far, rapid flu negative. = BNP elevated in the 700s. Add scheduled IV Lasix. Will check echocardiogram. Likely exacerbated secondary to hypertension. = 08/22. Echocardiogram with ejection fraction of 55/60. Trace tricuspid valve regurgitation, mild mitral valve regurgitation. Likely secondary to runaway hypertension. Patient's blood pressure appears to be over controlled today with systolic blood pressures in the 90s. Taper steroids. Will decrease hydralazine and monitor. //Hypertensive Urgency- likely in the setting of respiratory distress. keep on Enalapril 1.25 q6h IV prn, continue metoprolol per home dose. Start lisinopril , BMP stable. -08/20. Blood pressure still elevated with systolic blood pressures in the 190s. Will add amlodipine. Due to history of renal artery stenosis, will consult nephrology for further workup. = 08/21. Follow-up with nephrology relations. Appreciate assistance. = 08/22. Atrophic left kidney as per nephrology. Appreciate assistance. Decrease hydralazine as above due to relative hypotension. We will continue with blood pressure management. //CKD -creatinine around baseline, monitor. //DVT prophylaxis-Lovenox //GI prophylaxis-Famotidine Discharge Planning: Order PT evaluation Hopefully patient can discharge in the next 1-2 days.
[2018-08-22] MEDS: amLODIPine 10 MG Tablet PO SCH (08:29)
[2018-08-22] MEDS: Metoprolol Tartrate 25 MG Tablet PO SCH ×2 (08:29→21:46)
[2018-08-22] MEDS: Lisinopril 20 MG Tablet PO SCH (08:29)
[2018-08-22] MEDS: Senna/Docusate Sodium 8.6/50 MG Tablet PO SCH ×2 (08:30→21:46)
[2018-08-22] MEDS: predniSONE 10 MG Tablet PO SCH ×2 (09:39→21:45)
[2018-08-22] MEDS: Famotidine 20 MG Tablet PO SCH ×2 (09:39→21:46)
[2018-08-22] MEDS: hydrALAZINE 25 MG Tablet PO SCH ×3 (09:39→17:30)
[2018-08-22 11:22] LABS: Potassium 3.7 meq/L (3.5-5.1)
[2018-08-22 11:25] LABS: Calcium 8.4 mg/dL (8.5-10.1); Carbon Dioxide 26.9 meq/L (21.0-32.0)
--- NOTE | 2018-08-22 12:02 | P.PNNP ---
Subjective Interval history: Patient is alert, no SOB, no dizziness, not in distress. Physical Exam Vital signs: Vital Signs 08/21/18 12:53 08/21/18 13:00 08/21/18 13:53 Temperature 98.2 F Pulse Rate 78 78 84 Respiratory Rate 22 20 20 Blood Pressure 121/55 L 121/53 L Pulse Oximetry 95 97 95 08/21/18 14:00 08/21/18 14:40 08/21/18 14:53 Temperature Pulse Rate 90 81 82 Respiratory Rate 41 H 16 20 Blood Pressure 112/54 L Pulse Oximetry 96 95 08/21/18 15:00 08/21/18 15:54 08/21/18 16:00 Temperature Pulse Rate 82 90 86 Respiratory Rate 22 19 20 Blood Pressure 131/57 L Pulse Oximetry 96 96 96 08/21/18 16:54 08/21/18 17:00 08/21/18 17:52 Temperature 98.8 F Pulse Rate 92 H 94 H Respiratory Rate 20 37 H Blood Pressure 145/69 H Pulse Oximetry 96 97 08/21/18 17:54 08/21/18 18:00 08/21/18 18:54 Temperature Pulse Rate 92 H 94 H 92 H Respiratory Rate 22 20 26 H Blood Pressure 109/54 L 130/61 Pulse Oximetry 96 97 96 08/21/18 19:00 08/21/18 19:54 08/21/18 19:57 Temperature Pulse Rate 90 92 H Respiratory Rate 22 34 H Blood Pressure 130/61 132/64 Pulse Oximetry 96 96 08/21/18 20:00 08/21/18 20:54 08/21/18 21:00 Temperature 98.7 F Pulse Rate 88 90 84 Respiratory Rate 16 18 19 Blood Pressure 132/64 149/67 H 149/66 H Pulse Oximetry 95 93 L 08/21/18 21:54 08/21/18 22:00 08/21/18 22:54 Temperature Pulse Rate 88 76 74 Respiratory Rate 27 H 15 16 Blood Pressure 94/71 L 94/71 L 128/85 Pulse Oximetry 98 08/21/18 22:55 08/21/18 23:00 08/21/18 23:54 Temperature Pulse Rate 75 74 82 Respiratory Rate 20 17 15 Blood Pressure 128/85 99/72 L Pulse Oximetry 98 08/22/18 00:00 08/22/18 00:18 08/22/18 00:54 Temperature 97.9 F Pulse Rate 76 76 Respiratory Rate 16 0 L 15 Blood Pressure 99/72 L 104/65 Pulse Oximetry 94 L 08/22/18 01:00 08/22/18 01:54 08/22/18 02:00 Temperature Pulse Rate 76 74 74 Respiratory Rate 15 14 21 Blood Pressure 104/65 107/70 107/70 Pulse Oximetry 94 L 08/22/18 02:54 08/22/18 03:00 08/22/18 03:54 Temperature Pulse Rate 78 76 84 Respiratory Rate 16 14 17 Blood Pressure 133/88 133/88 139/82 Pulse Oximetry 94 L 08/22/18 04:00 08/22/18 04:54 08/22/18 05:00 Temperature 97.8 F Pulse Rate 74 86 74 Respiratory Rate 15 14 19 Blood Pressure 139/82 101/69 102/69 Pulse Oximetry 94 L 08/22/18 05:54 08/22/18 06:00 08/22/18 06:54 Temperature Pulse Rate 86 88 78 Respiratory Rate 15 21 15 Blood Pressure 98/69 L 98/69 L 104/61 Pulse Oximetry 94 L 08/22/18 07:00 08/22/18 07:35 08/22/18 07:36 Temperature Pulse Rate 86 76 82 Respiratory Rate 19 40 H 27 H Blood Pressure 81/71 L 99/74 L Pulse Oximetry 08/22/18 07:37 08/22/18 07:54 08/22/18 08:00 Temperature 98.3 F Pulse Rate 83 78 88 Respiratory Rate 16 13 25 H Blood Pressure 100/68 99/74 L Pulse Oximetry 96 96 08/22/18 08:54 08/22/18 09:00 08/22/18 09:58 Temperature Pulse Rate 84 70 70 Respiratory Rate 31 H 20 39 H Blood Pressure 101/65 83/52 L Pulse Oximetry 08/22/18 10:00 08/22/18 10:02 08/22/18 10:22 Temperature Pulse Rate 70 68 68 Respiratory Rate 35 H 25 H 40 H Blood Pressure 88/54 L 92/62 L Pulse Oximetry 94 L 08/22/18 10:54 08/22/18 10:56 08/22/18 10:57 Temperature Pulse Rate 66 68 68 Respiratory Rate 18 17 18 Blood Pressure 84/66 L 78/65 L 140/65 Pulse Oximetry 97 97 97 12/28/18 11:00 08/22/18 11:02 Temperature Pulse Rate 68 68 Respiratory Rate 18 19 Blood Pressure 139/58 L Pulse Oximetry 97 98 Intake & Output 08/21/18 08/22/18 08/22/18 18:59 06:59 18:59 Intake Total 740 / 740 240 / 240 Output Total 400 / 400 Balance 340 / 340 240 / 240 Weight 50.1 kg Intake: IV 500 / 500 Azithromycin Inj 250 MG In NS 500 / 500 Inj 250 ML @ 250 mls/hr IV.SIG Q24H MARICEL Rx#:[id number] Oral 240 / 240 240 / 240 Output: Urine 400 / 400 Other: Date of Last Bowel Movement 08/18/18 # Bowel Movements 0 0 Narrative: GENERAL: Patient sitting up in bed. Appears comfortable. Systolic blood pressures 102 on my exam. SKIN: Warm and dry. HEAD: Normocephalic. EYES: No scleral icterus. No injection or drainage. NECK: Supple, trachea midline. No JVD. CARDIOVASCULAR: Regular rate and rhythm without murmurs, gallops, or rubs. RESPIRATORY: Breath sounds equal bilaterally. No accessory muscle use. GASTROINTESTINAL: Abdomen soft, non-tender, nondistended. MUSCULOSKELETAL: No cyanosis, or edema. BACK: Nontender without obvious deformity. No CVA tenderness. Assessment and Plan - Assessment (1) Hypertension Code(s): I10 - Essential (primary) hypertension Status: Acute (2) Renal artery stenosis Code(s): I70.1 - Atherosclerosis of renal artery Status: Acute (3) Chronic kidney disease Code(s): N18.9 - Chronic kidney disease, unspecified Status: Acute (4) Acute exacerbation of chronic obstructive pulmonary disease (COPD) Code(s): J44.1 - Chronic obstructive pulmonary disease with (acute) exacerbation Status: Acute (5) Acute respiratory distress Code(s): R06.03 - Acute respiratory distress Status: Acute - Plan Patient with small left kidney and has history of angioplasty done in November 2016. Patient has mild chronic kidney disease. Creatinine has been 1.2-1.3, possibly her baseline.'Now the left kidney is small , possibly not working much. BP is labile, was high and now on lower side. Continue to follow the BP and BMP
[2018-08-22] MEDS: Azithromycin Inj 250 MG in Sodium Chlor 0.9% Inj 250 ML IV.SIG SCH (14:22)
--- NOTE | 2018-08-22 14:34 | P.DCO ---
- Diagnosis (1) Acute exacerbation of chronic obstructive pulmonary disease (COPD) Status: Acute - Physical Therapy Order: Evaluate and treat - Home Health Nursing Order: Nursing assessment with vital signs - Traffic Safety Administrator Order: To evaluate: Living conditions/environment Order: To provide: Long range planning - Case Management Consult Case Management Consult-Home Health: Yes - Certification I have seen patient Tianna Alcocer on 08/22/18. My clinical findings support the need for the requested home health care services because: Limited ability to care for self I certify that my clinical findings support that this patient is homebound because: Unsafe to leave home unassisted
[2018-08-22] MEDS: Enoxaparin Inj 30 MG/0.3 ML Syringe SQ SCH (14:59)
[2018-08-23 04:29] VITALS: TEMP 98
[2018-08-23 06:58] LABS: Baso % (Auto) 0.3 % (0.0-2.0); Hematocrit 38.3 % (35.0-46.0); Hemoglobin 12.4 gm/dL (11.6-15.3); Lymph # (Auto) 1.4 th/mm3 (1.0-4.8); Mean Corpuscular HGB Conc 32.5 % (32.0-36.0); Mean Corpuscular Hemoglobin 29.1 pg (27.0-34.0); Mean Corpuscular Volume 89.6 fL (80.0-100.0); Mean Platelet Volume 8.3 fL (7.0-11.0); Mono # (Auto) 0.7 th/mm3 (0.0-0.9); Mono % (Auto) 4.7 % (0.0-8.0); Neut # (Auto) 13.3 th/mm3 (1.8-7.7); Platelet Count 363 th/mm3 (150-450); Red Blood Count 4.28 mil/mm3 (4.00-5.30); Red Cell Distribution Width 14.2 % (11.6-17.2); White Blood Count 15.4 th/mm3 (4.0-11.0)
[2018-08-23 07:13] LABS: Potassium 4.4 meq/L (3.5-5.1)
[2018-08-23 07:17] LABS: Albumin 2.8 g/dL (3.4-5.0); Calcium 8.3 mg/dL (8.5-10.1); Magnesium 2.3 mg/dL (1.5-2.5)
[2018-08-23] MEDS: Ascorbic Acid 500 MG Tablet PO SCH (09:02)
[2018-08-23] MEDS: Metoprolol Tartrate 25 MG Tablet PO SCH ×3 (09:03→21:14)
[2018-08-23] MEDS: predniSONE 10 MG Tablet PO SCH ×2 (09:03→21:13)
[2018-08-23] MEDS: Famotidine 20 MG Tablet PO SCH ×2 (09:03→21:14)
--- NOTE | 2018-08-23 10:24 | P.PNIM ---
Subjective Interval history: Patient says she is feeling right. Shortness of breath continues unchanged without worsening. Discussed with nurse. Blood pressure low this morning in the 80s systolic. 102 systolic on my exam. A.m. meds have been held. Any lightheadedness Physical Exam Vital signs: Vital Signs 08/22/18 10:54 08/22/18 10:56 08/22/18 10:57 Temperature Pulse Rate 66 68 68 Respiratory Rate 18 17 18 Blood Pressure 84/66 L 78/65 L 140/65 Pulse Oximetry 97 97 97 08/22/18 11:00 08/22/18 11:02 08/22/18 11:54 Temperature Pulse Rate 68 68 74 Respiratory Rate 18 19 26 H Blood Pressure 139/58 L 122/60 Pulse Oximetry 97 98 96 08/22/18 12:00 08/22/18 12:54 08/22/18 13:00 Temperature Pulse Rate 74 74 74 Respiratory Rate 22 18 19 Blood Pressure 138/59 L Pulse Oximetry 95 96 97 08/22/18 13:54 08/22/18 14:00 08/22/18 14:54 Temperature Pulse Rate 74 76 80 Respiratory Rate 19 18 24 Blood Pressure 134/56 L 135/70 Pulse Oximetry 97 97 92 L 08/22/18 15:00 08/22/18 15:07 08/22/18 15:54 Temperature Pulse Rate 80 85 88 Respiratory Rate 11 L 20 27 H Blood Pressure 120/63 Pulse Oximetry 95 96 08/22/18 16:00 08/22/18 16:54 08/22/18 17:00 Temperature Pulse Rate 90 80 84 Respiratory Rate 9 L 29 H 28 H Blood Pressure 142/69 H Pulse Oximetry 90 L 97 97 08/22/18 17:54 08/22/18 18:00 08/22/18 19:36 Temperature Pulse Rate 88 86 84 Respiratory Rate 22 23 18 Blood Pressure 163/59 H Pulse Oximetry 98 98 96 08/22/18 20:00 08/22/18 20:54 08/22/18 21:00 Temperature Pulse Rate 88 84 Respiratory Rate 19 20 Blood Pressure 133/59 L 133/59 L 152/61 H Pulse Oximetry 93 L 95 08/22/18 22:00 08/22/18 23:00 08/22/18 23:48 Temperature 98.2 F Pulse Rate 88 72 Respiratory Rate 19 15 17 Blood Pressure 161/72 H 133/65 133/65 Pulse Oximetry 97 98 94 L 08/23/18 04:00 08/23/18 04:28 08/23/18 07:00 Temperature 98.0 F Pulse Rate 76 74 Respiratory Rate 18 16 Blood Pressure 106/75 Pulse Oximetry 96 97 08/23/18 07:43 08/23/18 07:45 08/23/18 08:00 Temperature Pulse Rate 86 76 Respiratory Rate 15 35 H Blood Pressure Pulse Oximetry 97 95 Intake & Output 08/22/18 08/23/18 08/23/18 18:59 06:59 18:59 Intake Total 1670 / 1670 1420 / 1420 Output Total 400 / 400 Balance 1670 / 1670 1020 / 1020 Weight 49.4 kg Intake: IV 250 / 250 Azithromycin Inj 250 MG In NS 250 / 250 Inj 250 ML @ 250 mls/hr IV.SIG Q24H [facility]ICEL Rx#:[id number] Oral 1420 / 1420 1420 / 1420 Output: Urine 400 / 400 Other: # Voids 4 4 Date of Last Bowel Movement 08/18/18 08/23/18 # Bowel Movements 0 1 Narrative: GENERAL: Patient sitting up in bed. Appears comfortable. Systolic blood pressures 102 on my exam. SKIN: Warm and dry. HEAD: Normocephalic. EYES: No scleral icterus. No injection or drainage. NECK: Supple, trachea midline. No JVD. CARDIOVASCULAR: Regular rate and rhythm without murmurs, gallops, or rubs. RESPIRATORY: Breath sounds equal bilaterally. No accessory muscle use. GASTROINTESTINAL: Abdomen soft, non-tender, nondistended. MUSCULOSKELETAL: No cyanosis, or edema. BACK: Nontender without obvious deformity. No CVA tenderness. Results - Labs CBC & Chem 7: 08/23/18 06:45 08/23/18 06:45 Laboratory Results - last 24 hr 08/22/18 08/23/18 08/23/18 10:00 06:45 06:45 CBC w Diff Auto diff final WBC 15.4 H RBC 4.28 Hgb 12.4 Hct 38.3 MCV 89.6 MCH 29.1 MCHC 32.5 RDW 14.2 Plt Count 363 MPV 8.3 Neut % (Auto) 86.0 H Lymph % (Auto) 9.0 [place] % (Auto) 4.7 Eos % (Auto) 0.0 Baso % (Auto) 0.3 Neut # (Auto) 13.3 H Lymph # (Auto) 1.4 [place] # (Auto) 0.7 Eos # (Auto) 0.0 Baso # (Auto) 0.0 WBC Differential . Differential Comment . Sodium 135 L 138 Potassium 3.7 4.4 Chloride 98 103 Carbon Dioxide 26.9 28.0 Anion Gap 10 7 BUN 43 H 41 H Creatinine 1.40 H 1.10 H Estimated GFR 37 L 49 L Random Glucose 158 H 128 H Calcium 8.4 L 8.3 L Phosphorus 4.0 Magnesium 2.3 Albumin 2.8 L Microbiology 08/17/18 07:50 Blood - Peripheral Aerobic Blood Culture - Final No growth in 5 days 08/17/18 07:50 Blood - Peripheral Anaerobic Blood Culture - Final No growth in 5 days 08/17/18 07:55 Blood - Peripheral Aerobic Blood Culture - Final No growth in 5 days 08/17/18 07:55 Blood - Peripheral Anaerobic Blood Culture - Final No growth in 5 days Assessment and Plan - Assessment (1) Acute exacerbation of chronic obstructive pulmonary disease (COPD) Code(s): J44.1 - Chronic obstructive pulmonary disease with (acute) exacerbation Status: Acute - Plan 68 yo F with h/o COPD with chronic hypoxic respiratory failure on home oxygen who presented to ER with 2 day h/o worsening shortness of breath, found to be in COPD exacerbation with acute hypercarbic respiratory failure. //Acute hypercarbic respiratory failure on top of chronic secondary to COPD exacerbation //Acute diastolic CHF exacerbation --likely trigger may be viral since there were sick contacts. - leukocytosis resolved. Repeat ABG better. Flu negative, BCx negative. Keep on oxygen support, duo nebs every 4, nebs every 2 hours as needed, continue Solu -Medrol, switch to oral. On azithromycin, switch from Levaquin. Blood culture negative so far, rapid flu negative. = BNP elevated in the 700s. Add scheduled IV Lasix. Will check echocardiogram. Likely exacerbated secondary to hypertension. = 08/22. Echocardiogram with ejection fraction of 55/60. Trace tricuspid valve regurgitation, mild mitral valve regurgitation. Likely secondary to runaway hypertension. Patient's blood pressure appears to be over controlled today with systolic blood pressures in the 90s. Taper steroids. Will decrease hydralazine and monitor. //Hypertensive Urgency- likely in the setting of respiratory distress. keep on Enalapril 1.25 q6h IV prn, continue metoprolol per home dose. Start lisinopril , BMP stable. -08/20. Blood pressure still elevated with systolic blood pressures in the 190s. Will add amlodipine. Due to history of renal artery stenosis, will consult nephrology for further workup. = 08/21. Follow-up with nephrology relations. Appreciate assistance. = 08/22. Atrophic left kidney as per nephrology. Appreciate assistance. Decrease hydralazine as above due to relative hypotension. We will continue with blood pressure management. = 08/23. Systolic blood pressures decreased to 102. Likely secondary to slow buildup of amlodipine. Will hold amlodipine today, decrease dose of amlodipine , lisinopril, hydralazine. //CKD -creatinine around baseline, monitor. = 08/23. Creatinine stable //DVT prophylaxis-Lovenox //GI prophylaxis-Famotidine Discharge Planning: And plan for discharge with home health today We will decrease blood pressure meds, plan for discharge home health tomorrow.
--- NOTE | 2018-08-23 16:47 | XR ---
EXAM DATE: 08/23/2018 4:25 PM EST AGE/SEX: 68 years / Female INDICATIONS: Short of breath, cough, aneurysm CLINICAL DATA: This is the patient's subsequent encounter. Patient reports that signs and symptoms h ave been present for 4 - 6 days and indicates a pain score of 0/10. MEDICAL/SURGICAL HISTORY: Chronic obstructive pulmonary disease. None. COMPARISON: [facility], CHEST 1V SINGLE AP, 08/17/2018. . FINDINGS: Lungs are hyperinflated. There is mild interstitial prominence. There is no evidence of acute infiltr ate, mass densities or effusions. Heart and mediastinal structures are stable. Calcified breast implants are noted. CONCLUSION: COPD No evidence of acute cardiopulmonary process. Stable chest Electronically signed by: Cali Rubio MD Board Certified Radiologist 08/23/2018 4:45 PM EST
[2018-08-23] MEDS: Enoxaparin Inj 30 MG/0.3 ML Syringe SQ SCH (17:51)
[2018-08-23] MEDS: hydrALAZINE 10 MG Tablet PO SCH (17:52)
[2018-08-23] MEDS: Lisinopril 10 MG Tablet PO SCH (17:52)
[2018-08-23] MEDS: Famotidine PF Inj 20 MG/2 ML Vial IV.PUSH SCH ×2 (17:53→21:15)
[2018-08-23] MEDS: Azithromycin Inj 250 MG in Sodium Chlor 0.9% Inj 250 ML IV.SIG SCH (17:54)
[2018-08-23] MEDS: Senna/Docusate Sodium 8.6/50 MG Tablet PO SCH ×2 (17:54→21:14)
--- NOTE | 2018-08-23 17:54 | CT ---
EXAM DATE: 08/23/2018 5:21 PM EST AGE/SEX: 68 years / Female INDICATIONS: Short of Breath CLINICAL DATA: This is the patient's initial encounter. Patient reports that signs and symptoms have been present for 1 day and indicates a pain score of 2/10. MEDICAL/SURGICAL HISTORY: Chronic obstructive pulmonary disease. Hypertension. Hysterectomy. Heart artery stent RADIATION DOSE: 5.73 CTDI (mGy) COMPARISON: No prior exams available for comparison. TECHNIQUE: Volumetric scanning was performed using a multi-row detector CT scanner during bolus infu isaiah of 75ML ml Omnipaque 350 (iohexol) nonionic water-soluble contrast as a single exam dose. The d katherine was post processed with a variety of visualization algorithms including full volume maximum inten sity projection and sliding thin slab reformation. Using automated exposure control and adjustment o f the mA and/or kV according to patient size, radiation dose was kept as low as reasonably achievable to obtain optimal diagnostic quality images. DICOM format image data is available electronically fo r review and comparison. FINDINGS: No filling defects to suggest pulmonary embolic disease. Moderate emphysema. No adenopathy. No acute findings in the upper abdomen. There is fairly extensive peribronchial thickening especially in the left lower lobe with mucoid plug ging of segmental bronchi in the left lower lobe. Mild cylindrical bronchiectasis also present at bot h lung bases. There is a 6 mm nodule in the right middle lobe. Follow-up recommended in 6 months. Dense capsular calcifications around bilateral breast implants. CONCLUSION: 1. Negative for pulmonary embolus. 2. Peribronchial thickening and cylindrical bronchiectasis at the lung bases with fairly extensive m ucoid plugging, especially left lower lobe. 3. Moderate emphysema. Electronically signed by: Adan Carbajal MD Board Certified Radiologist 08/23/2018 5:53 PM EST
[2018-08-23 18:30] VITALS: BP 176/81
[2018-08-23] MEDS: guaiFENesin 600 MG ER Tablet PO SCH (21:13)
--- NOTE | 2018-08-23 22:03 | P.PNNP ---
Subjective Interval history: Patient seen in the afternoon, alert, no dizziness. Physical Exam Vital signs: Vital Signs 08/22/18 23:00 08/22/18 23:48 08/23/18 04:00 Temperature 98.2 F Pulse Rate 72 76 Respiratory Rate 15 17 18 Blood Pressure 133/65 133/65 106/75 Pulse Oximetry 98 94 L 96 08/23/18 04:28 08/23/18 07:00 08/23/18 07:43 Temperature 98.0 F Pulse Rate 74 86 Respiratory Rate 16 15 Blood Pressure Pulse Oximetry 97 08/23/18 07:45 08/23/18 08:00 08/23/18 08:58 Temperature Pulse Rate 76 82 Respiratory Rate 35 H 17 Blood Pressure 82/60 L Pulse Oximetry 97 95 94 L 08/23/18 08:59 08/23/18 09:00 08/23/18 09:43 Temperature Pulse Rate 86 90 90 Respiratory Rate 24 18 38 H Blood Pressure 84/62 L 99/59 L Pulse Oximetry 94 L 96 96 08/23/18 09:49 08/23/18 10:00 08/23/18 10:07 Temperature Pulse Rate 90 80 86 Respiratory Rate 30 H 24 42 H Blood Pressure 102/70 79/60 L 100/60 Pulse Oximetry 97 97 97 08/23/18 11:00 08/23/18 12:00 08/23/18 13:00 Temperature Pulse Rate 76 78 98 H Respiratory Rate 34 H 23 31 H Blood Pressure 95/68 L 115/82 104/77 Pulse Oximetry 96 97 97 08/23/18 14:00 08/23/18 14:36 08/23/18 15:00 Temperature Pulse Rate 96 H 94 H 92 H Respiratory Rate 44 H 20 32 H Blood Pressure 99/76 L 85/70 L Pulse Oximetry 96 96 08/23/18 15:09 08/23/18 15:10 08/23/18 15:12 Temperature Pulse Rate 88 92 H 96 H Respiratory Rate 38 H 27 H 26 H Blood Pressure 138/63 98/76 L 160/64 H Pulse Oximetry 96 96 95 08/23/18 16:00 08/23/18 16:01 08/23/18 17:21 Temperature Pulse Rate 100 H 102 H 98 H Respiratory Rate 38 H 33 H 32 H Blood Pressure 163/75 H 176/81 H Pulse Oximetry 94 L 97 08/23/18 18:00 08/23/18 19:27 08/23/18 20:00 Temperature Pulse Rate 102 H Respiratory Rate 33 H Blood Pressure Pulse Oximetry 99 98 99 08/23/18 21:55 Temperature Pulse Rate 70 Respiratory Rate 18 Blood Pressure Pulse Oximetry Intake & Output 08/23/18 08/23/18 08/24/18 06:59 18:59 06:59 Intake Total 1420 / 1420 1210 / 1210 250 / 250 Output Total 400 / 400 610 / 610 Balance 1020 / 1020 600 / 600 250 / 250 Weight 49.4 kg Intake: IV 250 / 250 Azithromycin Inj 250 MG In NS 250 / 250 Inj 250 ML @ 250 mls/hr IV.SIG Q24H MARICEL Rx#:[id number] Oral 1420 / 1420 1210 / 1210 Output: Urine 400 / 400 610 / 610 Other: # Voids 4 3 Date of Last Bowel Movement 08/18/18 08/23/18 # Bowel Movements 1 1 Narrative: GENERAL: Patient sitting up in bed. Appears comfortable. Systolic blood pressures 102 on my exam. SKIN: Warm and dry. HEAD: Normocephalic. EYES: No scleral icterus. No injection or drainage. NECK: Supple, trachea midline. No JVD. CARDIOVASCULAR: Regular rate and rhythm without murmurs, gallops, or rubs. RESPIRATORY: Breath sounds equal bilaterally. No accessory muscle use. GASTROINTESTINAL: Abdomen soft, non-tender, nondistended. MUSCULOSKELETAL: No cyanosis, or edema. BACK: Nontender without obvious deformity. No CVA tenderness. Assessment and Plan - Assessment (1) Hypertension Code(s): I10 - Essential (primary) hypertension Status: Acute (2) Renal artery stenosis Code(s): I70.1 - Atherosclerosis of renal artery Status: Acute (3) Chronic kidney disease Code(s): N18.9 - Chronic kidney disease, unspecified Status: Acute (4) Acute exacerbation of chronic obstructive pulmonary disease (COPD) Code(s): J44.1 - Chronic obstructive pulmonary disease with (acute) exacerbation Status: Acute (5) Acute respiratory distress Code(s): R06.03 - Acute respiratory distress Status: Acute - Plan Patient with small left kidney and has history of angioplasty done in November 2016. Patient has mild chronic kidney disease. Creatinine has been 1.2-1.3, possibly her baseline.'Now the left kidney is small , possibly not working much. BP is labile, was high and now on lower side. Continue to follow the BP and BMP. Most likely has labile BP due to atrophic kidney.
[2018-08-24 06:46] LABS: Baso % (Auto) 0.1 % (0.0-2.0); Eos % (Auto) 0.1 % (0.0-4.0); Hematocrit 36.6 % (35.0-46.0); Hemoglobin 11.9 gm/dL (11.6-15.3); Lymph # (Auto) 1.2 th/mm3 (1.0-4.8); Lymph % (Auto) 8.7 % (9.0-44.0); Mean Corpuscular HGB Conc 32.7 % (32.0-36.0); Mean Corpuscular Hemoglobin 29.3 pg (27.0-34.0); Mean Corpuscular Volume 89.6 fL (80.0-100.0); Mean Platelet Volume 8.5 fL (7.0-11.0); Mono # (Auto) 0.6 th/mm3 (0.0-0.9); Mono % (Auto) 4.1 % (0.0-8.0); Neut # (Auto) 12.5 th/mm3 (1.8-7.7); Platelet Count 344 th/mm3 (150-450); Red Blood Count 4.08 mil/mm3 (4.00-5.30); Red Cell Distribution Width 14.1 % (11.6-17.2); White Blood Count 14.3 th/mm3 (4.0-11.0)
[2018-08-24 06:57] LABS: Potassium 4.1 meq/L (3.5-5.1)
[2018-08-24 07:02] LABS: Albumin 2.7 g/dL (3.4-5.0); Calcium 8.3 mg/dL (8.5-10.1); Carbon Dioxide 27.3 meq/L (21.0-32.0); Magnesium 2.1 mg/dL (1.5-2.5)
[2018-08-24 07:06] LABS: Phosphorus 4.3 mg/dL (2.5-4.9)
[2018-08-24 07:07] LABS: Total Protein 6.1 g/dL (6.4-8.2)
[2018-08-24] MEDS: Lisinopril 10 MG Tablet PO SCH (08:37)
[2018-08-24] MEDS: Famotidine 20 MG Tablet PO SCH (08:37)
[2018-08-24] MEDS: predniSONE 10 MG Tablet PO SCH (08:37)
[2018-08-24] MEDS: Senna/Docusate Sodium 8.6/50 MG Tablet PO SCH (08:37)
[2018-08-24] MEDS: guaiFENesin 600 MG ER Tablet PO SCH (08:37)
[2018-08-24] MEDS: Ascorbic Acid 500 MG Tablet PO SCH (08:37)
[2018-08-24] MEDS: Metoprolol Tartrate 25 MG Tablet PO SCH (08:38)
[2018-08-24] MEDS: hydrALAZINE 10 MG Tablet PO SCH ×2 (08:38)
[2018-08-24] MEDS: Famotidine PF Inj 20 MG/2 ML Vial IV.PUSH SCH (08:39)
[2018-08-24] MEDS ORDERED: amLODIPine 5 MG Tablet PO ONE (09:30)
[2018-08-24 10:08] VITALS: PULSE 72; RESP 24
[2018-08-24 10:11] VITALS: O2SAT 97
--- NOTE | 2018-08-24 10:14 | P.DS ---
Date of admission: 08/17/18 09:55 Primary care physician: Arian Thurston MD Brief History from admission: 68 yo F with h/o COPD with chronic hypoxic respiratory failure on home oxygen who presented to ER with 2 day h/o worsening shortness of breath. SOB both at rest and exertion, associated with cough productive of yellowish sputum. Some wheezing. She required to use nebulizers frequently at home but with no relief.No fever or chills. No chest pain. No leg swelling. Her grand children have been sick with cold like symptoms in the past week. Patient continues to smoke cigarettes 1ppd. She received both her flu and pneumonia shots. ROS is negative except as stated above. On presentation to ER, patient was hypertensive, tachycardic,labs- abg-7.2, leucocytosis 17k, CXR-in keeping with COPD. Patient received Vanc, Cefepime, Levofloxacin,NEBS. Started on BIPAP 06/02.She is being admitted to the ICU for further management. DS: Diagnosis - Discharge Diagnosis (1) Acute exacerbation of chronic obstructive pulmonary disease (COPD) Status: Acute DS: Medications - Discharge Medications Prescriptions: albuterol sulfate 1.25 mg INHALATION QID PRN 30 Days ml MDD 4 PRN Reason: Shortness Of Breath Or Wheezing albuterol sulfate [ProAir HFA] 1 puff INHALATION Q6H PRN 30 Days g PRN Reason: Shortness Of Breath Or Wheezing amlodipine 10 mg PO DAILY 30 Days #30 tab clopidogrel [Plavix] 75 mg PO DAILY 30 Days #30 tab guaifenesin [Mucinex] 1,200 mg PO BID 14 Days #56 tab hydralazine 10 mg PO TID 30 Days #90 tab hydralazine 10 mg PO TID 30 Days #90 tab hydrocodone-acetaminophen 1 tab PO Q4H PRN #18 tab PRN Reason: Acute Pain lisinopril 10 mg PO DAILY 30 Days #15 tab prednisone See Taper PO DIRECTED #27 tab DS: Summary Hospital Course: 68 yo F with h/o COPD with chronic hypoxic respiratory failure on home oxygen who presented to ER with 2 day h/o worsening shortness of breath, found to be in COPD exacerbation with acute hypercarbic respiratory failure. //Acute hypercarbic respiratory failure on top of chronic secondary to COPD exacerbation //Acute diastolic CHF exacerbation --likely trigger may be viral since there were sick contacts. - leukocytosis resolved. Repeat ABG better. Flu negative, BCx negative. Keep on oxygen support, duo nebs every 4, nebs every 2 hours as needed, continue Solu -Medrol, switch to oral. On azithromycin, switch from Levaquin. Blood culture negative so far, rapid flu negative. = BNP elevated in the 700s. Add scheduled IV Lasix. Will check echocardiogram. Likely exacerbated secondary to hypertension. = 08/22. Echocardiogram with ejection fraction of 55/60. Trace tricuspid valve regurgitation, mild mitral valve regurgitation. Likely secondary to runaway hypertension. Patient's blood pressure appears to be over controlled today with systolic blood pressures in the 90s. Taper steroids. Will decrease hydralazine and monitor. = 08/24. Asymmetric blood pressures yesterday, blood pressure higher in right arm than left arm. CT pulmonary angiogram negative for pulmonary embolism, also negative for aortic dissection. Continue with blood pressure control. Start on guaifenesin. Prednisone taper. //Hypertensive Urgency- likely in the setting of respiratory distress. keep on Enalapril 1.25 q6h IV prn, continue metoprolol per home dose. Start lisinopril , BMP stable. -08/20. Blood pressure still elevated with systolic blood pressures in the 190s. Will add amlodipine. Due to history of renal artery stenosis, will consult nephrology for further workup. = 08/21. Follow-up with nephrology relations. Appreciate assistance. = 08/22. Atrophic left kidney as per nephrology. Appreciate assistance. Decrease hydralazine as above due to relative hypotension. We will continue with blood pressure management. = 08/23. Systolic blood pressures decreased to 102. Likely secondary to slow buildup of amlodipine. Will hold amlodipine today, decrease dose of amlodipine , lisinopril, hydralazine. //CKD -creatinine around baseline, monitor. = 08/24 creatinine 0.9. Improved. //DVT prophylaxis-Lovenox //GI prophylaxis-Famotidine Discharge Planning: Discharge with home health today. Follow-up with consultants as outpatient. - Time Spent with Patient Total time spent providing and/or coordinating discharge services: Greater than 30 minutes - Quality: VTE Deep Vein Thrombosis/Pulmonary Embolism Present on Admission: No Exam Vital signs: Vital Signs 08/23/18 11:00 08/23/18 12:00 08/23/18 13:00 Pulse Rate 76 78 98 H Respiratory Rate 34 H 23 31 H Blood Pressure 95/68 L 115/82 104/77 Pulse Oximetry 96 97 97 08/23/18 14:00 08/23/18 14:36 08/23/18 15:00 Pulse Rate 96 H 94 H 92 H Respiratory Rate 44 H 20 32 H Blood Pressure 99/76 L 85/70 L Pulse Oximetry 96 96 08/23/18 15:09 08/23/18 15:10 08/23/18 15:12 Pulse Rate 88 92 H 96 H Respiratory Rate 38 H 27 H 26 H Blood Pressure 138/63 98/76 L 160/64 H Pulse Oximetry 96 96 95 08/23/18 16:00 08/23/18 16:01 08/23/18 17:21 Pulse Rate 100 H 102 H 98 H Respiratory Rate 38 H 33 H 32 H Blood Pressure 163/75 H 176/81 H Pulse Oximetry 94 L 97 08/23/18 18:00 08/23/18 19:27 08/23/18 20:00 Pulse Rate 102 H Respiratory Rate 33 H Blood Pressure Pulse Oximetry 99 98 99 08/23/18 21:55 08/23/18 22:00 08/23/18 22:56 Pulse Rate 70 70 Respiratory Rate 18 22 35 H Blood Pressure Pulse Oximetry 94 L 08/23/18 23:26 08/24/18 02:00 08/24/18 03:21 Pulse Rate 71 67 Respiratory Rate 14 13 18 Blood Pressure Pulse Oximetry 99 08/24/18 06:00 08/24/18 08:00 08/24/18 10:09 Pulse Rate 71 72 Respiratory Rate 22 24 Blood Pressure Pulse Oximetry 96 99 08/24/18 10:10 Pulse Rate Respiratory Rate Blood Pressure Pulse Oximetry 97 Intake & Output 08/23/18 08/24/18 08/24/18 18:59 06:59 18:59 Intake Total 1210 / 1210 610 / 610 Output Total 610 / 610 1200 / 1200 Balance 600 / 600 -590 / -590 Intake: IV 250 / 250 Azithromycin Inj 250 MG In NS 250 / 250 Inj 250 ML @ 250 mls/hr IV.SIG Q24H [facility]IC[facility] Rx#:[id number] Oral 1210 / 1210 360 / 360 Output: Urine 610 / 610 1200 / 1200 Other: # Voids 3 Date of Last Bowel Movement 08/23/18 # Bowel Movements 1 0 Results Procedures completed during hospitalization: No invasive procedures. Labs on day of discharge: Labs from last 24 hours 08/24/18 08/24/18 06:05 06:05 CBC w Diff Auto diff final WBC 14.3 H RBC 4.08 Hgb 11.9 Hct 36.6 MCV 89.6 MCH 29.3 MCHC 32.7 RDW 14.1 Plt Count 344 MPV 8.5 Neut % (Auto) 87.0 H Lymph % (Auto) 8.7 L [place] % (Auto) 4.1 Eos % (Auto) 0.1 Baso % (Auto) 0.1 Neut # (Auto) 12.5 H Lymph # (Auto) 1.2 [place] # (Auto) 0.6 Eos # (Auto) 0.0 Baso # (Auto) 0.0 WBC Differential . Differential Comment . Sodium 138 Potassium 4.1 Chloride 102 Carbon Dioxide 27.3 Anion Gap 9 BUN 35 H Creatinine 0.99 Estimated GFR 56 L Random Glucose 119 H Calcium 8.3 L Phosphorus 4.3 Magnesium 2.1 Total Bilirubin 0.3 Direct Bilirubin 0.1 Indirect Bilirubin 0.2 AST 13 L ALT 33 Alkaline Phosphatase 74 Total Protein 6.1 L D Albumin 2.7 L - Impressions ITS Impressions Abdomen/Bladder Ultrasound 08/21/18 00:00 CONCLUSION: 1. Small left kidney which may be related to renal ischemia. 2. No hydronephrosis or solid renal mass. Chest CTA 08/23/18 00:00 CONCLUSION: 1. Negative for pulmonary embolus. 2. Peribronchial thickening and cylindrical bronchiectasis at the lung bases with fairly extensive mucoid plugging, especially left lower lobe. 3. Moderate emphysema. Chest X-Ray 08/23/18 00:00 CONCLUSION: COPD No evidence of acute cardiopulmonary process. Stable chest Discharge Plan - Discharge Disposition Patient Disposition: W/Home Health Service - Discharge Condition Condition: Stable - Discharge Order Discharge Orders: Discharge Order (Routine); Ordered 08/24/18 Ordered By: Jayme Pickard - Discharge Details Anticipated Discharge Date: 08/23/18 - Physicians Team Primary Care Provider: Arian Thurston V Attending Provider: Jayme Pickard Other Providers: Norman Logan MD
[2018-08-24] MEDS ORDERED: amLODIPine 5 MG Tablet PO SCH (14:00)
== END 2018-08-24 10:30 | disposition home health service (06) | DRG 189 ==
LOC: PHED 07:49 → PHEDA 09:55 → PHICU 11:27
PROVIDERS: ADMIT Internal Medicine; ATTEND Internal Medicine
CPT/HCPCS: 36600; 71010; 71045; 71275; 76775; 80048; 80053; 80069; 80076; 82805; 83520; 83605; 83735; 83880; 84484; 85025; 85610; 85730; 87040; 87070; 87205; 87275; 87276; 87641; 87804; 90765; 90767; 90775; 90776; 93005; 93306; 94002; 94003; 94640; 94656; 94657; 94664; 94665; 94667; 94668; 96365; 96367; 96375; 96376; 97162; 99291; J0360; J0456; J0692; J0780; J1650; J1940; J1956; J2405; J2920; J3370; J7050; J7506; J7512; Q9967